=== PATIENT | female | born 1950 | race Caucasian/White ===

== ENCOUNTER → 2016-09-20 | Outpatient (REF) | payer MEDICARE ==
[~2016-09-20] MED LIST: AMLO5TAB2 PO; AZIT500T2 PO; CALCTAB97 PO; CARV25TA PO; CORITAB5 PO; GLIM1TAB PO; HYDR25TAB PO; LANTINJ4 SC; LEVA750T PO; LOSA100T36 PO; OMEP20CA3 PO; PRAV40TA2 PO
== END ==
LOC: M SFHCCLAY 15:55
PROVIDERS: ATTEND Family Medicine
DX: R30.0 Dysuria (principal)

== ENCOUNTER → 2016-12-26 | Outpatient (REF) | payer MEDICARE ==
[2016-12-26 12:59] LABS: CALCIUM LEVEL 8.7 MG/DL (8.8-10.2); CREATININE FOR GFR 1.58 MG/DL (0.55-1.02); GLOMERULAR FILTRATION RATE 34.8 (>45); POTASSIUM SERUM 4.5 MEQ/L (3.5-5.1)
== END ==
LOC: M SFHCCLAY 08:47
PROVIDERS: ATTEND Family Medicine
DX: E11.22 Type 2 diabetes mellitus with diabetic chronic kidney disease (principal)

== ENCOUNTER → 2017-04-23 | Outpatient (REF) | payer MEDICARE ==
[~2017-04-23] MED LIST changes: -LEVA750T PO; +LEVA750T7 PO
[2017-04-23 17:57] LABS: CALCIUM LEVEL 8.7 MG/DL (8.8-10.2); CREATININE FOR GFR 1.78 MG/DL (0.55-1.02); GLOMERULAR FILTRATION RATE 30.4 (>45); POTASSIUM SERUM 4.9 MEQ/L (3.5-5.1)
== END ==
LOC: M SFHCCLAY 12:13
PROVIDERS: ATTEND Family Medicine
DX: E11.9 Type 2 diabetes mellitus without complications (principal); I10 Essential (primary) hypertension

== ENCOUNTER → 2018-03-14 | Outpatient (REF) | payer MEDICARE ==
[2018-03-14 16:35] LABS: ANION GAP 8 MEQ/L (8-16); BLOOD UREA NITROGEN 33 MG/DL (7-18); CALCIUM LEVEL 8.3 MG/DL (8.8-10.2); CARBON DIOXIDE LEVEL 25 MEQ/L (21-32); CHLORIDE LEVEL 109 MEQ/L (98-107); CREATININE FOR GFR 1.75 MG/DL (0.55-1.30); GLOMERULAR FILTRATION RATE 30.9 (>45); GLUCOSE, FASTING 243 MG/DL (70-100); POTASSIUM SERUM 4.8 MEQ/L (3.5-5.1); SODIUM LEVEL 142 MEQ/L (136-145)
[2018-03-14 16:42] LABS: ESTIMATED AVERAGE GLUCOSE 223 MG/DL (60-110); HEMOGLOBIN A1c 9.4 %
== END ==
LOC: M SFHCCLAY 12:04
DX: E11.9 Type 2 diabetes mellitus without complications (principal)
CPT/HCPCS: 83036

== ENCOUNTER → 2018-07-03 | Outpatient (REF) | payer MEDICARE ==
[2018-07-04 12:09] LABS: ANION GAP 8 MEQ/L (8-16); BLOOD UREA NITROGEN 36 MG/DL (7-18); CALCIUM LEVEL 9.1 MG/DL (8.8-10.2); CARBON DIOXIDE LEVEL 24 MEQ/L (21-32); CHLORIDE LEVEL 105 MEQ/L (98-107); GLOMERULAR FILTRATION RATE 28.1 (>45); GLUCOSE, FASTING 146 MG/DL (70-100); POTASSIUM SERUM 5.3 MEQ/L (3.5-5.1); SODIUM LEVEL 137 MEQ/L (136-145)
[2018-07-04 15:20] LABS: ESTIMATED AVERAGE GLUCOSE 237 MG/DL (60-110); HEMOGLOBIN A1c 9.9 %
== END ==
LOC: M SFHCCLAY 16:41
DX: E11.3312 Type 2 diabetes mellitus with moderate nonproliferative diabetic retinopathy with macular edema, left eye (principal)
CPT/HCPCS: 83036

== ENCOUNTER → 2018-08-21 | Outpatient (REF) | payer MEDICARE ==
[~2018-08-21] MED LIST changes: -AMLO5TAB2 PO; +AMLO5TAB4 PO; +LOSA-4 PO; -LOSA100T36 PO
[2018-08-22 11:39] LABS: ALBUMIN 3.7 GM/DL (3.2-5.2); CALCIUM LEVEL 9.2 MG/DL (8.8-10.2); CREATININE FOR GFR 2.51 MG/DL (0.55-1.30); GLOMERULAR FILTRATION RATE 20.4 (>45); PHOSPHORUS LEVEL 5.5 MG/DL (2.5-4.9); THYROID STIMULATING HORMONE 1.4 uIU/ML (0.358-3.740)
== END ==
LOC: M SFHCCLAY 15:09
PROVIDERS: ATTEND Family Medicine
DX: E11.22 Type 2 diabetes mellitus with diabetic chronic kidney disease (principal)

== ENCOUNTER → 2018-08-21 | Outpatient (CLI) | payer MEDICARE ==
[~2018-08-21] MED LIST changes: -AMLO5TAB4 PO; +AMLO5TAB6 PO; -LOSA-4 PO; +LOSA100T50 PO
--- NOTE | 2018-08-21 15:56 | REP ---
Clinical: Diabetes mellitus . Comparison: 02/21/2015 . Technique: PA and lateral. Findings: The mediastinum and cardiac silhouette are normal. The lung amin are clear and without acute consolidation, effusion, or pneumothorax. The skeletal structures are intact and normal. Impression: 1. No acute cardiopulmonary process. Electronically Signed by Devang Stewart MD 08/21/2018 03:48 P
== END ==
LOC: M CLY 15:25
PROVIDERS: ATTEND Family Medicine
DX: E11.22 Type 2 diabetes mellitus with diabetic chronic kidney disease (principal)
CPT/HCPCS: 71046; 80069; 84443; G0463

== ENCOUNTER → 2018-09-01 | Outpatient (REF) | payer MEDICARE ==
[2018-09-01 12:30] LABS: CALCIUM LEVEL 8.8 MG/DL (8.8-10.2); CREATININE FOR GFR 2.13 MG/DL (0.55-1.30); GLOMERULAR FILTRATION RATE 24.5 (>45); POTASSIUM SERUM 3.1 MEQ/L (3.5-5.1)
== END ==
LOC: M SFHCCLAY 09:08
PROVIDERS: ATTEND Family Medicine
DX: E11.22 Type 2 diabetes mellitus with diabetic chronic kidney disease (principal); N18.9 Chronic kidney disease, unspecified

== ENCOUNTER → 2018-11-04 | Outpatient (CLI) | payer MEDICARE ==
--- NOTE | 2018-11-04 16:27 | REP ---
Chest two views HISTORY: Chronic heart failure Comparison: 08/21/2018 The lungs are clear. The cardiac silhouette is enlarged. The pulmonary vasculature is normal in appearance. The bony structure is intact. IMPRESSION: Cardiomegaly.
== END ==
LOC: M CLY 15:16
PROVIDERS: ATTEND Family Medicine
DX: I50.33 Acute on chronic diastolic (congestive) heart failure (principal)
CPT/HCPCS: 71046; 80048; G0463

== ENCOUNTER → 2018-11-04 | Outpatient (REF) | payer MEDICARE ==
[2018-11-05 11:37] LABS: CALCIUM LEVEL 8.9 MG/DL (8.8-10.2); CREATININE FOR GFR 2.15 MG/DL (0.55-1.30); GLOMERULAR FILTRATION RATE 24.3 (>45); POTASSIUM SERUM 4.4 MEQ/L (3.5-5.1)
== END ==
LOC: M SFHCCLAY 14:34
PROVIDERS: ATTEND Family Medicine
DX: E11.22 Type 2 diabetes mellitus with diabetic chronic kidney disease (principal)

== ENCOUNTER → 2018-12-17 | Outpatient (REF) | payer MEDICARE ==
[~2018-12-17] MED LIST changes: +BASA100I SC; +CARV12.5 PO; +CHOL4POW4 PO; +CHOL4PW PO; +FURO40TA2 PO; +GLIM2TAB PO; +HYDR-2541 PO; +INVO100T PO; +LANS30CA93 PO; +NYAM10003 TOP; +NYST1POW9 TOP; +PATIENT COMMENTS; +POTA10TA67 PO; +RISATAB3 PO; +TRAD5TAB PO
[2018-12-17 17:34] LABS: CALCIUM LEVEL 8.4 MG/DL (8.8-10.2); CREATININE FOR GFR 1.58 MG/DL (0.55-1.30); GLOMERULAR FILTRATION RATE 34.6 (>45); POTASSIUM SERUM 5.1 MEQ/L (3.5-5.1)
== END ==
LOC: M LABDRWCV 17:19
PROVIDERS: ATTEND Physician Assistant
DX: R19.7 Diarrhea, unspecified (principal); E87.6 Hypokalemia; R79.89 Other specified abnormal findings of blood chemistry

== ENCOUNTER 2018-12-25 12:16 | Inpatient (IN) | payer MEDICARE ==
[~2018-12-25 12:16] MED LIST changes: -BASA100I SC; -CARV12.5 PO; -CHOL4POW4 PO; -CHOL4PW PO; -FURO40TA2 PO; -GLIM2TAB PO; -HYDR25TAB PO; -INVO100T PO; -LANS30CA93 PO; -NYAM10003 TOP; -NYST1POW9 TOP; -PATIENT COMMENTS; -POTA10TA67 PO; -RISATAB3 PO; -TRAD5TAB PO
[2018-12-25] MEDS ORDERED: LANS30CA93 PO (12:38)
[2018-12-25] MEDS ORDERED: POTA10TA67 PO (12:38)
[2018-12-25] MEDS ORDERED: NS 500 ML IV ONE (12:45)
[2018-12-25 12:58] LABS: BASO # 0.1 10^3/uL (0.0-0.2); HEMATOCRIT 37.6 % (36.0-47.0); HEMOGLOBIN 11.4 g/dl (12.0-15.5); LYMPH # 0.8 10^3/uL (1.5-4.5); LYMPH % 15.7 % (24.0-44.0); MEAN CORPUSCULAR HEMOGLOBIN 23.6 pg (27.0-33.0); MEAN CORPUSCULAR HGB CONC 30.3 g/dl (32.0-36.5); MEAN CORPUSCULAR VOLUME 77.7 fl (80.0-96.0); MONO # 0.6 10^3/uL (0.0-0.8); MONO % 11.5 % (0.0-5.0); NEUTROPHILS # 3.6 10^3/uL (1.8-7.7); NEUTROPHILS % 71.6 % (36.0-66.0); PLATELET COUNT, AUTOMATED 306 10^3/uL (150-450); RED BLOOD COUNT 4.84 10^6/uL (4.00-5.40)
[2018-12-25 13:09] LABS: PROTHROMBIN TIME 13.3 SECONDS (12.1-14.4)
[2018-12-25 13:10] LABS: PARTIAL THROMBOPLASTIN TIME 26.8 SECONDS (25.4-37.6)
--- NOTE | 2018-12-25 13:33 | REP ---
Chest two views HISTORY: Abdominal pain Comparison: 11/04/2018 The lungs are clear. The heart is normal in size. The pulmonary vasculature is normal in appearance. The bony structure is intact. IMPRESSION: No acute disease. Electronically Signed by Cullen Woody MD 12/25/2018 01:24 P
[2018-12-25 13:39] LABS: ALBUMIN 3.1 GM/DL (3.2-5.2); ALT/SGPT 21 U/L (12-78); BILIRUBIN,DIRECT 0.2 MG/DL (0.0-0.2); BILIRUBIN,TOTAL 0.9 MG/DL (0.2-1.0); BLOOD UREA NITROGEN 25 MG/DL (7-18); CALCIUM LEVEL 8.1 MG/DL (8.8-10.2); CARBON DIOXIDE LEVEL 29 MEQ/L (21-32); CHLORIDE LEVEL 106 MEQ/L (98-107); CPK CREATINE PHOSPHOKINASE 43 U/L (26-192); GLUCOSE, FASTING 135 MG/DL (70-100); LIPASE 134 U/L (73-393); MB/CK RELATIVE INDEX 3.26 (< OR =4); POTASSIUM SERUM 2.9 MEQ/L (3.5-5.1); SODIUM LEVEL 140 MEQ/L (136-145); TOTAL PROTEIN 6.4 GM/DL (6.4-8.2); TROPONIN I < 0.02 NG/ML (< 0.10)
--- NOTE | 2018-12-25 13:47 | REP ---
GALLBLADDER ULTRASOUND: HISTORY: Right upper quadrant pain. A 1.9 cm mobile stone is present in the gallbladder. There is gallbladder sludge. The gallbladder wall is thickened measuring 3.8 mm. The common bile duct measures 7.6 mm. Scattered cysts are present in the liver. There are 1.5 and 1.8 cm cysts in the right lobe of the liver. There is a 1.3 cm cyst in the left lobe of the liver. The pancreas is not seen due to overlying bowel gas. The right kidney measures 4.7 cm in transverse x 4.5 cm in AP x 9.8 cm in cephalocaudal dimensions. A 1.7 cm isoechoic focus is present in the medial kidney. This may represent a lobulation, however, a mass cannot be excluded. There is no free fluid. IMPRESSION: 1. Cholelithiasis and gallbladder sludge. 2. Small liver cysts. 3. There is a 1.7 cm isoechoic focus in the right kidney that most likely represents a lobulation, however, a mass cannot be excluded. Electronically Signed by Cullen Woody MD 12/25/2018 01:52 P
[2018-12-25] MEDS ORDERED: POTASSIUM CHLORIDE 10 MEQ SR TABLET PO ONE (14:00)
[2018-12-25] MEDS ORDERED: NS 1,000 ML IV SCH (14:00)
[2018-12-25] MEDS ORDERED: KCL 10MEQ/100ML SWI (KRUN) 10 MEQ in APPROPRIATE DILUENT 1 EA IV ONE (14:30)
[2018-12-25] MEDS ORDERED: TRAD5TAB PO (14:33)
[2018-12-25] MEDS ORDERED: FURO40TA2 PO (14:33)
[2018-12-25] MEDS ORDERED: BASA100I SC (14:33)
[2018-12-25] MEDS ORDERED: INVO100T PO (14:33)
[2018-12-25] MEDS ORDERED: LOSA100T50 PO (14:33)
[2018-12-25] MEDS ORDERED: HYDR25TAB PO (14:33)
[2018-12-25 15:15] LABS: MAGNESIUM LEVEL 1.8 MG/DL (1.8-2.4)
[2018-12-25] MEDS ORDERED: GLUCOSE 4 GM CHEW TABLET PO PRN (15:15)
[2018-12-25] MEDS ORDERED: GLUCAGON FOR INJ 1 MG VIAL (J1610) SC PRN (15:15)
[2018-12-25] MEDS ORDERED: DEXTROSE 50% 50 ML SYRINGE IV PRN (15:15)
[2018-12-25] MEDS ORDERED: NS 1,500 ML IV SCH (15:30)
--- NOTE | 2018-12-25 15:31 | HPEPDOC ---
General Date of Admission 12/25/18 Primary Care Physician: Luis Colmenares MD Attending Physician: Ruben Tao MD Chief Complaint The patient is a 68-year-old female admitted with a reason for visit of Low Blood Pressure. History of Present Illness 68-year-old female with past medical history of hypertension, diabetes, dyslipidemia, and chronic kidney disease stage III presented to the ER with a chief complaint of diarrhea over the last 7-10 days. The patient states that she was seen in the ER at [facility] last Saturday and discharged from the ER with a diagnosis of gastritis. The patient tells me that over the last 10 days she has had nonbloody loose stools, averaging about 5 per day. She denies any fevers or abdominal pain. She does endorse some nausea but no vomiting. Of note, the patient states that she has several friends who have had similar symptoms. She denies recent hospitalizations, use of antibiotics, recent travel, or ingestion of any foreign foods. The patient was seen by her primary care physician today, and was sent to the ER due to borderline low blood pressures. The patient will be admitted under the service of the [facility] for further evaluation of possible infectious etiology for her persistent diarrhea. Home Medications Scheduled Amlodipine Besylate (Amlodipine Besylate) 5 Mg Tab, 5 MG PO DAILY, (Reported) Canagliflozin (Invokana) 100 Mg Tablet, 100 MG PO DAILY, (Reported) Carvedilol (Carvedilol) 25 Mg Tab, 12.5 MG PO BID, (Reported) Furosemide (Furosemide) 40 Mg Tablet, 40 MG PO DAILY, (Reported) Hydrochlorothiazide (Hydrochlorothiazide) 25 Mg Tablet, 50 MG PO DAILY, (Reported) Insulin Glargine,Hum.rec.anlog (Basaglar Kwikpen U-100) 100 Unit/1 Ml Insuln.pen, 50 UNIT SC DAILY, (Reported) Lansoprazole (Lansoprazole) 30 Mg Capsule.dr, 30 MG PO DAILY, (Reported) Linagliptin (Tradjenta) 5 Mg Tablet, 5 MG PO DAILY, (Reported) Losartan Potassium (Losartan Potassium) 100 Mg Tablet, 100 MG PO DAILY, (Reported) Potassium Chloride (Potassium Chloride) 10 Meq Tab.er.prt, 10 MEQ PO BID, (Reported) Pravastatin Sodium (Pravastatin Sodium) 40 Mg Tab, 40 MG PO DAILY, (Reported) Allergies Coded Allergies: Penicillins (Verified Allergy, Intermediate, Rash, 12/25/18) metformin (Verified Allergy, Intermediate, Rash, 12/25/18) pioglitazone (Verified Adverse Reaction, Intermediate, Elevated HR, 12/25/18) Sulfa (Sulfonamide Antibiotics) (Verified Adverse Reaction, Mild, upset stomach, 12/25/18) hydrochlorothiazide (Verified Adverse Reaction, Mild, Nausea, 12/25/18) rofecoxib (Verified Adverse Reaction, Mild, Upset stomach, 12/25/18) triamterene (Verified Adverse Reaction, Mild, Upset stomach, 12/25/18) Past Medical History Medical History As noted in HPI Social History * Smoker: Denies Alcohol: Denies Drugs: denies A-FIB/CHADSVASC A-FIB History Current/History of A-Fib/PAF?: No Review of Systems Other systems 10 point review of systems negative unless otherwise specified in HPI. Physical Examination General Exam: Positive: Alert, Cooperative, No Acute Distress ENT Exam: Positive: Atraumatic; Negative: Mucous membr. moist/pink (dry mucous membranes) Neck Exam: Negative: JVD Chest Exam: Positive: Clear to auscultation, Normal air movement Heart Exam: Positive: Rate Normal, Normal S1, Normal S2 Telemetry: Positive: Sinus Abdomen Exam: Positive: Soft; Negative: Tenderness Extremity Exam: Negative: Tenderness, Swelling Psych Exam: Positive: Oriented x 3 Vital Signs Vital Signs Date Time Temp Pulse Resp B/P (MAP) Pulse Ox O2 Delivery O2 Flow Rate FiO2 12/25/18 14:45 70 123/65 (84) 99 12/25/18 13:19 97.4 12/25/18 12:41 20 Room Air Laboratory Data Labs 24H Laboratory Tests 2 12/25/18 12:43: Immature Granulocyte % (Auto) 0.2, White Blood Count 5.0, Red Blood Count 4.84, Hemoglobin 11.4L, Hematocrit 37.6, Mean Corpuscular Volume 77.7L, Mean Corpuscular Hemoglobin 23.6L, Mean Corpuscular Hemoglobin Concent 30.3L, Red Cell Distribution Width 17.1H, Platelet Count 306, Neutrophils (%) (Auto) 71.6H, Lymphocytes (%) (Auto) 15.7L, Monocytes (%) (Auto) 11.5H, Eosinophils (%) (Auto) 0.0, Basophils (%) (Auto) 1.0, Neutrophils # (Auto) 3.6, Lymphocytes # (Auto) 0.8L, Monocytes # (Auto) 0.6, Eosinophils # (Auto) 0.0, Basophils # (Auto) 0.1, Nucleated Red Blood Cells % (auto) 0.0, Prothrombin Time 13.3, Prothromb Time International Ratio 1.00, Activated Partial Thromboplast Time 26.8, Anion Gap 5L, Glomerular Filtration Rate 28.0L, Calcium Level 8.1L, Magnesium Level 1.8, Aspartate Amino Transf (AST/SGOT) 14, Alanine Aminotransferase (ALT/SGPT) 21, Alkaline Phosphatase 139H, Total Bilirubin 0.9, Direct Bilirubin 0.2, Total Cre atine Kinase 43, Creatine Kinase MB 1.0, Creatine Kinase MB Relative Index 3.26, Troponin I < 0.02, Total Protein 6.4, Albumin 3.1L, Albumin/Globulin Ratio 0.94L, Lipase 134 CBC/BMP Laboratory Tests 12/25/18 12:43 Red Blood Count 4.84, Mean Corpuscular Volume 77.7 L, Mean Corpuscular Hemoglobin 23.6 L, Mean Corpuscular Hemoglobin Concent 30.3 L, Red Cell Distribution Width 17.1 H, Neutrophils (%) (Auto) 71.6 H, Lymphocytes (%) (Auto) 15.7 L, Monocytes (%) (Auto) 11.5 H, Eosinophils (%) (Auto) 0.0, Basophils (%) (Auto) 1.0, Neutrophils # (Auto) 3.6, Lymphocytes # (Auto) 0.8 L, Monocytes # (Auto) 0.6, Eosinophils # (Auto) 0.0, Basophils # (Auto) 0.1 Microbiology Microbiology 12/25/18 Gastrointestinal Tract Panel (PCR), Received Pending Plan / VTE VTE Prophylaxis Ordered?: Yes Plan Plan Persistent Diarrhea CT Abd/Pel pending GI Panel ordered in the ER White blood cell count within normal limits, patient afebrile in the ER, and denying any abdominal pain We will follow up on the CT abd/pel and GI panel before ordering any anti- diarrheals. Cont supportive treatment with judicious IV fluid hydration given history of Lasix/HCTZ use Right Sided Lobular Cyst vs Renal Mass on Ultrasound CT Abd/Pel ordered for further delineation Hypokalemia 2/2 Diarrhea We will check a mag level Supplemental K ordered Chronic Kidney Disease Stage III/IV Serum Cr appears to be at baseline DM Basal insulin ordered at reduced dose due to decreased appetite/diarrhea, this will need to be titrated based on PO intake blood glucose levels ISS ordered for additional coverage Hypertension Will hold B/P meds at this time as the patient was noted to be borderline h ypotensive on arrival DVT prophylaxis Heparin subcutaneous The patient will be admitted under the service of the [facility], who will begin to follow patient at 7 PM on 12/25/18. VEENA HUI MD December 25, 2018 15:31
--- NOTE | 2018-12-25 16:06 | REP ---
CT ABDOMEN AND PELVIS WITHOUT CONTRAST: CT abdomen and pelvis was performed without oral or IV contrast. Sagittal and coronal reconstruction images are performed. There is a 5 mm nodule in the right lower lobe. There is a large hiatal hernia. There is a 1 cm cyst in the left lobe of the liver, both cysts 1.4 cm in diameter more inferiorly along the ligamentum teres. Gallstones are seen in the gallbladder. A large gallstone is seen about 2 cm in diameter in the region of the neck of the gallbladder, and another smaller 2-3 calculi are seen adjacent to that. There is no gallbladder wall thickening. A few calcifications are seen in the spleen. Adrenals are unremarkable. Pancreas is grossly unremarkable. There appears to be a duodenal diverticulum. Kidneys demonstrate cortical scarring and mild atrophy. There is no gross renal mass, although evaluation for mass is limited without IV contrast. There is no hydronephrosis or nephrolithiasis bilaterally. There are mild to moderate atherosclerotic calcifications of the abdominal aorta without aneurysm. There is no adenopathy. There is no free air or free fluid. There is no bowel wall thickening. There is sigmoid diverticulosis without evidence of acute diverticulitis. Uterus is deviated to the right of midline. There is calcified fibroid measuring 1.5 cm in diameter. Urinary bladder is grossly unremarkable. There are degenerative changes of the spine. IMPRESSION: Large hiatal hernia. Two hypodensities in the liver probably represent cysts. There are gallstones in the gallbladder without gallbladder wall edema. No gross renal mass is seen but evaluation for renal mass is limited without IV contrast. There is sigmoid diverticulosis without diverticulitis. 5 mm nodule in the right lower lobe. Recommend followup CT of the chest to evaluate fort other possible nodules. Electronically Signed by Reid Lorenz MD 12/26/2018 12:27 P
[2018-12-25] MEDS: HumaLOG INSULIN (NovoLOG) PER UNIT SC SCH ×2 (18:15→21:00)
[2018-12-25] MEDS: HEPARIN SOD (PORCINE) 5000 UNITS/ML VIAL SC SCH (21:40)
[2018-12-25] MEDS: ACETAMINOPHEN TAB 650MG DOSE (2X325MG) PO PRN (21:41)
[2018-12-25 22:00] VITALS: BP 112/64
--- NOTE | 2018-12-25 22:19 | ECGEPIP ---
Stationary ECG Study [facility] - ED Test Date: 2018-12-25 Pat Name: ANSON BENSON Department: Room: - Gender: F [employer]: earl : 1950 Requested By: JORGITO Rogers Order Number: [id number] Reading MD: Lucia Gibson Measurements Intervals [place] Rate: 77 P: 34 TN: 151 QRS: 4 QRSD: 90 T: 43 QT: 418 QTc: 476 Interpretive Statements SINUS RHYTHM WITH FREQUENT SUPRAVENTRICULAR PREMATURE COMPLEXES POSSIBLE LEFT ATRIAL ENLARGEMENT MINIMAL ST DEPRESSION ABNORMAL RHYTHM ECG DECREASED RATE 02/21/15 Electronically Signed On 12-25-2018 22:18:55 EDT by Lucia Gibson
[2018-12-26 06:00] VITALS: BP 116/54
[2018-12-26 06:32] LABS: HEMATOCRIT 34.4 % (36.0-47.0); HEMOGLOBIN 10.1 g/dl (12.0-15.5); MEAN CORPUSCULAR HEMOGLOBIN 22.5 pg (27.0-33.0); MEAN CORPUSCULAR HGB CONC 29.4 g/dl (32.0-36.5); MEAN CORPUSCULAR VOLUME 76.6 fl (80.0-96.0); PLATELET COUNT, AUTOMATED 294 10^3/uL (150-450); RED BLOOD COUNT 4.49 10^6/uL (4.00-5.40)
[2018-12-26 07:04] LABS: ALBUMIN 2.6 GM/DL (3.2-5.2); BILIRUBIN,TOTAL 0.6 MG/DL (0.2-1.0); CALCIUM LEVEL 7.8 MG/DL (8.8-10.2); CREATININE FOR GFR 1.75 MG/DL (0.55-1.30); GLOMERULAR FILTRATION RATE 30.8 (>45); MAGNESIUM LEVEL 1.7 MG/DL (1.8-2.4); POTASSIUM SERUM 2.7 MEQ/L (3.5-5.1); TOTAL PROTEIN 5.7 GM/DL (6.4-8.2)
[2018-12-26] MEDS ORDERED: KCL 10MEQ/100ML SWI (KRUN) 10 MEQ in APPROPRIATE DILUENT 1 EA IV ONE (09:00)
[2018-12-26] MEDS: HumaLOG INSULIN (NovoLOG) PER UNIT SC SCH ×4 (09:10→20:57)
[2018-12-26] MEDS: HEPARIN SOD (PORCINE) 5000 UNITS/ML VIAL SC SCH ×2 (09:10→20:57)
[2018-12-26] MEDS: LEVEMIR (INSULIN DETEMIR) 1 UNITS/0.01ML SC SCH (09:10)
[2018-12-26 09:35] LABS: PERCENT SATURATION 6.6 % (13.2-45.0)
--- NOTE | 2018-12-26 10:57 | IPNPDOC ---
Subjective Date Seen The patient was seen on 12/26/18. Subjective Chief Complaint/HPI Patient reports continued diarrhea, nausea and is now with some intermittent mild lower abdominal discomfort. No vomiting, no fevers, she denies bloody stools Constitutional: Denies: Chills, Fever Pulmonary: Denies: Dyspnea, Cough Gastrointestinal: Reports: Nausea, Abdominal Pain, Diarrhea; Denies: Vomiting, Melena, Hematochezia Psych: Reports: Mood Normal Objective Physical Examination General Exam: Positive: Alert, Cooperative, No Acute Distress ENT Exam: Positive: Atraumatic; Negative: Mucous membr. moist/pink (dry mucous membranes) Neck Exam: Negative: JVD Chest Exam: Positive: Clear to auscultation, Normal air movement Heart Exam: Positive: Rate Normal, Normal S1, Normal S2 Telemetry: Positive: Sinus Abdomen Exam: Positive: Soft; Negative: Tenderness, Hepatospenomegaly Extremity Exam: Negative: Tenderness, Swelling Psych Exam: Positive: Oriented x 3 A-FIB/CHADSVASC A-FIB History Current/History of A-Fib/PAF?: No Assessment /Plan Assessment 12/26: Potassium and renal function improving. Further labwork ordered. May need to consider GI consult. -- CDT Problems (1) Diarrhea Status: Acute Problem Text: 12/26/18: GI Panel is negative. CT Scan performed in ER with diverticulosis without diverticulitis. GB u/s with cholelithiasis and gallbladder sludge. Etiology of diarrhea unclear. This may be related to gallbladder. I will consult with attending regarding consideration of adding a bile acid sequestrant. For now we will add an anti-diarrheal CT scan abd/pelvis without contrast IMPRESSION: Large hiatal hernia. Two hypodensities in the liver probably represent cysts. There are gallstones in the gallbladder without gallbladder wall edema. No gross renal mass is seen but evaluation for renal mass is limited without IV contrast. There is sigmoid diverticulosis without diverticulitis. 5 mm nodule in the right lower lobe. Recommend followup CT of the chest to evaluate further possible nodules.-This will need to be f/u out patient (2) Hypokalemia Status: Acute Problem Text: 12/26/18: K+ 2.7 this morning. K+ run administered. We will recheck K+ this afternoon. We may want to change her IVF to have KCL (3) Cholelithiasis Status: Acute Problem Text: 12/26/18: Patient without colic pain. U/S and CT as above. No evidence of cholyecystitis (4) Anemia Status: Chronic Response to Treatment: Stable Problem Text: 12/26/18: This appears to be chronic, most likely related to her CKD. Iron studies were added today. Patient without bloody or tarry stools. Baseline Hgb 10.7 Plan/VTE VTE Prophylaxis Ordered?: Yes (Heparin ) VS, I&O, 24H, Fishbone Vital Signs/I&O Vital Signs Date Time Temp Pulse Resp B/P (MAP) Pulse Ox O2 Delivery O2 Flow Rate FiO2 12/26/18 06:00 96.5 82 18 116/54 (74) 92 12/25/18 15:30 118.0 60 12/25/18 12:41 Room Air I&O- Last 24 Hours up to 6 AM 12/26/18 05:59 Intake Total 1655 ml Balance 1655 ml Laboratory Data 24H LABS Laboratory Tests 2 12/25/18 12:43: Immature Granulocyte % (Auto) 0.2, White Blood Count 5.0, Red Blood Count 4.84, Hemoglobin 11.4L, Hematocrit 37.6, Mean Corpuscular Volume 77.7L, Mean Corpuscular Hemoglobin 23.6L, Mean Corpuscular Hemoglobin Concent 30.3L, Red Cell Distribution Width 17.1H, Platelet Count 306, Neutrophils (%) (Auto) 71.6H, Lymphocytes (%) (Auto) 15.7L, Monocytes (%) (Auto) 11.5H, Eosinophils (%) (Auto) 0.0, Basophils (%) (Auto) 1.0, Neutrophils # (Auto) 3.6, Lymphocytes # (Auto) 0.8L, Monocytes # (Auto) 0.6, Eosinophils # (Auto) 0.0, Basophils # (Auto) 0.1, Nucleated Red Blood Cells % (auto) 0.0, Prothrombin Time 13.3, Prothromb Time International Ratio 1.00, Activated Partial Thromboplast Time 26.8, Anion Gap 5L, Glomerular Filtration Rate 28.0L, Calcium Level 8.1L, Magnesium Level 1.8, Aspartate Amino Transf (AST/SGOT) 14, Alanine Aminotransferase (ALT/SGPT) 21, Alkaline Phosphatase 139H, Total Bilirubin 0.9, Direct Bilirubin 0.2, Total Creatine Kinase 43, Creatine Kinase MB 1.0, Creatine Kinase MB Relative Index 3.26, Troponin I < 0.02, Total Protein 6.4, Albumin 3.1L, Albumin/Globulin Ratio 0.94L, Lipase 134 12/25/18 18:01: Bedside Glucose (Misc Panel) 132H 12/25/18 21:23: Bedside Glucose (Misc Panel) 194H 12/26/18 06:13: Nucleated Red Blood Cells % (auto) 0.0, Anion Gap 4L, Glomerular Filtration Rate 30.8L, Calcium Level 7.8L, Magnesium Level 1.7L, Aspartate Amino Transf (AST/SGOT) 15, Alanine Aminotransferase (ALT/SGPT) 18, Alkaline Phosphatase 110, Total Bilirubin 0.6, Total Protein 5.7L, Albumin 2.6L, Albumin/Globulin Ratio 0.84L, Blood Urea Nitrogen 26H, Creatinine 1.75H, Sodium Level 143, Potassium Level 2.7*L, Chloride Level 113H, Carbon Dioxide Level 26 CBC/BMP Laboratory Tests 12/25/18 12:43 Red Blood Count 4.84, Mean Corpuscular Volume 77.7 L, Mean Corpuscular Hemoglobin 23.6 L, Mean Corpuscular Hemoglobin Concent 30.3 L, Red Cell Distribution Width 17.1 H, Neutrophils (%) (Auto) 71.6 H, Lymphocytes (%) (Auto) 15.7 L, Monocytes (%) (Auto) 11.5 H, Eosinophils (%) (Auto) 0.0, Basophils (%) (Auto) 1.0, Neutrophils # (Auto) 3.6, Lymphocytes # (Auto) 0.8 L, Monocytes # (Auto) 0.6, Eosinophils # (Auto) 0.0, Basophils # (Auto) 0.1 12/26/18 06:13 Red Blood Count 4.49, Mean Corpuscular Volume 76.6 L, Mean Corpuscular Hemoglobin 22.5 L, Mean Corpuscular Hemoglobin Concent 29.4 L, Red Cell Distribution Width 17.2 H, Calcium Level 7.8 L, Aspartate Amino Transf (AST/SGOT) 15, Alanine Aminotransferase (ALT/SGPT) 18, Alkaline Phosphatase 110, Total Bilirubin 0.6, Total Protein 5.7 L, Albumin 2.6 L Microbiology Microbiology 12/25/18 Gastrointestinal Tract Panel (PCR) - Final, Complete MILI LAINEZ December 26, 2018 09:00 CARYL MARTINEZ DO December 27, 2018 00:27
[2018-12-26] MEDS: LOPERAMIDE 2 MG CAP PO PRN ×2 (11:14→17:50)
[2018-12-26] MEDS: KCL 20MEQ in NS 1000ML 1,000 ML IV SCH (11:14)
[2018-12-26 14:08] LABS: CALCIUM LEVEL 7.7 MG/DL (8.8-10.2); CREATININE FOR GFR 1.67 MG/DL (0.55-1.30); GLOMERULAR FILTRATION RATE 32.5 (>45); POTASSIUM SERUM 3.3 MEQ/L (3.5-5.1)
[2018-12-26] MEDS: LACTOBACILLUS ACIDOPHILUS CAP (BACID) PO SCH (18:22)
[2018-12-26 18:49] LABS: THYROID STIMULATING HORMONE 0.341 uIU/ML (0.358-3.740)
[2018-12-26 22:00] VITALS: BP 130/66
[2018-12-27] MEDS: ACETAMINOPHEN TAB 650MG DOSE (2X325MG) PO PRN (00:05)
[2018-12-27] MEDS: KCL 20MEQ in NS 1000ML 1,000 ML IV SCH ×2 (01:34→14:40)
[2018-12-27 05:48] LABS: BASO # 0.1 10^3/uL (0.0-0.2); EOS # 0.5 10^3/uL (0.0-0.50); EOS % 10.1 % (0.0-3.0); HEMATOCRIT 32.8 % (36.0-47.0); HEMOGLOBIN 9.7 g/dl (12.0-15.5); LYMPH # 1.1 10^3/uL (1.5-4.5); LYMPH % 20.4 % (24.0-44.0); MEAN CORPUSCULAR HEMOGLOBIN 22.8 pg (27.0-33.0); MEAN CORPUSCULAR HGB CONC 29.6 g/dl (32.0-36.5); MEAN CORPUSCULAR VOLUME 77.2 fl (80.0-96.0); MONO # 0.6 10^3/uL (0.0-0.8); MONO % 11.5 % (0.0-5.0); NEUTROPHILS # 2.9 10^3/uL (1.8-7.7); NEUTROPHILS % 56.8 % (36.0-66.0); PLATELET COUNT, AUTOMATED 303 10^3/uL (150-450); RED BLOOD COUNT 4.25 10^6/uL (4.00-5.40); WHITE BLOOD COUNT 5.2 10^3/uL (4.0-10.0)
[2018-12-27 06:00] VITALS: BP 134/75
[2018-12-27 06:27] LABS: CALCIUM LEVEL 7.8 MG/DL (8.8-10.2); CREATININE FOR GFR 1.26 MG/DL (0.55-1.30); POTASSIUM SERUM 2.9 MEQ/L (3.5-5.1)
[2018-12-27] MEDS: KCL 10MEQ/100ML SWI (KRUN) 10 MEQ in APPROPRIATE DILUENT 1 EA IV SCH ×3 (06:59→09:00)
[2018-12-27] MEDS: HEPARIN SOD (PORCINE) 5000 UNITS/ML VIAL SC SCH ×2 (08:27→21:12)
[2018-12-27] MEDS: LACTOBACILLUS ACIDOPHILUS CAP (BACID) PO SCH ×2 (08:27→17:02)
[2018-12-27] MEDS: LOPERAMIDE 2 MG CAP PO PRN (08:27)
[2018-12-27] MEDS: LEVEMIR (INSULIN DETEMIR) 1 UNITS/0.01ML SC SCH (08:28)
[2018-12-27] MEDS: HumaLOG INSULIN (NovoLOG) PER UNIT SC SCH ×5 (08:28→21:00)
[2018-12-27] MEDS ORDERED: POTASSIUM CHLORIDE 10 MEQ SR TABLET PO ONE (09:45)
[2018-12-27] MEDS ORDERED: PINK BISMUTH SUSP 524MG/30ML ORAL SYRINGE PO PRN (12:00)
[2018-12-27 14:00] VITALS: BP 125/58
[2018-12-27 15:35] LABS: ALBUMIN 2.7 GM/DL (3.2-5.2); BILIRUBIN,TOTAL 0.7 MG/DL (0.2-1.0); CALCIUM LEVEL 7.8 MG/DL (8.8-10.2); CREATININE FOR GFR 1.27 MG/DL (0.55-1.30); GLOMERULAR FILTRATION RATE 44.5 (>45); POTASSIUM SERUM 3.9 MEQ/L (3.5-5.1); TOTAL PROTEIN 6.2 GM/DL (6.4-8.2)
--- NOTE | 2018-12-27 16:57 | IPNPDOC ---
Subjective Date Seen The patient was seen on 12/27/18. Subjective Chief Complaint/HPI diarrhea Events since last encounter Patient is feeling better. K run ordered this morning for hypokalemia, but she did not tolerate the IV K, and instead was replaced orally. Reports no diarrhea today. She says that she is eating and drinking well. Constitutional: Reports: Fatigue; Denies: Chills, Fever ENT: Denies: Head Aches Pulmonary: Denies: Dyspnea, Cough Cardiovascular: Denies: Chest Pain Gastrointestinal: Reports: Diarrhea; Denies: Nausea, Vomiting, Abdominal Pain Psych: Reports: Mood Normal Objective Physical Examination General Exam: Positive: Alert, Cooperative, No Acute Distress ENT Exam: Positive: Atraumatic; Negative: Mucous membr. moist/pink (dry mucous membranes) Neck Exam: Negative: JVD Chest Exam: Positive: Clear to auscultation, Normal air movement Heart Exam: Positive: Rate Normal, Normal S1, Normal S2 Telemetry: Positive: Sinus Abdomen Exam: Positive: Soft; Negative: Tenderness, Hepatospenomegaly Extremity Exam: Negative: Tenderness, Swelling Psych Exam: Positive: Oriented x 3 A-FIB/CHADSVASC A-FIB History Current/History of A-Fib/PAF?: No Assessment /Plan Problems (1) Diarrhea Status: Acute Problem Text: 12/27: Diarrhea resolved, so we will not consult GI. Continue to monitor. 12/26/18: GI Panel is negative. CT Scan performed in ER with diverticulosis without diverticulitis. GB u/s with cholelithiasis and gallbladder sludge. Etiology of diarrhea unclear. This may be related to gallbladder. I will consult with attending regarding consideration of adding a bile acid sequestrant. For now we will add an anti-diarrheal CT scan abd/pelvis without contrast IMPRESSION: Large hiatal hernia. Two hypodensities in the liver probably represent cysts. There are gallstones in the gallbladder without gallbladder wall edema. No gross renal mass is seen but evaluation for renal mass is limited without IV contrast. There is sigmoid diverticulosis without diverticulitis. 5 mm nodule in the right lower lobe. Recommend followup CT of the chest to evaluate further possible nodules.-This will need to be f/u out patient (2) Hypokalemia Status: Acute Problem Text: 12/27: hypokalemic again this morning, improved upon recheck. 12/26/18: K+ 2.7 this morning. K+ run administered. We will recheck K+ this aftern oon. We may want to change her IVF to have KCL (3) Cholelithiasis Status: Acute Problem Text: 12/26/18: Patient without colic pain. U/S and CT as above. No evidence of cholyecystitis (4) Anemia Status: Chronic Response to Treatment: Stable Problem Text: 12/26/18: This appears to be chronic, most likely related to her CKD. Iron studies were added today. Patient without bloody or tarry stools. Baseline Hgb 10.7 Plan/VTE VTE Prophylaxis Ordered?: Yes (Heparin ) VS, I&O, 24H, Fishbone Vital Signs/I&O Vital Signs Date Time Temp Pulse Resp B/P (MAP) Pulse Ox O2 Delivery O2 Flow Rate FiO2 12/27/18 14:00 98.9 90 20 125/58 (80) 95 12/25/18 15:30 118.0 60 12/25/18 12:41 Room Air I&O- Last 24 Hours up to 6 AM 12/27/18 06:00 Intake Total 3165 ml Output Total 650 ml Balance 2515 ml Laboratory Data 24H LABS Laboratory Tests 2 12/26/18 17:31: Bedside Glucose (Misc Panel) 107 12/26/18 20:48: Bedside Glucose (Misc Panel) 155H 12/27/18 05:27: Immature Granulocyte % (Auto) 0.2, White Blood Count 5.2, Red Blood Count 4.25, Hemoglobin 9.7L, Hematocrit 32.8L, Mean Corpuscular Volume 77.2L, Mean Corpuscular Hemoglobin 22.8L, Mean Corpuscular Hemoglobin Concent 29.6L, Red Cell Distribution Width 17.2H, Platelet Count 303, Neutrophils (%) (Auto) 56.8, Lymphocytes (%) (Auto) 20.4L, Monocytes (%) (Auto) 11.5H, Eosinophils (%) (Auto) 10.1H, Basophils (%) (Auto) 1.0, Neutrophils # (Auto) 2.9, Lymphocytes # (Auto) 1.1L, Monocytes # (Auto) 0.6, Eosinophils # (Auto) 0.5, Basophils # (Auto) 0.1, Nucleated Red Blood Cells % (auto) 0.0, Anion Gap 5L, Glomerular Filtration Rate 45.0, Blood Urea Nitrogen 22H, Creatinine 1.26, Sodium Level 142, Potassium Level 2.9*L, Chloride Level 113H, Carbon Dioxide Level 24, Calcium Level 7.8L, Free Thyroxine 1.23 12/27/18 06:11: Bedside Glucose (Misc Panel) 141H 12/27/18 11:32: Bedside Glucose (Misc Panel) 266H 12/27/18 14:46: Anion Gap 3L, Glomerular Filtration Rate 44.5L, Blood Urea Nitrogen 19H, Creatinine 1.27, Sodium Level 142, Potassium Level 3.9#, Chloride Level 115H, Carbon Dioxide Level 24, Calcium Level 7.8L, Aspartate Amino Transf (AST/SGOT) 11, Alanine Aminotransferase (ALT/SGPT) 16, Alkaline Phosphatase 103, Total Bilirubin 0.7, Total Protein 6.2L, Albumin 2.7L, Albumin/Globulin Ratio 0.77L 12/27/18 16:36: Bedside Glucose (Misc Panel) 266H CBC/BMP Laboratory Tests 12/27/18 05:27 Red Blood Count 4.25, Mean Corpuscular Volume 77.2 L, Mean Corpuscular Hemoglobin 22.8 L, Mean Corpuscular Hemoglobin Concent 29.6 L, Red Cell Distribution Width 17.2 H, Neutrophils (%) (Auto) 56.8, Lymphocytes (%) (Auto) 20.4 L, Monocytes (%) (Auto) 11.5 H, Eosinophils (%) (Auto) 10.1 H, Basophils (%) (Auto) 1.0, Neutrophils # (Auto) 2.9, Lymphocytes # (Auto) 1.1 L, Monocytes # (Auto) 0.6, Eosinophils # (Auto) 0.5, Basophils # (Auto) 0.1, Calcium Level 7.8 L 12/27/18 14:46 Calcium Level 7.8 L, Aspartate Amino Transf (AST/SGOT) 11, Alanine Aminotransferase (ALT/SGPT) 16, Alkaline Phosphatase 103, Total Bilirubin 0.7, Total Protein 6.2 L, Albumin 2.7 L Microbiology Microbiology 12/25/18 Gastrointestinal Tract Panel (PCR) - Final, Complete CARYL MARTINEZ DO December 27, 2018 16:57
[2018-12-27] MEDS ORDERED: ONDANSETRON 4 MG ORAL DISINTEGRATING TAB (Q0162 PER 1MG) PO ONE (21:00)
[2018-12-27 22:00] VITALS: BP 154/98
[2018-12-27 23:00] VITALS: BP 138/88
[2018-12-28] MEDS: ACETAMINOPHEN TAB 650MG DOSE (2X325MG) PO PRN ×3 (01:44→19:50)
[2018-12-28 05:47] LABS: BASO # 0.1 10^3/uL (0.0-0.2); BASO % 1.1 % (0.0-1.0); HEMATOCRIT 34.1 % (36.0-47.0); HEMOGLOBIN 9.9 g/dl (12.0-15.5); LYMPH % 14.1 % (24.0-44.0); MEAN CORPUSCULAR HEMOGLOBIN 22.9 pg (27.0-33.0); MEAN CORPUSCULAR VOLUME 78.8 fl (80.0-96.0); MONO # 0.7 10^3/uL (0.0-0.8); MONO % 9.6 % (0.0-5.0); NEUTROPHILS # 5.2 10^3/uL (1.8-7.7); NEUTROPHILS % 74.8 % (36.0-66.0); PLATELET COUNT, AUTOMATED 301 10^3/uL (150-450); RED BLOOD COUNT 4.33 10^6/uL (4.00-5.40)
[2018-12-28 06:00] VITALS: BP 136/97
[2018-12-28 06:17] LABS: CALCIUM LEVEL 7.7 MG/DL (8.8-10.2); CREATININE FOR GFR 1.06 MG/DL (0.55-1.30); GLOMERULAR FILTRATION RATE 54.9 (>45)
[2018-12-28] MEDS: KCL 20MEQ in NS 1000ML 1,000 ML IV SCH (06:57)
[2018-12-28] MEDS: LEVEMIR (INSULIN DETEMIR) 1 UNITS/0.01ML SC SCH (08:31)
[2018-12-28] MEDS: LACTOBACILLUS ACIDOPHILUS CAP (BACID) PO SCH ×2 (08:31→17:02)
[2018-12-28] MEDS: HEPARIN SOD (PORCINE) 5000 UNITS/ML VIAL SC SCH ×2 (08:32→21:40)
[2018-12-28] MEDS: HumaLOG INSULIN (NovoLOG) PER UNIT SC SCH ×4 (08:32→21:00)
[2018-12-28 14:00] VITALS: BP 162/82
[2018-12-28] MEDS ORDERED: ONDANSETRON 4 MG ORAL DISINTEGRATING TAB (Q0162 PER 1MG) PO PRN (14:30)
[2018-12-28 16:09] LABS: AMYLASE 37 U/L (25-115); LIPASE 52 U/L (73-393)
[2018-12-28 21:11] LABS: CK-MB VALUE MASS < 1.0 NG/ML (<3.6); CPK CREATINE PHOSPHOKINASE 30 U/L (26-192); MB/CK RELATIVE INDEX 3.33 (< OR =4); NT-PRO BNP 7304 PG/ML (<125); TROPONIN I < 0.02 NG/ML (< 0.10)
--- NOTE | 2018-12-28 21:41 | REPVR ---
EXAM: US Duplex Right Lower Extremity Veins, Limited EXAM DATE/TIME: 12/28/2018 9:07 PM CLINICAL HISTORY: 68 years old, female; Pain; Leg, upper; Right; Additional info: Dyspnea and rle tenderness TECHNIQUE: Imaging protocol: Real-time Duplex ultrasound of the Right Lower Extremity with 2-D tsang scale, color Doppler flow and spectral waveform analysis. Limited exam was focused on the right lower extremity veins. COMPARISON: No relevant prior studies available. FINDINGS: Right deep veins: Unremarkable. The common femoral, femoral and popliteal veins are patent without thrombus. Normal Doppler waveforms. Normal compressibility and/or augmentation response. Right superficial veins: Unremarkable. Saphenofemoral junction is patent without thrombus. Soft tissues: Unremarkable. IMPRESSION: No sonographic evidence of deep vein thrombosis. Electronically signed by: Juan Pablo Bhardwaj On 12/28/2018 21:41:26 PM
[2018-12-28] MEDS ORDERED: FUROSEMIDE 40 MG/4 ML VIAL (J1940) IV ONE (21:45)
--- NOTE | 2018-12-28 21:52 | REPVR ---
EXAM: XR Chest, 2 Views EXAM DATE/TIME: 12/28/2018 9:00 PM CLINICAL HISTORY: 68 years old, female; Signs and symptoms; Dyspnea and shortness of breath; Additional info: Lateral view TECHNIQUE: Imaging protocol: XR of the chest, 2 views. COMPARISON: CR Chest, 2 view PA, Lat 12/25/2018 12:56 PM FINDINGS: Lungs: Bibasilar opacities, likely secondary to atelectasis. Mild perihilar infiltration is prominence of the interstitial markings, suggestive of edema. Pleural space: Bilateral pleural effusions. No pneumothorax. Heart/Mediastinum: Mild cardiomegaly. Bones/joints: Osteopenia. Mild degenerative changes of the spine. IMPRESSION: 1. Cardiomegaly and small pleural effusions with findings suggestive of mild edema. 2. Additional findings, as above. Electronically signed by: Juan Pablo Bhardwaj On 12/28/2018 21:51:37 PM
--- NOTE | 2018-12-28 21:53 | REPVR ---
EXAM: XR Abdomen, 3 or More Views EXAM DATE/TIME: 12/28/2018 9:00 PM CLINICAL HISTORY: 68 years old, female; Abdominal pain; Generalized; Additional info: Dyspnea TECHNIQUE: Imaging protocol: Frontal view of the abdomen/pelvis with upright view of the abdomen and one or more additional views. COMPARISON: No relevant prior studies available. FINDINGS: Gastrointestinal tract: Nonspecific bowel gas pattern. No obstruction. Intraperitoneal space: Normal. No free air. Organs: Probable gallstone in the right upper quadrant. Bones/joints: No acute osseous abnormality. Mild degenerative changes of the spine. Mild chronic appearing loss of height at L2. IMPRESSION: 1. No acute radiographic findings. 2. Additional findings, as above. Electronically signed by: Juan Pablo Bhardwaj On 12/28/2018 21:53:20 PM
[2018-12-28 22:00] VITALS: BP 156/88
--- NOTE | 2018-12-29 01:45 | IPNPDOC ---
Subjective Date Seen The patient was seen on 12/28/18. Subjective Chief Complaint/HPI Patient had nausea overnight, as well as some this afternoon. She has been eating and drinking, but complains of some abdominal pain. As opposed to the crampy abdominal pain that she had earlier in admission, this pain was dull. This evening she was noted to have desatted, requiring 2 L NC to keep her oxygen saturations in the 90s. However, she denied dyspnea, instead noting abdominal discomfort and "hiatal hernia pain." When pressed, she has been attributing her difficulty in lying flat to her hiatal hernia. Constitutional: Reports: Malaise; Denies: Chills, Fever Pulmonary: Denies: Dyspnea, Cough Cardiovascular: Reports: Orthopnea (upon prompting, she is probably ex periencing orthopnea) Gastrointestinal: Reports: Nausea, Abdominal Pain; Denies: Vomiting, Diarrhea, Constipation Musculoskeletal: Reports: Leg Pain (R leg tender to palpation) Objective Physical Examination General Exam: Positive: Alert, Cooperative, No Acute Distress ENT Exam: Positive: Atraumatic Neck Exam: Negative: JVD Chest Exam: Positive: Clear to auscultation, Normal air movement Heart Exam: Positive: Rate Normal, Normal S1, Normal S2 Telemetry: Positive: Sinus Abdomen Exam: Positive: Soft Extremity Exam: Positive: Tenderness (right leg); Negative: Swelling Psych Exam: Positive: Oriented x 3 A-FIB/CHADSVASC A-FIB History Current/History of A-Fib/PAF?: No Assessment /Plan Problems (1) CHF (congestive heart failure) Problem Text: We have been holding her diuretic during this admission, and review of her imaging and labwork suggests that she has developed some CHF. Given IV Lasix; she may further adjust as necessary tomorrow. (2) Diarrhea Status: Acute Problem Text: 12/28: She had a few episodes of nausea (yesterday and today), and she was prescribed Zofran. X ray ordered 12/27: Diarrhea resolved, so we will not consult GI. Continue to monitor. 12/26/18: GI Panel is negative. CT Scan performed in ER with diverticulosis wit hout diverticulitis. GB u/s with cholelithiasis and gallbladder sludge. Etiology of diarrhea unclear. This may be related to gallbladder. I will consult with attending regarding consideration of adding a bile acid sequestrant. For now we will add an anti-diarrheal CT scan abd/pelvis without contrast IMPRESSION: Large hiatal hernia. Two hypodensities in the liver probably represent cysts. There are gallstones in the gallbladder without gallbladder wall edema. No gross renal mass is seen but evaluation for renal mass is limited without IV contrast. There is sigmoid diverticulosis without diverticulitis. 5 mm nodule in the right lower lobe. Recommend followup CT of the chest to evaluate further possible nodules.-This will need to be f/u out patient (3) Hypokalemia Status: Acute Problem Text: 12/27: hypokalemic again this morning, improved upon recheck. 12/26/18: K+ 2.7 this morning. K+ run administered. We will recheck K+ this afternoon. We may want to change her IVF to have KCL (4) Cholelithiasis Status: Acute Problem Text: 12/26/18: Patient without colic pain. U/S and CT as above. No evidence of cholyecystitis (5) Anemia Status: Chronic Response to Treatment: Stable Problem Text: 12/26/18: This appears to be chronic, most likely related to her CKD. Iron studies were added today. Patient without bloody or tarry stools. Baseline Hgb 10.7 Plan/VTE VTE Prophylaxis Ordered?: Yes (Heparin ) VS, I&O, 24H, Fishbone Vital Signs/I&O Vital Signs Date Time Temp Pulse Resp B/P (MAP) Pulse Ox O2 Delivery O2 Flow Rate FiO2 12/28/18 14:00 98.7 97 22 162/82 (108) 94 12/25/18 15:30 118.0 60 12/25/18 12:41 Room Air I&O- Last 24 Hours up to 6 AM 12/28/18 06:00 Intake Total 3700 ml Output Total 800 ml Balance 2900 ml Laboratory Data 24H LABS Laboratory Tests 2 12/28/18 05:17: Immature Granulocyte % (Auto) 0.4, White Blood Count 7.0, Red Blood Count 4.33, Hemoglobin 9.9L, Hematocrit 34.1L, Mean Corpuscular Volume 78.8L, Mean Corpuscu lar Hemoglobin 22.9L, Mean Corpuscular Hemoglobin Concent 29.0L, Red Cell Distribution Width 17.2H, Platelet Count 301, Neutrophils (%) (Auto) 74.8H, Lymphocytes (%) (Auto) 14.1L, Monocytes (%) (Auto) 9.6H, Eosinophils (%) (Auto) 0.0, Basophils (%) (Auto) 1.1H, Neutrophils # (Auto) 5.2, Lymphocytes # (Auto) 1.0L, Monocytes # (Auto) 0.7, Eosinophils # (Auto) 0.0, Basophils # (Auto) 0.1, Nucleated Red Blood Cells % (auto) 0.0, Anion Gap 6L, Glomerular Filtration Rate 54.9, Blood Urea Nitrogen 17, Creatinine 1.06, Sodium Level 144, Potassium Level 4.0, Chloride Level 115H, Carbon Dioxide Level 23, Calcium Level 7.7L 12/28/18 11:24: Bedside Glucose (Misc Panel) 146H 12/28/18 15:43: Amylase Level 37, Lipase 52L 12/28/18 16:33: Bedside Glucose (Misc Panel) 115 12/28/18 19:25: Bedside Glucose (Misc Panel) 146H 12/28/18 20:09: D-Dimer, Quantitative 1471.55H, Total Creatine Kinase 30, Creatine Kinase MB < 1.0, Creatine Kinase MB Relative Index 3.33, Troponin I < 0.02, DX-Tvk-X-Type Natriuretic Peptide 7304H CBC/BMP Laboratory Tests 12/28/18 05:17 Red Blood Count 4.33, Mean Corpuscular Volume 78.8 L, Mean Corpuscular Hemoglobin 22.9 L, Mean Corpuscular Hemoglobin Concent 29.0 L, Red Cell Distribution Width 17.2 H, Neutrophils (%) (Auto) 74.8 H, Lymphocytes (%) (Auto) 14.1 L, Monocytes (%) (Auto) 9.6 H, Eosinophils (%) (Auto) 0.0, Basophils (%) (Auto) 1.1 H, Neutrophils # (Auto) 5.2, Lymphocytes # (Auto) 1.0 L, Monocytes # (Auto) 0.7, Eosinophils # (Auto) 0.0, Basophils # (Auto) 0.1, Calcium Level 7.7 L Microbiology Microbiology 12/28/18 Stool Lactoferrin - Final, Complete 12/28/18 Stool Occult Blood (BRIANNA) - Final, Complete 12/25/18 Gastrointestinal Tract Panel (PCR) - Final, Complete MICHELLE,CARYL DO December 28, 2018 22:10
[2018-12-29 06:00] VITALS: BP 135/75
[2018-12-29 06:52] LABS: BASO # 0.1 10^3/uL (0.0-0.2); BASO % 1.1 % (0.0-1.0); HEMATOCRIT 36.3 % (36.0-47.0); HEMOGLOBIN 10.7 g/dl (12.0-15.5); LYMPH # 0.7 10^3/uL (1.5-4.5); LYMPH % 9.7 % (24.0-44.0); MEAN CORPUSCULAR HGB CONC 29.5 g/dl (32.0-36.5); MEAN CORPUSCULAR VOLUME 78.1 fl (80.0-96.0); MONO # 0.8 10^3/uL (0.0-0.8); MONO % 10.4 % (0.0-5.0); NEUTROPHILS # 5.7 10^3/uL (1.8-7.7); NEUTROPHILS % 78.3 % (36.0-66.0); PLATELET COUNT, AUTOMATED 297 10^3/uL (150-450); RED BLOOD COUNT 4.65 10^6/uL (4.00-5.40); WHITE BLOOD COUNT 7.3 10^3/uL (4.0-10.0)
[2018-12-29 07:11] LABS: CALCIUM LEVEL 8.2 MG/DL (8.8-10.2); CREATININE FOR GFR 1.29 MG/DL (0.55-1.30); GLOMERULAR FILTRATION RATE 43.8 (>45)
[2018-12-29] MEDS: HEPARIN SOD (PORCINE) 5000 UNITS/ML VIAL SC SCH ×2 (07:41→20:51)
[2018-12-29] MEDS: LACTOBACILLUS ACIDOPHILUS CAP (BACID) PO SCH ×2 (07:41→16:58)
[2018-12-29] MEDS: LEVEMIR (INSULIN DETEMIR) 1 UNITS/0.01ML SC SCH (07:42)
[2018-12-29] MEDS: HumaLOG INSULIN (NovoLOG) PER UNIT SC SCH ×4 (07:43→20:45)
[2018-12-29] MEDS ORDERED: FUROSEMIDE 40 MG/4 ML VIAL (J1940) IV ONE (11:00)
--- NOTE | 2018-12-29 11:02 | IPNPDOC ---
Subjective Date Seen The patient was seen on 12/29/18. Subjective Chief Complaint/HPI Pt this morning states that she had difficulty lying down last night because she would become SOB. She reports that as long as she is sitting up she feels alright. Slight cough. General: Denies: Fatigue Constitutional: Denies: Chills, Fever Pulmonary: Reports: Dyspnea, Cough, Other Symptoms (Orthopnea) Cardiovascular: Denies: Chest Pain, Palpitations Gastrointestinal: Denies: Nausea, Vomiting, Diarrhea Neurological: Denies: Weakness Psych: Reports: Mood Normal Objective Physical Examination General Exam: Positive: Alert, Cooperative, No Acute Distress ENT Exam: Positive: Atraumatic Neck Exam: Negative: JVD Chest Exam: Positive: Normal air movement, Rales (bibasilar rales); Negative: Clear to auscultation Heart Exam: Positive: Rate Normal, Normal S1, Normal S2 Telemetry: Positive: Sinus Abdomen Exam: Positive: Soft Extremity Exam: Positive: Edema (trace pedal edema); Negative: Tenderness, Swelling Psych Exam: Positive: Oriented x 3 A-FIB/CHADSVASC A-FIB History Current/History of A-Fib/PAF?: No Assessment /Plan Problems (1) CHF (congestive heart failure) Status: Acute Response to Treatment: Uncompensated Discussed With: Nurse, Patient Problem Specific Plan: Monitor Clinically Problem Text: 12/29 Will give Lasix 40 mg IV x1 now, resume PO lasix tomorrow, anticipate d/c home tomorrow. 12/28 We have been holding her diuretic during this admission, and review of her imaging and labwork suggests that she has developed some CHF. Given IV Lasix; she may further adjust as necessary tomorrow. (2) Diarrhea Status: Resolved Problem Text: 12/28: She had a few episodes of nausea (yesterday and today), and she was prescribed Zofran. X ray ordered 12/27: Diarrhea resolved, so we will not consult GI. Continue to monitor. 12/26/18: GI Panel is negative. CT Scan performed in ER with diverticulosis without diverticulitis. GB u/s with cholelithiasis and gallbladder sludge. Etiology of diarrhea unclear. This may be related to gallbladder. I will consult with attending regarding consideration of adding a bile acid sequestrant. For now we will add an anti-diarrheal CT scan abd/pelvis without contrast IMPRESSION: Large hiatal hernia. Two hypodensities in the liver probably represent cysts. There are gallstones in the gallbladder without gallbladder wall edema. No gross renal mass is seen but evaluation for renal mass is limited without IV contrast. There is sigmoid diverticulosis without diverticulitis. 5 mm nodule in the right lower lobe. Recommend followup CT of the chest to evaluate further possible nodules.-This will need to be f/u out patient (3) Hypokalemia Status: Resolved Problem Text: 12/27: hypokalemic again this morning, improved upon recheck. 12/26/18: K+ 2.7 this morning. K+ run administered. We will recheck K+ this afternoon. We may want to change her IVF to have KCL (4) Cholelithiasis Status: Acute Response to Treatment: Stable Problem Text: 12/26/18: Patient without colic pain. U/S and CT as above. No evidence of cholyecystitis (5) Anemia Status: Chronic Response to Treatment: Stable Problem Text: 12/26/18: This appears to be chronic, most likely related to her CKD. Iron studies were added today. Patient without bloody or tarry stools. Baseline Hgb 10.7 Plan/VTE VTE Prophylaxis Ordered?: Yes (Heparin ) VS, I&O, 24H, Fishbone Vital Signs/I&O Vital Signs Date Time Temp Pulse Resp B/P (MAP) Pulse Ox O2 Delivery O2 Flow Rate FiO2 12/29/18 06:00 98.0 94 24 135/75 (95) 90 12/28/18 20:00 3.0 12/25/18 15:30 60 12/25/18 12:41 Room Air I&O- Last 24 Hours up to 6 AM 12/29/18 06:00 Intake Total 1160 ml Output Total 2050 ml Balance -890 ml Laboratory Data 24H LABS Laboratory Tests 2 12/28/18 11:24: Bedside Glucose (Misc Panel) 146H 12/28/18 15:43: Amylase Level 37, Lipase 52L 12/28/18 16:33: Bedside Glucose (Misc Panel) 115 12/28/18 19:25: Bedside Glucose (Misc Panel) 146H 12/28/18 20:09: D-Dimer, Quantitative 1471.55H, Total Creatine Kinase 30, Creatine Kinase MB < 1.0, Creatine Kinase MB Relative Index 3.33, Troponin I < 0.02, IY-Mir-D-Type Natriuretic Peptide 7304H 12/29/18 05:57: Immature Granulocyte % (Auto) 0.5, White Blood Count 7.3, Red Blood Count 4.65, Hemoglobin 10.7L, Hematocrit 36.3, Mean Corpuscular Volume 78.1L, Mean Corpuscular Hemoglobin 23.0L, Mean Corpuscular Hemoglobin Concent 29.5L, Red Cell Distribution Width 17.4H, Platelet Count 297, Neutrophils (%) (Auto) 78.3H, Lymphocytes (%) (Auto) 9.7L, Monocytes (%) (Auto) 10.4H, Eosinophils (%) (Auto) 0.0, Basophils (%) (Auto) 1.1H, Neutrophils # (Auto) 5.7, Lymphocytes # (Auto) 0.7L, Monocytes # (Auto) 0.8, Eosinophils # (Auto) 0.0, Basophils # (Auto) 0.1, Nucleated Red Blood Cells % (auto) 0.0, Anion Gap 7L, Glomerular Filtration Rate 43.8L, Blood Urea Nitrogen 22H, Creatinine 1.29, Sodium Level 138, Potassium Level 4.0, Chloride Level 107, Carbon Dioxide Level 24, Calcium Level 8.2L CBC/BMP Laboratory Tests 12/29/18 05:57 Red Blood Count 4.65, Mean Corpuscular Volume 78.1 L, Mean Corpuscular Hemoglobin 23.0 L, Mean Corpuscular Hemoglobin Concent 29.5 L, Red Cell Distribution Width 17.4 H, Neutrophils (%) (Auto) 78.3 H, Lymphocytes (%) (Auto) 9.7 L, Monocytes (%) (Auto) 10.4 H, Eosinophils (%) (Auto) 0.0, Basophils (%) (Auto) 1.1 H, Neutrophils # (Auto) 5.7, Lymphocytes # (Auto) 0.7 L, Monocytes # (Auto) 0.8, Eosinophils # (Auto) 0.0, Basophils # (Auto) 0.1, Calcium Level 8.2 L Microbiology Microbiology 12/28/18 Stool Lactoferrin - Final, Complete 12/28/18 Stool Occult Blood (BRIANNA) - Final, Complete 12/25/18 Gastrointestinal Tract Panel (PCR) - Final, Complete ISABELLA SALAZAR PA-C December 29, 2018 11:02
[2018-12-29 14:00] VITALS: BP 156/77
[2018-12-29 22:00] VITALS: BP 127/63
[2018-12-29] MEDS: ACETAMINOPHEN TAB 650MG DOSE (2X325MG) PO PRN (23:03)
[2018-12-30 06:00] VITALS: BP 128/66
[2018-12-30] MEDS: HEPARIN SOD (PORCINE) 5000 UNITS/ML VIAL SC SCH ×2 (08:00→20:39)
[2018-12-30] MEDS: LEVEMIR (INSULIN DETEMIR) 1 UNITS/0.01ML SC SCH (08:01)
[2018-12-30] MEDS: HumaLOG INSULIN (NovoLOG) PER UNIT SC SCH ×4 (08:01→20:39)
[2018-12-30] MEDS: LACTOBACILLUS ACIDOPHILUS CAP (BACID) PO SCH ×2 (08:01→17:43)
[2018-12-30] MEDS ORDERED: POLYVINYL ALCOHOL OPHTH SOLN 15 ML(LIQUITEARS) OU PRN (13:15)
[2018-12-30 14:00] VITALS: BP_SYST 143; BP_SYST 193; BP_DIAS 83
--- NOTE | 2018-12-30 18:25 | IPNPDOC ---
Subjective Date Seen The patient was seen on 12/30/18. Subjective Chief Complaint/HPI slowly forming stools, minimal abd pain Eyes: Denies: Pain ENT: Denies: Head Aches Pulmonary: Denies: Dyspnea Cardiovascular: Denies: Chest Pain, Palpitations Gastrointestinal: Reports: Nausea, Abdominal Pain (mild, BLQ); Denies: Vomiting Objective Physical Examination General Exam: Positive: Alert, Cooperative, No Acute Distress ENT Exam: Positive: Atraumatic Neck Exam: Negative: JVD Chest Exam: Positive: Normal air movement, Rales (bibasilar rales); Negative: Clear to auscultation Heart Exam: Positive: Rate Normal, Normal S1, Normal S2 Telemetry: Positive: Sinus Abdomen Exam: Positive: Soft Extremity Exam: Positive: Edema (trace pedal edema); Negative: Tenderness, Swelling Psych Exam: Positive: Oriented x 3 A-FIB/CHADSVASC A-FIB History Current/History of A-Fib/PAF?: No Current Oral Anticoagulant The: No Assessment /Plan Problems (1) Diarrhea Status: Resolved Problem Text: favor viral enteritis, but similar flare ~4-6W ago lasting ~1-2W 12/30 slowly forming stools-now [place] 5-6; check CRP/ESR, IBD sero; favor outpx colonoscopy 12/28 + stool lactoferrin 12/25 - GI PCR CT scan abd/pelvis without contrast IMPRESSION: Large hiatal hernia. Two hypodensities in the liver probably represent cysts. There are gallstones in the gallbladder without gallbladder wall edema. No gross renal mass is seen but evaluation for renal mass is limited without IV contrast. There is sigmoid diverticulosis without diverticulitis. 5 mm nodule in the right lower lobe. Recommend followup CT of the chest to evaluate further possible nodules.-This will need to be f/u out patient (2) CHF (congestive heart failure) Status: Acute Response to Treatment: Uncompensated Discussed With: Nurse, Patient Problem Specific Plan: Monitor Clinically Problem Text: 12/30 JVD 7, restarted HD fur 40 c los 100 / BNP 7304 c mild decomp/)2 requirement; therefore, fur 40 IV x1 now (check TTE-no prior in [place]) (3) Cholelithiasis Status: Acute Response to Treatment: Stable Problem Text: 12/26/18: Patient without colic pain. U/S and CT as above. No evidence of cholyecystitis (4) Anemia Status: Chronic Response to Treatment: Stable Problem Text: 12/26/18: This appears to be chronic, most likely related to her CKD. Iron studies were added today. Patient without bloody or tarry stools. Baseline Hgb 10.7 (5) CKD (chronic kidney disease) stage 3, GFR 30-59 ml/min Status: Chronic Problem Text: 12/29 1.3 dilutionally low and off ARB baseline cr ~1.7 (6) DM2 (diabetes mellitus, type 2) Status: Chronic Problem Text: HD glar 50, anahi 5, lillie 100 5/7 BG mid 200s on only ins det 10; therefore, to 25 QHS (7) Hypertension Status: Chronic Response to Treatment: Stable Problem Text: HD: carve 12.5 BID, amlo 5, los 100, fur 40 5/7 SBP 190; therefore, restarted los 100 Plan/VTE VTE Prophylaxis Ordered?: Yes (Heparin ) VS, I&O, 24H, Fishbone Vital Signs/I&O Vital Signs Date Time Temp Pulse Resp B/P (MAP) Pulse Ox O2 Delivery O2 Flow Rate FiO2 12/30/18 14:00 96.4 94 19 193/83 (119) 92 2.0 12/25/18 15:30 60 12/25/18 12:41 Room Air I&O- Last 24 Hours up to 6 AM 12/30/18 06:00 Intake Total 1720 ml Output Total 301 ml Balance 1419 ml Laboratory Data 24H LABS Laboratory Tests 2 12/29/18 20:40: Bedside Glucose (Misc Panel) 224H 12/30/18 06:52: Bedside Glucose (Misc Panel) 229H 12/30/18 11:13: Bedside Glucose (Misc Panel) 292H Microbiology Microbiology 12/28/18 Stool Lactoferrin - Final, Complete 12/28/18 Stool Occult Blood (BRIANNA) - Final, Complete 12/25/18 Gastrointestinal Tract Panel (PCR) - Final, Complete Jameson Monroy M.D. December 30, 2018 18:25
[2018-12-30 19:33] LABS: ALBUMIN 2.7 GM/DL (3.2-5.2); CALCIUM LEVEL 8.1 MG/DL (8.8-10.2); CREATININE FOR GFR 1.45 MG/DL (0.55-1.30); GLOMERULAR FILTRATION RATE 38.2 (>45); POTASSIUM SERUM 4.1 MEQ/L (3.5-5.1); TOTAL PROTEIN 6.2 GM/DL (6.4-8.2)
[2018-12-30 22:00] VITALS: BP 140/72
[2018-12-30 22:11] VITALS: O2SAT 95
[2018-12-31 06:00] VITALS: BP 127/78
[2018-12-31 06:41] LABS: BASO # 0.1 10^3/uL (0.0-0.2); BASO % 1.5 % (0.0-1.0); HEMOGLOBIN 9.9 g/dl (12.0-15.5); LYMPH # 1.2 10^3/uL (1.5-4.5); LYMPH % 18.6 % (24.0-44.0); MEAN CORPUSCULAR HEMOGLOBIN 23.1 pg (27.0-33.0); MEAN CORPUSCULAR VOLUME 77.1 fl (80.0-96.0); MONO # 0.5 10^3/uL (0.0-0.8); MONO % 8.7 % (0.0-5.0); NEUTROPHILS # 4.4 10^3/uL (1.8-7.7); NEUTROPHILS % 70.7 % (36.0-66.0); PLATELET COUNT, AUTOMATED 289 10^3/uL (150-450); RED BLOOD COUNT 4.28 10^6/uL (4.00-5.40); WHITE BLOOD COUNT 6.2 10^3/uL (4.0-10.0)
[2018-12-31 07:10] LABS: ALBUMIN 2.4 GM/DL (3.2-5.2); CALCIUM LEVEL 8.1 MG/DL (8.8-10.2); CREATININE FOR GFR 1.1 MG/DL (0.55-1.30); GLOMERULAR FILTRATION RATE 52.6 (>45); POTASSIUM SERUM 3.9 MEQ/L (3.5-5.1); TOTAL PROTEIN 5.7 GM/DL (6.4-8.2)
[2018-12-31] MEDS: LACTOBACILLUS ACIDOPHILUS CAP (BACID) PO SCH ×2 (08:24→17:15)
[2018-12-31] MEDS: FUROSEMIDE 40 MG TAB PO SCH (08:24)
[2018-12-31] MEDS: LEVEMIR (INSULIN DETEMIR) 1 UNITS/0.01ML SC SCH (08:25)
[2018-12-31] MEDS: LOSARTAN 50 MG TAB PO SCH (08:25)
[2018-12-31] MEDS: HEPARIN SOD (PORCINE) 5000 UNITS/ML VIAL SC SCH ×2 (08:25→21:01)
[2018-12-31] MEDS: HumaLOG INSULIN (NovoLOG) PER UNIT SC SCH ×4 (08:26→21:02)
--- NOTE | 2018-12-31 09:36 | IPNPDOC ---
Subjective Date Seen The patient was seen on 12/31/18. Subjective Chief Complaint/HPI Patient feels well today. No further diarrhea. Less dyspnea - about at baseline now (wears oxygen at bedtime at home) Constitutional: Denies: Chills, Fever Pulmonary: Reports: Dyspnea (improved); Denies: Cough Cardiovascular: Denies: Chest Pain, Palpitations, Orthopnea Gastrointestinal: Denies: Nausea, Vomiting, Abdominal Pain, Diarrhea, Constipation Objective Physical Examination General Exam: Positive: Alert, Cooperative, No Acute Distress ENT Exam: Positive: Atraumatic Neck Exam: Negative: JVD Chest Exam: Positive: Normal air movement; Negative: Clear to auscultation, Rales, Rhonchi, Wheezing Heart Exam: Positive: Rate Normal, Normal S1, Normal S2 Telemetry: Positive: Sinus Abdomen Exam: Positive: Soft Extremity Exam: Negative: Edema, Tenderness, Swelling Psych Exam: Positive: Oriented x 3 A-FIB/CHADSVASC A-FIB History Current/History of A-Fib/PAF?: No Current Oral Anticoagulant The: No Assessment /Plan Problems (1) Diarrhea Status: Resolved Problem Text: 12/31 - Diarrhea resolving 1 soft BM yesterday Inflam bowel wkup started with labs - will need outpatient colonoscopy favor viral enteritis, but similar flare ~4-6W ago lasting ~1-2W 12/30 slowly forming stools-now [place] 5-6; check CRP/ESR, IBD sero; favor outpx colonoscopy 12/28 + stool lactoferrin 12/25 - GI PCR CT scan abd/pelvis without contrast IMPRESSION: Large hiatal hernia. Two hypodensities in the liver probably represent cysts. There are gallstones in the gallbladder without gallbladder wall edema. No gross renal mass is seen but evaluation for renal mass is limited without IV contrast. There is sigmoid diverticulosis without diverticulitis. 5 mm nodule in the right lower lobe. Recommend followup CT of the chest to evaluate further possible nodules.-This will need to be f/u out patient (2) CHF (congestive heart failure) Status: Acute Response to Treatment: Uncompensated Discussed With: Nurse, Patient Problem Specific Plan: Monitor Clinically Problem Text: 12/31 - Appears clinically compensated today. Sats drop to 86% on RA overnight, but patient reports that she wears oxygen at bedtime at home chronically cont usual dose Lasix Echo pending 12/30 JVD 7, restarted HD fur 40 c los 100 6 BNP 7304 c mild decomp/)2 requirement; therefore, fur 40 IV x1 now (check TTE-no prior in [place]) (3) Cholelithiasis Status: Acute Response to Treatment: Stable Problem Text: 12/26/18: Patient without colic pain. U/S and CT as above. No evidence of cholyecystitis (4) Anemia Status: Chronic Response to Treatment: Stable Problem Text: 12/31 stable 12/26/18: This appears to be chronic, most likely related to her CKD. Iron studies were added today. Patient without bloody or tarry stools. Baseline Hgb 10.7 (5) CKD (chronic kidney disease) stage 3, GFR 30-59 ml/min Status: Chronic Problem Text: 12/29 1.3 dilutionally low and off ARB baseline cr ~1.7 (6) DM2 (diabetes mellitus, type 2) Status: Chronic Problem Text: 12/31 - HD glar 50, anahi 5, lillie 100 BS 200s - 300s - increase Levemir to 40 / BG mid 200s on only ins det 10; therefore, to 25 QHS (7) Hypertension Status: Chronic Response to Treatment: Stable Problem Text: HD: carve 12.5 BID, amlo 5, los 100, fur 40 5/7 SBP 190; therefore, restarted los 100 Plan/VTE VTE Prophylaxis Ordered?: Yes (Heparin ) Disposition PT eval today. D/C home in am if passes PT, no further diarrhea and resp status remains stable. VS, I&O, 24H, Fishbone Vital Signs/I&O Vital Signs Date Time Temp Pulse Resp B/P (MAP) Pulse Ox O2 Delivery O2 Flow Rate FiO2 12/31/18 08:25 127/78 12/31/18 06:00 97.6 83 20 96 2.0 12/30/18 22:11 Room Air 12/25/18 15:30 60 I&O- Last 24 Hours up to 6 AM 12/31/18 05:59 Intake Total 1590 ml Output Total 301 ml Balance 1289 ml Laboratory Data 24H LABS Laboratory Tests 2 12/30/18 11:13: Bedside Glucose (Misc Panel) 292H 12/30/18 16:59: Bedside Glucose (Misc Panel) 335H 12/30/18 18:53: Erythrocyte Sedimentation Rate 39H, Anion Gap 8, Glomerular Filtration Rate 38.2L, Blood Urea Nitrogen 24H, Creatinine 1.45H, Sodium Level 135L, Potassium Level 4.1, Chloride Level 104, Carbon Dioxide Level 23, Calcium Level 8.1L, Aspartate Amino Transf (AST/SGOT) 12, Alanine Aminotransferase (ALT/SGPT) 14, Alkaline Phosphatase 95, Total Bilirubin 1.0, Total Protein 6.2L, Albumin 2.7L, C-Reactive Protein, Quantitative 6.62H, Albumin/Globulin Ratio 0.77L 12/30/18 20:13: Bedside Glucose (Misc Panel) 334H 12/31/18 06:09: Immature Granulocyte % (Auto) 0.5, White Blood Count 6.2, Red Blood Count 4.28, Hemoglobin 9.9L, Hematocrit 33.0L, Mean Corpuscular Volume 77.1L, Mean Corpuscular Hemoglobin 23.1L, Mean Corpuscular Hemoglobin Concent 30.0L, Red Cell Distribution Width 17.4H, Platelet Count 289, Neutrophils (%) (Auto) 70.7H, Lymphocytes (%) (Auto) 18.6L, Monocytes (%) (Auto) 8.7H, Eosinophils (%) (Auto) 0.0, Basophils (%) (Auto) 1.5H, Neutrophils # (Auto) 4.4, Lymphocytes # (Auto) 1.2L, Monocytes # (Auto) 0.5, Eosinophils # (Auto) 0.0, Basophils # (Auto) 0.1, Nucleated Red Blood Cells % (auto) 0.0, Anion Gap 5L, Glomerular Filtration Rate 52.6, Blood Urea Nitrogen 19H, Creatinine 1.10, Sodium Level 141, Potassium Level 3.9, Chloride Level 110H, Carbon Dioxide Level 26, Calcium Level 8.1L, Aspartate Amino Transf (AST/SGOT) 9, Alanine Aminotransferase (ALT/SGPT) 13, Alkaline Phosphatase 84, Total Bilirubin 1.0, Total Protein 5.7L, Albumin 2.4L, RG-[id number]-Type Natriuretic Peptide 2504H, Albumin/Globulin Ratio 0.73L CBC/BMP Laboratory Tests 12/30/18 18:53 Calcium Level 8.1 L, Aspartate Amino Transf (AST/SGOT) 12, Alanine Aminotransferase (ALT/SGPT) 14, Alkaline Phosphatase 95, Total Bilirubin 1.0, Total Protein 6.2 L, Albumin 2.7 L 12/31/18 06:09 Calcium Level 8.1 L, Aspartate Amino Transf (AST/SGOT) 9, Alanine Aminotransferase (ALT/SGPT) 13, Alkaline Phosphatase 84, Total Bilirubin 1.0, Total Protein 5.7 L, Albumin 2.4 L, Red Blood Count 4.28, Mean Corpuscular Volume 77.1 L, Mean Corpuscular Hemoglobin 23.1 L, Mean Corpuscular Hemoglobin Concent 30.0 L, Red Cell Distribution Width 17.4 H, Neutrophils (%) (Auto) 70.7 H, Lymphocytes (%) (Auto) 18.6 L, Monocytes (%) (Auto) 8.7 H, Eosinophils (%) (Auto) 0.0, Basophils (%) (Auto) 1.5 H, Neutrophils # (Auto) 4.4, Lymphocytes # (Auto) 1.2 L, Monocytes # (Auto) 0.5, Eosinophils # (Auto) 0.0, Basophils # (Auto) 0.1 Microbiology Microbiology 12/28/18 Stool Lactoferrin - Final, Complete 12/28/18 Stool Occult Blood (BRIANNA) - Final, Complete 12/25/18 Gastrointestinal Tract Panel (PCR) - Final, Complete GHADA TRISTAN PA-C December 31, 2018 09:36
[2018-12-31 14:00] VITALS: BP 133/70
--- NOTE | 2018-12-31 19:35 | ECHO ---
DATE OF PROCEDURE: 12/31/2018 AGE: 68 GENDER: Female HEIGHT: 69 inches WEIGHT: 138 pounds BODY SURFACE AREA: 1.72 sq m INPATIENT: [address] [place] [address] Room 4234. REFERRING PHYSICIAN: Dr. Jameson Monroy INDICATION: Heart failure. MEASUREMENTS: 2D MEASUREMENTS: RV: 5.5 cm LV: 3.9 cm Septum: 1.3 cm Posterior wall: 1.3 cm Aortic root: 3.2 cm LA: 4.8 cm LVEF: 75% DOPPLER MEASUREMENTS: AV: 1.1 m/s LVOT: 0.9 m/s LVOT diameter: 2.1 cm MV-E: 230 A: 240 E/A ratio: 1 Early mitral deceleration time: 292 ms Mean MV diastolic gradient 20 mmHg PV: 0.95 m/s Pulmonary artery acceleration time: 80 ms RVSP: 65 mmHg IVC: 2.0 cm COMMENTS: Normal sinus rhythm with out intraventricular conduction disturbance. Isolated PVCs. M-mode and two-dimensional echocardiography was performed with pulsed, continuous wave, color flow and tissue Doppler studies. Mild concentric left ventricle hypertrophy with septal wall motion abnormality believed to be due to right ventricular pressure overload yet preserved global resting systolic function. At least moderately dilated left atrium. Unable to estimate mean left atrial pressure in light of intrinsic mitral valve disorder. Prominently dilated right heart chambers with hypokinesis of the right ventricular free wall and Doppler evidence of severe pulmonary hypertension. IVC size upper limits of normal with reduced respiratory collapse suggestive an elevated central venous pressure. Aortic valvular sclerosis without functional valvular abnormality. Normal aortic root size. 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 Normal appearing tricuspid valve with moderately severe insufficiency. No apparent intracardiac mass. Minuscule posterior pericardial effusion. Based on the above test findings we would recommend consideration of cardiac catheterization with view to mitral valvuloplasty versus replacement. MTDD
[2018-12-31] MEDS: ACETAMINOPHEN TAB 650MG DOSE (2X325MG) PO PRN (21:52)
[2018-12-31 22:00] VITALS: BP 151/69
[2019-01-01 02:14] VITALS: O2SAT 92
[2019-01-01 06:00] VITALS: BP 128/65
[2019-01-01 06:34] LABS: ALBUMIN 2.5 GM/DL (3.2-5.2); BILIRUBIN,TOTAL 0.9 MG/DL (0.2-1.0); CALCIUM LEVEL 8.1 MG/DL (8.8-10.2); CREATININE FOR GFR 1.33 MG/DL (0.55-1.30); GLOMERULAR FILTRATION RATE 42.2 (>45); POTASSIUM SERUM 4.2 MEQ/L (3.5-5.1); TOTAL PROTEIN 5.7 GM/DL (6.4-8.2)
[2019-01-01 09:00] VITALS: O2SAT 95
[2019-01-01 09:12] VITALS: BP 128/65
[2019-01-01] MEDS: LOSARTAN 50 MG TAB PO SCH (09:12)
[2019-01-01] MEDS: LEVEMIR (INSULIN DETEMIR) 1 UNITS/0.01ML SC SCH (09:12)
[2019-01-01] MEDS: FUROSEMIDE 40 MG TAB PO SCH (09:13)
[2019-01-01] MEDS: LACTOBACILLUS ACIDOPHILUS CAP (BACID) PO SCH (09:13)
[2019-01-01] MEDS: HumaLOG INSULIN (NovoLOG) PER UNIT SC SCH (09:13)
[2019-01-01] MEDS: HEPARIN SOD (PORCINE) 5000 UNITS/ML VIAL SC SCH (09:14)
[2019-01-01] MEDS ORDERED: RISATAB3 PO (09:43)
--- NOTE | 2019-01-01 12:59 | DSES ---
DATE OF ADMISSION: 12/25/2018 DATE OF DISCHARGE: 01/01/2019 BRIEF HISTORY AND PHYSICAL: The patient is a 68-year-old patient of Dr. Colmenares with a past medical history of hypertension, diabetes, dyslipidemia, chronic kidney disease, who presented to the emergency room complaining of diarrhea over the last 7-10 days, seen at emergency room () [facility], discharged with a diagnosis of gastritis. She has continued to have frequent nonbloody stools, averaging five a day, some nausea. no vomiting. Several friends with similar symptoms. Came to the emergency room with a borderline low blood pressure. PAST MEDICAL HISTORY: As above. PERTINENT LABORATORIES ON ADMISSION: White count 5, hemoglobin 11.4, platelets 306,000. Sodium 140, potassium 2.9, BUN 25, creatinine 1.9, glucose 135. Gallbladder ultrasound showed cholelithiasis and sludge, small liver cyst 1.7 cm isoechoic focus in the right kidney, most likely represents lobulation. CT of the abdomen and pelvis showed large hiatal hernia, two hypodensities in the liver probably cysts, gallstones in the gallbladder without gallbladder wall edema. No gross renal mass is seen, but the evaluation of a renal mass is limited without IV contrast. There is sigmoid diverticulosis without diverticulitis, a 5-mm nodule in the right lower lobe. Recommend followup CT of the chest to evaluate for possible nodules. HOSPITAL COURSE: 1. The patient was admitted for diarrhea secondary to a viral etiology. Gastrointestinal (GI) panel was negative. Stool lactoferrin was positive. Some inflammatory bowel workup has been initiated due to the recurrent nature of her symptoms. Most of that workup is all still pending at the time of her discharge and will need to be followed up as an outpatient. Her diarrhea gradually resolved with supportive care, and her bowels are back to normal. She did have a heme-positive stool, and she had a similar flare of this enteritis about 4-6 weeks ago. It lasted a couple of weeks. As I said, her inflammatory bowel blood work is pending and would recommend consideration for outpatient GI workup, possibly upper and lower endoscopy. 2. Lung nodule, right lower lobe of the lung. CT of the chest as an outpatient to further evaluate is recommended. 3. Possible kidney lesion. The ultrasound thought this was lobularity. CT was done without contrast, did not show a renal mass. However, it is limited due to the noncontrast nature. Would defer any further evaluation to her primary care provider. 4. Congestive heart failure. She received intravenous (IV) fluids for her hypotension from hypovolemia related to the diarrhea. However, she developed some decompensation of her congestive heart failure with saturations dropping into the 80s overnight. She was given IV Lasix and diuresed. Echocardiogram was obtained, as we had not found a previous one in the system. This showed normal sinus rhythm without intraventricular conduction disturbance, mild concentric left ventricular hypertrophy (LVH) with septal wall motion abnormality believed to be due to right ventricular pressure overload at preserved global resting systolic function, at least moderately dilated left atrium, unable to estimate mean left atrial pressure in light of intrinsic mitral valve disorder, prominently dilated right heart chambers with hypokinesis of the right ventricular wall, and Doppler evidence for severe pulmonary hypertension, inferior vena cava (IVC) size upper limits of normal, reduced respiratory collapse suggestive of elevated central venous pressure, aortic valve sclerosis without functional valvular abnormality, normal aortic root size, suspected rheumatic mitral valve disease with severe mitral stenosis, and only trace insufficiency, normal-appearing tricuspid valve with moderate severe insufficiency, no intracardiac mass. Based on the above test findings, there was a recommendation for consideration of cardiac catheterization with a view toward mitral valvuloplasty versus replacement. She is compensated on her usual dose of a diuretic and is on oxygen at home at baseline and will continue this. 5. 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 RECOMMENDATIONS: 1. Would consider cardiac catheterization with a view toward mitral valvuloplasty versus replacement. I would defer that conversation to her primary care provider as an outpatient. She is currently compensated. 2. Anemia, chronic, most likely related to chronic kidney disease, remains stable. She did have a heme-positive stool with iron studies showing iron deficiency, which will warrant further workup as discussed above. 3. Cholelithiasis. She is without colic pain. No evidence of cholecystitis. 4. Diabetes mellitus type 2. She is on Levemir and sliding-scale insulin. She will go back on her usual oral doses of medications upon discharge. 5. Hypertension. Remains on her usual home doses of medications upon discharge, now that her blood pressure has normalized, and she is no longer having diarrhea, eating and drinking well. DISPOSITION: The patient is stable for discharge home, to followup with Dr. Colmenares next week. Diet: 2-gram sodium, consistent carbohydrate. Activity as tolerated. MEDICATIONS: - probiotics twice a day - amlodipine of 5 mg daily - Invokana 100 mg daily - carvedilol 12.5 mg twice a day - furosemide 40 mg daily - hydrochlorothiazide 50 mg daily - Basaglar 50 units daily - lansoprazole 30 mg daily - Tradjenta 5 mg daily - losartan 100 mg daily - potassium 10 mEq twice a day - pravastatin 40 mg daily DISCHARGE DIAGNOSES: 1. Hypotension secondary to dehydration from diarrhea. 2. Viral enteritis. 3. Right lower lobe lung nodule on CT of the chest requires outpatient followup. 4. Suspected mitral valve disease with severe mitral stenosis requires outpatient workup. 5. Possible kidney lesion. See above. 6. Congestive heart failure. 7. Anemia, iron deficient with heme-positive stools. 8. Chronic kidney disease stage III. 9. Cholelithiasis. 10. Diabetes mellitus type 2, insulin-requiring. 11. Hypertension.
[2019-01-07 00:06] LABS: Chitobioside Carbohydrat (ACCA 4 units (0-90); Laminaribioside Carbohyd (ALCA 2 units (0-60); Mannobioside Carbohydrat (AMCA 20 units (0-100); Saccharomyces cerevisiae IgG A 38 units (0-50)
== END 2019-01-01 11:15 | disposition home or self-care (01) | DRG 391 ==
LOC: M ED 12:16 → M ED INP 15:04 → M MSPAV 17:21 → OBSVTOIN 12-28 21:57
PROVIDERS: ADMIT Internal Medicine; ATTEND Family Medicine
DX: A08.4 Viral intestinal infection, unspecified (principal); I50.31 Acute diastolic (congestive) heart failure; I13.0 Hypertensive heart and chronic kidney disease with heart failure and stage 1 through stage 4 chronic kidney disease, or unspecified chronic kidney disease; E11.22 Type 2 diabetes mellitus with diabetic chronic kidney disease; E78.5 Hyperlipidemia, unspecified; N18.3 Chronic kidney disease, stage 3 (moderate); K80.20 Calculus of gallbladder without cholecystitis without obstruction; E87.6 Hypokalemia; N28.89 Other specified disorders of kidney and ureter; I05.9 Rheumatic mitral valve disease, unspecified; D63.1 Anemia in chronic kidney disease; R91.1 Solitary pulmonary nodule; I95.89 Other hypotension; Z79.4 Long term (current) use of insulin; Z79.899 Other long term (current) drug therapy; Z88.0 Allergy status to penicillin; Z88.2 Allergy status to sulfonamides; Z88.8 Allergy status to other drugs, medicaments and biological substances

== ENCOUNTER 2019-01-07 19:18 | Inpatient (IN) | payer MEDICARE ==
[~2019-01-07] VITALS: Ht 175.3 cm; Wt 83.2 kg
[~2019-01-07 19:18] MED LIST changes: +BASA100I SC; +FURO40TA2 PO; +HYDR25TAB PO; +INVO100T PO; +LANS30CA93 PO; +POTA10TA67 PO; +RISATAB3 PO; +TRAD5TAB PO
[2019-01-07] MEDS ORDERED: NS 1,000 ML IV ONE ×2 (20:00→21:30)
[2019-01-07] MEDS ORDERED: ONDANSETRON 4MG/2ML VIAL (J2405) IV ONE (20:00)
[2019-01-07 20:32] LABS: BASO % 0.5 % (0.0-1.0); EOS % 0.1 % (0.0-3.0); HEMATOCRIT 36.2 % (36.0-47.0); LYMPH # 0.6 10^3/uL (1.5-4.5); LYMPH % 7.5 % (24.0-44.0); MEAN CORPUSCULAR HGB CONC 30.4 g/dl (32.0-36.5); MEAN CORPUSCULAR VOLUME 75.7 fl (80.0-96.0); MONO # 0.9 10^3/uL (0.0-0.8); MONO % 11.1 % (0.0-5.0); NEUTROPHILS # 6.3 10^3/uL (1.8-7.7); NEUTROPHILS % 80.5 % (36.0-66.0); PLATELET COUNT, AUTOMATED 238 10^3/uL (150-450); RED BLOOD COUNT 4.78 10^6/uL (4.00-5.40); WHITE BLOOD COUNT 7.9 10^3/uL (4.0-10.0)
[2019-01-07 21:02] LABS: ALBUMIN 3.3 GM/DL (3.2-5.2); ALT/SGPT 13 U/L (12-78); BILIRUBIN,DIRECT 0.2 MG/DL (0.0-0.2); BILIRUBIN,TOTAL 0.9 MG/DL (0.2-1.0); BLOOD UREA NITROGEN 34 MG/DL (7-18); CALCIUM LEVEL 8.2 MG/DL (8.8-10.2); CARBON DIOXIDE LEVEL 27 MEQ/L (21-32); CHLORIDE LEVEL 101 MEQ/L (98-107); CPK CREATINE PHOSPHOKINASE 33 U/L (26-192); CREATININE FOR GFR 2.21 MG/DL (0.55-1.30); GLOMERULAR FILTRATION RATE 23.5 (>45); GLUCOSE, FASTING 128 MG/DL (70-100); LIPASE 107 U/L (73-393); MB/CK RELATIVE INDEX 3.33 (< OR =4); POTASSIUM SERUM 2.8 MEQ/L (3.5-5.1); SODIUM LEVEL 137 MEQ/L (136-145); TOTAL PROTEIN 6.4 GM/DL (6.4-8.2); TROPONIN I < 0.02 NG/ML (< 0.10)
--- NOTE | 2019-01-07 21:11 | ECGEPIP ---
Stationary ECG Study [facility] - ED Test Date: 2019-01-07 Pat Name: ANSON BENSON Department: Room: - Gender: F [facility] Consultant: CT : 1950 Requested By: JORGITO Rogers Order Number: [id number] Reading MD: Lucia Gibson Measurements Intervals [place] Rate: 80 P: 47 [place]: 156 QRS: 15 QRSD: 90 T: 41 QT: 412 QTc: 476 Interpretive Statements SINUS RHYTHM WITH FREQUENT SUPRAVENTRICULAR PREMATURE COMPLEXES ABNORMAL RHYTHM ECG PROLONGED QTC Electronically Signed On 01-07-2019 21:10:56 EDT by Lucia Gibson
--- NOTE | 2019-01-07 22:28 | REPVR ---
EXAM: CT Abdomen and Pelvis Without Contrast EXAM DATE/TIME: 01/07/2019 9:59 PM CLINICAL HISTORY: 68 years old, female; Abdominal pain; Generalized; Prior surgery; Additional info: Pain. Nausea. Vomiting. TECHNIQUE: Imaging protocol: Axial computed tomography images of the abdomen and pelvis without contrast. Coronal and sagittal reformatted images were created and reviewed. Radiation optimization: All CT scans at this facility use at least one of these dose optimization techniques: automated exposure control; mA and/or kV adjustment per patient size (includes targeted exams where dose is matched to clinical indication); or iterative reconstruction. COMPARISON: CT ABD PELVIS W/O CONTRAST 12/25/2018 3:11 PM FINDINGS: Lungs: Slight bibasilar interstitial prominence with minimal bilateral lower lobe fibro-atelectatic change. There is question of minimal bilateral lower lobe infiltrates. Pleural space: Minimal right pleural effusion. Heart: Trace pericardial effusion. Mediastinum: Moderate hiatal hernia with organoaxial rotation. ABDOMEN: Liver: There is a left liver cyst measuring 10 mm. Gallbladder and bile ducts: There are a few gallstones in the gallbladder which measure up to 19 mm. Pancreas: Normal. No ductal dilation. Spleen: Normal. No splenomegaly. Adrenals: Normal. No mass. Kidneys and ureters: Normal. No hydronephrosis. Stomach and bowel: There is a diverticulum projecting from the proximal duodenal sweep. Colonic diverticulosis with slight pericolonic induration and slight wall thickening in the proximal sigmoid suggesting minimal or early diverticulitis. Appendix: There are no changes of appendicitis. A normal appendix is not seen. PELVIS: Bladder: Unremarkable as visualized. Reproductive: Retroverted uterus with calcified fibroid. ABDOMEN and PELVIS: Intraperitoneal space: Normal. No free air. No significant fluid collection. Bones/joints: No acute fracture. No dislocation. Soft tissues: Unremarkable. Vasculature: There is mild calcification of the abdominal aorta with extension into the iliac arteries. Lymph nodes: Normal. No enlarged lymph nodes. IMPRESSION: 1. Colonic diverticulosis with question of early or minimal diverticulitis of the proximal sigmoid which may be very slightly increased since 12/25/2018. 2. Minimal right pleural effusion which is new since the prior study with slight bibasilar interstitial prominence and question of minimal infiltrates which are new or increased. Minimal bilateral lower lobe fibro-atelectatic change is similar. 3. Trace pericardial effusion which is similar. 4. Moderate hiatal hernia which is similar. 5. Cholelithiasis. Electronically signed by: Ciro Martins On 01/07/2019 22:28:06 PM
[2019-01-07] MEDS ORDERED: metroNIDAZOLE 500 MG in APPROPRIATE DILUENT 1 EA IV ONE (23:15)
[2019-01-07] MEDS ORDERED: CIPROFLOXACIN 400 MG in APPROPRIATE DILUENT 1 EA IV ONE (23:15)
[2019-01-07] MEDS ORDERED: POTASSIUM CHLORIDE 10 MEQ SR TABLET PO ONE (23:15)
[2019-01-07] MEDS ORDERED: CARV12.5 PO (23:29)
[2019-01-08] MEDS ORDERED: KCL 10MEQ/100ML SWI (KRUN) 10 MEQ in APPROPRIATE DILUENT 1 EA IV SCH ×2
[2019-01-08] MEDS ORDERED: POTASSIUM CHLORIDE 10 MEQ SR TABLET PO ONE
[2019-01-08] MEDS ORDERED: GLUCAGON FOR INJ 1 MG VIAL (J1610) SC PRN (00:15)
[2019-01-08] MEDS ORDERED: GLUCOSE 4 GM CHEW TABLET PO PRN (00:15)
[2019-01-08] MEDS ORDERED: DEXTROSE 50% 50 ML SYRINGE IV PRN (00:15)
--- NOTE | 2019-01-08 01:07 | REP ---
Clinical: Cough and nausea . Comparison: 12/28/2018 . Findings: The mediastinum and cardiac silhouette are stable and within normal limits for portable technique. The lung amin demonstrate chronic-appearing interstitial changes without acute consolidation, effusion, or pneumothorax. Skeletal structures are intact. Impression: No acute cardiopulmonary process appreciated. Electronically Signed by Devang Stewart MD 01/08/2019 12:59 A
--- NOTE | 2019-01-08 01:48 | HPEPDOC ---
General Date of Admission January 07, 2019 at 23:51 Chief Complaint The patient is a 68-year-old female admitted with a reason for visit of Acute K idney Injury, Hypokalemia. Source: Patient, RN/, Old records History of Present Illness Ms. Kuo is a 68 years old woman who presented to Er with c/o nausea, vomiting and non-bloody diarrhea for one day. She denies abdominal pain, fever or chills. She was recently admitted from 12/28 to 01/01 and treated for viral diarrhea. CT abd/pelv at that time showed now bowel pathology. Pt states that every time she eats she has to move her bowel. In the ER, CT abd/pelv showed early or mild diverticulitis. K 2.8,. Cr 2.2 (baseline 1.3). GI panel was negative. Pt has no fever or leucocytosis. Abdomen is soft. Home Medications Scheduled Amlodipine Besylate (Amlodipine Besylate) 5 Mg Tab, 5 MG PO DAILY, (Reported) Canagliflozin (Invokana) 100 Mg Tablet, 100 MG PO DAILY, (Reported) Carvedilol (Carvedilol) 12.5 Mg Tablet, 12.5 MG PO BID, (Reported) Furosemide (Furosemide) 40 Mg Tablet, 40 MG PO DAILY, (Reported) Hydrochlorothiazide (Hydrochlorothiazide) 25 Mg Tablet, 50 MG PO DAILY, (Reported) Insulin Glargine,Hum.rec.anlog (Basaglar Kwikpen U-100) 100 Unit/1 Ml Insuln.pen, 50 UNIT SC DAILY, (Reported) Lansoprazole (Lansoprazole) 30 Mg Capsule.dr, 30 MG PO DAILY, (Reported) Losartan Potassium (Losartan Potassium) 100 Mg Tablet, 100 MG PO DAILY, (Reported) Potassium Chloride (Potassium Chloride) 10 Meq Tab.er.prt, 10 MEQ PO BID, (R eported) Pravastatin Sodium (Pravastatin Sodium) 40 Mg Tab, 40 MG PO DAILY, (Reported) Allergies Coded Allergies: Penicillins (Verified Allergy, Intermediate, Rash, 01/07/19) metformin (Verified Allergy, Intermediate, Rash, 01/07/19) pioglitazone (Verified Adverse Reaction, Intermediate, Elevated HR, 01/07/19) Sulfa (Sulfonamide Antibiotics) (Verified Adverse Reaction, Mild, upset stomach, 01/07/19) hydrochlorothiazide (Verified Adverse Reaction, Mild, Nausea, 01/07/19) rofecoxib (Verified Adverse Reaction, Mild, Upset stomach, 01/07/19) triamterene (Verified Adverse Reaction, Mild, Upset stomach, 01/07/19) Past Medical History Medical History Hypertension, IDDM, dyslipidemia, chronic kidney disease stage III, ?CHF Surgical History none reported Family History Significant Family History: No pertinent family hx Social History * Smoker: Denies Alcohol: Denies Drugs: denies A-FIB/CHADSVASC A-FIB History Current/History of A-Fib/PAF?: No Review of Systems Constitutional: Denies: Chills, Fever Eyes: Denies: Pain ENT: Denies: Head Aches Skin: Denies: Rash, Lesions Pulmonary: Denies: Dyspnea, Cough Cardiovascular: Denies: Chest Pain, Palpitations, Edema Gastrointestinal: Reports: Nausea, Vomiting, Diarrhea Musculoskeletal: Denies: Neck Pain, Back Pain Psych: Reports: Mood Normal; Denies: Anxiety Physical Examination General Exam: Positive: Alert, Cooperative, No Acute Distress Eye Exam: Positive: PERRLA ENT Exam: Positive: Atraumatic Neck Exam: Positive: Supple; Negative: JVD Chest Exam: Positive: Clear to auscultation, Normal air movement Heart Exam: Positive: Rate Normal, Regular Rhythm Abdomen Exam: Positive: Normal bowel sounds, Soft; Negative: Tenderness Extremity Exam: Negative: Edema Skin Exam: Negative: Rash, Breakdown Neuro Exam: Positive: Normal Speech, Strength at 5/5 X4 ext Psych Exam: Positive: Mental status NL, Mood NL, Oriented x 3 Vital Signs Vital Signs Date Time Temp Pulse Resp B/P (MAP) Pulse Ox O2 Delivery O2 Flow Rate FiO2 01/08/19 01:25 98.7 81 20 98/57 (71) 97 Room Air Laboratory Data Labs 24H Laboratory Tests 2 01/07/19 20:17: Immature Granulocyte % (Auto) 0.3, White Blood Count 7.9, Red Blood Count 4.78, Hemoglobin 11.0L, Hematocrit 36.2, Mean Corpuscular Volume 75.7L, Mean Corpuscular Hemoglobin 23.0L, Mean Corpuscular Hemoglobin Concent 30.4L, Red Ce ll Distribution Width 17.9H, Platelet Count 238, Neutrophils (%) (Auto) 80.5H, Lymphocytes (%) (Auto) 7.5L, Monocytes (%) (Auto) 11.1H, Eosinophils (%) (Auto) 0.1, Basophils (%) (Auto) 0.5, Neutrophils # (Auto) 6.3, Lymphocytes # (Auto) 0.6L, Monocytes # (Auto) 0.9H, Eosinophils # (Auto) 0.0, Basophils # (Auto) 0.0, Nucleated Red Blood Cells % (auto) 0.0, Anion Gap 9, Glomerular Filtration Rate 23.5L, Lactic Acid Level 0.9, Calcium Level 8.2L, Aspartate Amino Transf (AST/SGOT) 17, Alanine Aminotransferase (ALT/SGPT) 13, Alkaline Phosphatase 89, Total Bilirubin 0.9, Direct Bilirubin 0.2, Total Creatine Kinase 33, Creatine Kinase MB 1.0, Creatine Kinase MB Relative Index 3.33, Troponin I < 0.02, Total Protein 6.4, Albumin 3.3, Albumin/Globulin Ratio 1.06, Lipase 107 01/07/19 21:52: Urine Color STRAW, Urine Appearance CLEAR, Urine pH 5.0, Urine Specific [place] 1.010, Urine Protein NEGATIVE, Urine Glucose (UA) 2+H, Urine Ketones NEGATIVE, Urine Blood NEGATIVE, Urine Nitrite NEGATIVE, Urine Bilirubin NEGATIVE, Urine Urobilinogen 0.2, Urine Leukocyte Esterase TRACEH, Urine WBC (Auto) 4H, Urine RBC (Auto) 0, Urine Hyaline Casts (Auto) 1, Urine Bacteria (Auto) NEGATIVE, Urine Squamous Epithelial Cells 6, Urine Sperm (Auto) CBC/BMP Laboratory Tests 01/07/19 20:17 Red Blood Count 4.78, Mean Corpuscular Volume 75.7 L, Mean Corpuscular Hemoglobin 23.0 L, Mean Corpuscular Hemoglobin Concent 30.4 L, Red Cell Distribution Width 17.9 H, Neutrophils (%) (Auto) 80.5 H, Lymphocytes (%) (Auto) 7.5 L, Monocytes (%) (Auto) 11.1 H, Eosinophils (%) (Auto) 0.1, Basophils (%) (Auto) 0.5, Neutrophils # (Auto) 6.3, Lymphocytes # (Auto) 0.6 L, Monocytes # ( Auto) 0.9 H, Eosinophils # (Auto) 0.0, Basophils # (Auto) 0.0 Microbiology Microbiology 01/07/19 Gastrointestinal Tract Panel (PCR) - Final, Complete 01/07/19 Urine Culture, Received Pending Assessment/Plan Nausea, Vomiting, Diarrhea, Hypokalemia and Acute on CKD 3 - Mild colitis will not need antibiotic; nausea and vomiting is not explained by colitis. - Non-infectious gastroenteritis is very likely; other DD: IBS - Clear liquid Diet - Supplement K and fluid IV; monitor renal fx and electrolytes - Consider Colonoscopy at some point - SSI for DM Plan / VTE VTE Prophylaxis Ordered?: Yes Plan Anticipated Discharge: Home LEO NYE MD January 08, 2019 01:48
[2019-01-08 03:00] VITALS: BP 118/67
[2019-01-08] MEDS: KCL 10MEQ/100ML SWI (KRUN) 10 MEQ in APPROPRIATE DILUENT 1 EA IV SCH ×5 (03:33→08:32)
[2019-01-08 06:00] VITALS: BP 109/59
[2019-01-08 06:23] LABS: HEMATOCRIT 34.4 % (36.0-47.0); HEMOGLOBIN 10.2 g/dl (12.0-15.5); MEAN CORPUSCULAR HGB CONC 29.7 g/dl (32.0-36.5); MEAN CORPUSCULAR VOLUME 77.7 fl (80.0-96.0); PLATELET COUNT, AUTOMATED 231 10^3/uL (150-450); RED BLOOD COUNT 4.43 10^6/uL (4.00-5.40); WHITE BLOOD COUNT 6.3 10^3/uL (4.0-10.0)
[2019-01-08] MEDS: HumaLOG INSULIN (NovoLOG) PER UNIT SC SCH ×5 (06:53→23:53)
[2019-01-08 07:02] LABS: ALBUMIN 2.9 GM/DL (3.2-5.2); BILIRUBIN,TOTAL 0.8 MG/DL (0.2-1.0); CALCIUM LEVEL 8.2 MG/DL (8.8-10.2); CREATININE FOR GFR 1.85 MG/DL (0.55-1.30); GLOMERULAR FILTRATION RATE 28.9 (>45); MAGNESIUM LEVEL 1.4 MG/DL (1.8-2.4); POTASSIUM SERUM 2.9 MEQ/L (3.5-5.1); TOTAL PROTEIN 6.2 GM/DL (6.4-8.2)
[2019-01-08] MEDS: PANTOPRAZOLE 40MG INJ (PROTONIX) (C9113) IV SCH (08:33)
[2019-01-08] MEDS: HEPARIN SOD (PORCINE) 5000 UNITS/ML VIAL SC SCH ×2 (08:33→20:40)
[2019-01-08] MEDS: amLODIPine 5 MG TAB PO SCH (08:34)
[2019-01-08] MEDS: PRAVASTATIN 20 MG TAB PO SCH (08:34)
[2019-01-08] MEDS: CARVedilol 12.5 MG TAB PO SCH ×2 (08:34→20:40)
[2019-01-08] MEDS: KCL 40MEQ in NS 1000ML 1,000 ML IV SCH ×2 (09:47→23:54)
--- NOTE | 2019-01-08 11:51 | IPNPDOC ---
Subjective Date Seen The patient was seen on 01/08/19. Subjective Chief Complaint/HPI Patient sitting comfortably as I entered the room. She reports to be frustrated over her chronic diarrhea. Constitutional: Denies: Chills, Fever Pulmonary: Denies: Dyspnea, Cough, Pleuritic Chest Pain Cardiovascular: Denies: Chest Pain, Palpitations, Orthopnea, Edema Gastrointestinal: Reports: Abdominal Pain (cramping with diarrhea only ), Diarrhea; Denies: Nausea, Vomiting, Melena, Hematochezia Genitourinary: Denies: Dysuria Psych: Reports: Mood Normal Objective Physical Examination General Exam: Positive: Alert, Cooperative, No Acute Distress Eye Exam: Positive: PERRLA ENT Exam: Positive: Atraumatic Neck Exam: Positive: Supple; Negative: JVD Chest Exam: Positive: Clear to auscultation, Normal air movement Heart Exam: Positive: Rate Normal, Regular Rhythm Abdomen Exam: Positive: Normal bowel sounds, Soft; Negative: Tenderness Extremity Exam: Negative: Edema Skin Exam: Negative: Rash, Breakdown Neuro Exam: Positive: Normal Speech, Strength at 5/5 X4 ext Psych Exam: Positive: Mental status NL, Mood NL, Oriented x 3 A-FIB/CHADSVASC A-FIB History Current/History of A-Fib/PAF?: No Assessment /Plan Problems (1) Acute kidney injury Status: Acute Response to Treatment: Stable Problem Text: 01/08/19: Secondary to dehydration. Cre 1.85, GFR 28.9, improved from Cre 2.21 upon admission. Patient with CKD baseline ~1.7-1.9. She is receiving hydration with KCL. (2) Hypokalemia Status: Acute Problem Text: 01/08/19: She received 5 runs of K+ this morning and was started on NS with KCL at 70/hr. Repeat K+ scheduled for 12pm. (3) Diarrhea Status: Acute Problem Text: 01/08/19: Patient was admitted back December 28 for same issue. GI panel was negative. Celiac panel pending. We will start cholestyramine today. (4) Hypertension Status: Chronic Response to Treatment: Stable Problem Text: 01/08/19: Pressures stable on Coreg and Norvasc. Losartan, HCTZ and Lasix are on hold (5) DM2 (diabetes mellitus, type 2) Status: Chronic Response to Treatment: Stable Problem Text: 01/08/19: Sliding scale coverage (6) CHF (congestive heart failure) Status: Chronic Response to Treatment: Stable Problem Text: 01/08/19: Lasix on hold. Patient appears well compensated. We will need to monitor her IVF to avoid volume overload (7) CKD (chronic kidney disease) stage 3, GFR 30-59 ml/min Status: Chronic Problem Text: 01/08/19: Patient with CKD baseline cre ~1.7-1.9 Plan/VTE VTE Prophylaxis Ordered?: Yes (Heparin ) Plan Anticipated Discharge: Home Family Medicine Attending Note: I saw and examined Ms. Ayoub, discussed with Mili Lainez DNP. Agree with her note as documented. I agree with the impression that this is a noninfectious chronic diarrhea. We started her on cholestyramine and are further evaluating some of the possible etiologies. I have ordered further stool studies to help characterize her chronic diarrhea. She is hungry and requests we advance her diet. I've advanced her to full liquids with the nursing order to advance as tolerated. We'll monitor. VS, I&O, 24H, Fishbone Vital Signs/I&O Vital Signs Date Time Temp Pulse Resp B/P (MAP) Pulse Ox O2 Delivery O2 Flow Rate FiO2 01/08/19 08:34 84 119/77 01/08/19 06:00 98.5 18 93 01/08/19 01:25 Room Air I&O- Last 24 Hours up to 6 AM 01/08/19 06:00 Intake Total 2300 ml Output Total 375 ml Balance 1925 ml Laboratory Data 24H LABS Laboratory Tests 2 01/07/19 20:17: Immature Granulocyte % (Auto) 0.3, White Blood Count 7.9, Red Blood Count 4.78, Hemoglobin 11.0L, Hematocrit 36.2, Mean Corpuscular Volume 75.7L, Mean Corpuscular Hemoglobin 23.0L, Mean Corpuscular Hemoglobin Concent 30.4L, Red Cell Distribution Width 17.9H, Platelet Count 238, Neutrophils (%) (Auto) 80.5H, Lymphocytes (%) (Auto) 7.5L, Monocytes (%) (Auto) 11.1H, Eosinophils (%) (Auto) 0.1, Basophils (%) (Auto) 0.5, Neutrophils # (Auto) 6.3, Lymphocytes # (Auto) 0.6L, Monocytes # (Auto) 0.9H, Eosinophils # (Auto) 0.0, Basophils # (Auto) 0.0, Nucleated Red Blood Cells % (auto) 0.0, Anion Gap 9, Glomerular Filtration Rate 23.5L, Lactic Acid Level 0.9, Calcium Level 8.2L, Aspartate Amino Transf (AST/SGOT) 17, Alanine Aminotransferase (ALT/SGPT) 13, Alkaline Phosphatase 89, Total Bilirubin 0.9, Direct Bilirubin 0.2, Total Creatine Kinase 33, Creatine Kinase MB 1.0, Creatine Kinase MB Relative Index 3.33, Troponin I < 0.02, Total Protein 6.4, Albumin 3.3, Albumin/Globulin Ratio 1.06, Lipase 107 01/07/19 21:52: Urine Color STRAW, Urine Appearance CLEAR, Urine pH 5.0, Urine Specific [place] 1.010, Urine Protein NEGATIVE, Urine Glucose (UA) 2+H, Urine Ketones NEGATIVE, Urine Blood NEGATIVE, Urine Nitrite NEGATIVE, Urine Bilirubin NEGATIVE, Urine Urobilinogen 0.2, Urine Leukocyte Esterase TRACEH, Urine WBC (Auto) 4H, Urine RBC (Auto) 0, Urine Hyaline Casts (Auto) 1, Urine Bacteria (Auto) NEGATIVE, Urine Squamous Epithelial Cells 6, Urine Sperm (Auto) 01/08/19 02:40: Bedside Glucose (Misc Panel) 125H 01/08/19 05:56: Nucleated Red Blood Cells % (auto) 0.0, Anion Gap 9, Glomerular Filtration Rate 28.9L, Calcium Level 8.2L, Aspartate Amino Transf (AST/SGOT) 12, Alanine Aminotransferase (ALT/SGPT) 17, Alkaline Phosphatase 78, Total Bilirubin 0.8, Total Protein 6.2L, Albumin 2.9L, Albumin/Globulin Ratio 0.88L, Blood Urea Nitrogen 27H, Creatinine 1.85H, Sodium Level 139, Potassium Level 2.9*L, Chloride Level 106, Carbon Dioxide Level 24, Magnesium Level 1.4L 01/08/19 06:40: Bedside Glucose (Misc Panel) 127H CBC/BMP Laboratory Tests 01/07/19 20:17 Red Blood Count 4.78, Mean Corpuscular Volume 75.7 L, Mean Corpuscular Hemoglobin 23.0 L, Mean Corpuscular Hemoglobin Concent 30.4 L, Red Cell Distribution Width 17.9 H, Neutrophils (%) (Auto) 80.5 H, Lymphocytes (%) (Auto) 7.5 L, Monocytes (%) (Auto) 11.1 H, Eosinophils (%) (Auto) 0.1, Basophils (%) (Auto) 0.5, Neutrophils # (Auto) 6.3, Lymphocytes # (Auto) 0.6 L, Monocytes # (Auto) 0.9 H, Eosinophils # (Auto) 0.0, Basophils # (Auto) 0.0 01/08/19 05:56 Red Blood Count 4.43, Mean Corpuscular Volume 77.7 L, Mean Corpuscular Hemoglobin 23.0 L, Mean Corpuscular Hemoglobin Concent 29.7 L, Red Cell Distribution Width 17.7 H, Calcium Level 8.2 L, Aspartate Amino Transf (AST/SGOT) 12, Alanine Aminotransferase (ALT/SGPT) 17, Alkaline Phosphatase 78, Total Bilirubin 0.8, Total Protein 6.2 L, Albumin 2.9 L Microbiology Microbiology 01/07/19 Gastrointestinal Tract Panel (PCR) - Final, Complete 01/07/19 Urine Culture, Received Pending MILI LAINEZ January 08, 2019 11:51 am Ayaz Rivers MD January 08, 2019 10:01 pm
[2019-01-08] MEDS: ONDANSETRON 4MG/2ML VIAL (J2405) IV PRN (12:37)
[2019-01-08] MEDS: CHOLESTYRAMINE 4 GM PWD PKT PO SCH ×2 (12:38→20:39)
[2019-01-08 14:00] VITALS: BP 124/59
[2019-01-08] MEDS: NYSTATIN 100,000 UNITS/GM TOPICAL PWD 15 GM TOP SCH ×2 (15:16→20:40)
[2019-01-08 22:00] VITALS: BP 115/56
[2019-01-09 06:00] VITALS: BP 112/56
[2019-01-09] MEDS: HumaLOG INSULIN (NovoLOG) PER UNIT SC SCH ×4 (06:00→23:57)
[2019-01-09 06:35] LABS: BASO # 0.1 10^3/uL (0.0-0.2); BASO % 0.7 % (0.0-1.0); EOS % 13.6 % (0.0-3.0); HEMATOCRIT 33.3 % (36.0-47.0); HEMOGLOBIN 9.8 g/dl (12.0-15.5); LYMPH # 0.7 10^3/uL (1.5-4.5); LYMPH % 9.1 % (24.0-44.0); MEAN CORPUSCULAR HEMOGLOBIN 23.5 pg (27.0-33.0); MEAN CORPUSCULAR HGB CONC 29.4 g/dl (32.0-36.5); MEAN CORPUSCULAR VOLUME 79.9 fl (80.0-96.0); MONO # 0.6 10^3/uL (0.0-0.8); MONO % 8.6 % (0.0-5.0); NEUTROPHILS # 4.9 10^3/uL (1.8-7.7); NEUTROPHILS % 67.7 % (36.0-66.0); PLATELET COUNT, AUTOMATED 217 10^3/uL (150-450); RED BLOOD COUNT 4.17 10^6/uL (4.00-5.40); WHITE BLOOD COUNT 7.3 10^3/uL (4.0-10.0)
[2019-01-09 06:55] LABS: ALBUMIN 2.7 GM/DL (3.2-5.2); BILIRUBIN,TOTAL 0.6 MG/DL (0.2-1.0); CALCIUM LEVEL 8.2 MG/DL (8.8-10.2); CREATININE FOR GFR 1.33 MG/DL (0.55-1.30); GLOMERULAR FILTRATION RATE 42.2 (>45); POTASSIUM SERUM 3.3 MEQ/L (3.5-5.1); TOTAL PROTEIN 5.7 GM/DL (6.4-8.2)
[2019-01-09] MEDS ORDERED: POTASSIUM CHLORIDE 10 MEQ SR TABLET PO ONE (08:00)
[2019-01-09] MEDS: CHOLESTYRAMINE 4 GM PWD PKT PO SCH ×2 (08:24→20:14)
[2019-01-09] MEDS: PANTOPRAZOLE 40MG INJ (PROTONIX) (C9113) IV SCH (08:24)
[2019-01-09] MEDS: PRAVASTATIN 20 MG TAB PO SCH (08:24)
[2019-01-09] MEDS: NYSTATIN 100,000 UNITS/GM TOPICAL PWD 15 GM TOP SCH ×2 (08:25→20:11)
[2019-01-09] MEDS: HEPARIN SOD (PORCINE) 5000 UNITS/ML VIAL SC SCH ×2 (08:25→20:11)
[2019-01-09] MEDS: amLODIPine 5 MG TAB PO SCH (08:27)
[2019-01-09] MEDS: CARVedilol 12.5 MG TAB PO SCH ×2 (08:28→20:17)
--- NOTE | 2019-01-09 08:31 | IPNPDOC ---
Subjective Date Seen The patient was seen on 01/09/19. Subjective Chief Complaint/HPI Patient reports to be feeling a little better. She states her stools are slowly improving. No new concerns. Constitutional: Denies: Chills, Fever Pulmonary: Denies: Dyspnea, Cough Cardiovascular: Denies: Chest Pain, Palpitations, Edema Gastrointestinal: Reports: Diarrhea; Denies: Nausea, Vomiting, Abdominal Pain, Melena, Hematochezia Psych: Reports: Mood Normal Objective Physical Examination General Exam: Positive: Alert, Cooperative, No Acute Distress Eye Exam: Positive: PERRLA ENT Exam: Positive: Atraumatic Neck Exam: Positive: Supple; Negative: JVD Chest Exam: Positive: Clear to auscultation, Normal air movement Heart Exam: Positive: Rate Normal, Regular Rhythm Abdomen Exam: Positive: Normal bowel sounds, Soft; Negative: Tenderness Extremity Exam: Negative: Edema Skin Exam: Negative: Rash, Breakdown Neuro Exam: Positive: Normal Speech, Strength at 5/5 X4 ext Psych Exam: Positive: Mental status NL, Mood NL, Oriented x 3 A-FIB/CHADSVASC A-FIB History Current/History of A-Fib/PAF?: No Assessment /Plan Problems (1) Acute kidney injury Status: Acute Response to Treatment: Stable Problem Text: 01/09/19: Renal function much improved, Cre 1.33, GFR 42. Patient has advanced her diet and her stools are slowly improving. Once she has adequate oral intake we will need to d/c her IVF 01/08/19: Secondary to dehydration. Cre 1.85, GFR 28.9, improved from Cre 2.21 upon admission. Patient with CKD baseline ~1.7-1.9. She is receiving hydration with KCL. (2) Hypokalemia Status: Acute Problem Text: 01/09/19: K+ 3.3 this morning. She continues with NS/KCL IVF. She was given K+ 20 meq x 1 this morning. We will repeat her K+ this afternoon. 01/08/19: She received 5 runs of K+ this morning and was started on NS with KCL at 70/hr. Repeat K+ scheduled for 12pm. (3) Diarrhea Status: Acute Problem Text: 01/09/19: She was started on Cholestyramine yesterday. Additional stool studies pending. We will continue to monitor 01/08/19: Patient was admitted back December 28 for same issue. GI panel was negative. Celiac panel pending. We will start cholestyramine today. (4) CHF (congestive heart failure) Status: Acute Response to Treatment: Stable Problem Text: 01/09/19: Patient appears well compensated today. We will monitor her IVF closely. Once her oral intake is adequate we will need to d/c her IVF 01/08/19: Lasix on hold. Patient appears well compensated. We will need to monitor her IVF to avoid volume overload (5) Hypertension Status: Chronic Response to Treatment: Stable Problem Text: 01/08/19: Pressures stable on Coreg and Norvasc. Losartan, HCTZ and Lasix are on hold (6) DM2 (diabetes mellitus, type 2) Status: Chronic Response to Treatment: Stable Problem Text: 01/08/19: Sliding scale coverage (7) CKD (chronic kidney disease) stage 3, GFR 30-59 ml/min Status: Chronic Problem Text: 01/08/19: Patient with CKD baseline cre ~1.7-1.9 Plan/VTE VTE Prophylaxis Ordered?: Yes (Heparin ) Plan Anticipated Discharge: Home Family Medicine Attending Note: I saw and examined Ms. Ayoub, discussed with Mili Lainez DNP. Agree with her note as documented. Her diarrhea is improving with the cholestyramine. Much of the workup for chronic diarrhea remains pending. 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, I&O, 24H, Fishbone Vital Signs/I&O Vital Signs Date Time Temp Pulse Resp B/P (MAP) Pulse Ox O2 Delivery O2 Flow Rate FiO2 01/09/19 06:00 97.3 75 18 112/56 (74) 91 01/08/19 01:25 Room Air I&O- Last 24 Hours up to 6 AM 01/09/19 06:00 Intake Total 3020 ml Output Total 0 ml Balance 3020 ml Laboratory Data 24H LABS Laboratory Tests 2 01/08/19 11:38: Bedside Glucose (Misc Panel) 136H 01/08/19 17:48: Bedside Glucose (Misc Panel) 77L 01/08/19 23:44: Bedside Glucose (Misc Panel) 226H 01/09/19 05:55: Immature Granulocyte % (Auto) 0.3, White Blood Count 7.3, Red Blood Count 4.17, Hemoglobin 9.8L, Hematocrit 33.3L, Mean Corpuscular Volume 79.9L, Mean Corpuscular Hemoglobin 23.5L, Mean Corpuscular Hemoglobin Concent 29.4L, Red Cell Distribution Width 17.9H, Platelet Count 217, Neutrophils (%) (Auto) 67.7H, Lymphocytes (%) (Auto) 9.1L, Monocytes (%) (Auto) 8.6H, Eosinophils (%) (Auto) 13.6H, Basophils (%) (Auto) 0.7, Neutrophils # (Auto) 4.9, Lymphocytes # (Auto) 0.7L, Monocytes # (Auto) 0.6, Eosinophils # (Auto) 1.0H, Basophils # (Auto) 0.1, Nucleated Red Blood Cells % (auto) 0.0, Anion Gap 8, Glomerular Filtration Rate 42.2L, Blood Urea Nitrogen 16, Creatinine 1.33H, Sodium Level 142, Potassium Level 3.3L, Chloride Level 115H, Carbon Dioxide Level 19L, Calcium Level 8.2L, Aspartate Amino Transf (AST/SGOT) 13, Alanine Aminotransferase (ALT/SGPT) 13, Alkaline Phosphatase 76, Total Bilirubin 0.6, Total Protein 5.7L, Albumin 2.7L, Albumin/Globulin Ratio 0.90L 01/09/19 06:10: Bedside Glucose (Misc Panel) 82 CBC/BMP Laboratory Tests 01/08/19 11:59 01/09/19 05:55 Red Blood Count 4.17, Mean Corpuscular Volume 79.9 L, Mean Corpuscular Hemoglobin 23.5 L, Mean Corpuscular Hemoglobin Concent 29.4 L, Red Cell Distribution Width 17.9 H, Neutrophils (%) (Auto) 67.7 H, Lymphocytes (%) (Auto) 9.1 L, Monocytes (%) (Auto) 8.6 H, Eosinophils (%) (Auto) 13.6 H, Basophils (%) (Auto) 0.7, Neutrophils # (Auto) 4.9, Lymphocytes # (Auto) 0.7 L, Monocytes # (Auto) 0.6, Eosinophils # (Auto) 1.0 H, Basophils # (Auto) 0.1, Calcium Level 8.2 L, Aspartate Amino Transf (AST/SGOT) 13, Alanine Aminotransferase (ALT/SGPT) 13, Alkaline Phosphatase 76, Total Bilirubin 0.6, Total Protein 5.7 L, Albumin 2.7 L Microbiology Microbiology 01/07/19 Gastrointestinal Tract Panel (PCR) - Final, Complete 01/07/19 Urine Culture - Final, Complete MILI LAINEZ January 09, 2019 08:31 Ayaz Rivers MD January 11, 2019 23:35
[2019-01-09] MEDS: KCL 40MEQ in NS 1000ML 1,000 ML IV SCH ×2 (12:16→23:54)
[2019-01-09 14:00] VITALS: BP 137/74
[2019-01-09 22:00] VITALS: BP 140/73
[2019-01-09] MEDS: ONDANSETRON 4MG/2ML VIAL (J2405) IV PRN (22:33)
[2019-01-09] MEDS ORDERED: PROMETHAZINE 25 MG TAB PO PRN (23:45)
[2019-01-09] MEDS: ACETAMINOPHEN TAB 650MG DOSE (2X325MG) PO PRN (23:54)
[2019-01-10 00:07] LABS: ENDOMYSIAL ABY IgA Negative (Negative); TISSUE TRANSGLUTAMINASE IgG <2 U/mL (0-5); UNITSIGA FOR GLIADIN IGA 2 units (0-19); UNITSIGG FOR GLIADIN IGG 3 units (0-19)
[2019-01-10 05:59] LABS: BASO # 0.1 10^3/uL (0.0-0.2); BASO % 0.5 % (0.0-1.0); EOS # 1.4 10^3/uL (0.0-0.50); EOS % 14.9 % (0.0-3.0); HEMATOCRIT 33.2 % (36.0-47.0); HEMOGLOBIN 9.5 g/dl (12.0-15.5); LYMPH % 11.3 % (24.0-44.0); MEAN CORPUSCULAR HEMOGLOBIN 22.8 pg (27.0-33.0); MEAN CORPUSCULAR HGB CONC 28.6 g/dl (32.0-36.5); MEAN CORPUSCULAR VOLUME 79.6 fl (80.0-96.0); MONO # 0.7 10^3/uL (0.0-0.8); MONO % 7.5 % (0.0-5.0); PLATELET COUNT, AUTOMATED 274 10^3/uL (150-450); RED BLOOD COUNT 4.17 10^6/uL (4.00-5.40); WHITE BLOOD COUNT 9.2 10^3/uL (4.0-10.0)
[2019-01-10 06:00] VITALS: BP 108/56
[2019-01-10 06:22] LABS: ALBUMIN 2.9 GM/DL (3.2-5.2); BILIRUBIN,TOTAL 0.7 MG/DL (0.2-1.0); CALCIUM LEVEL 8.1 MG/DL (8.8-10.2); CREATININE FOR GFR 1.37 MG/DL (0.55-1.30); GLOMERULAR FILTRATION RATE 40.8 (>45); POTASSIUM SERUM 4.6 MEQ/L (3.5-5.1)
[2019-01-10] MEDS: HumaLOG INSULIN (NovoLOG) PER UNIT SC SCH ×4 (06:31→21:00)
[2019-01-10 09:15] VITALS: BP 100/58
[2019-01-10] MEDS: HEPARIN SOD (PORCINE) 5000 UNITS/ML VIAL SC SCH ×2 (09:26→19:47)
[2019-01-10] MEDS: amLODIPine 5 MG TAB PO SCH (10:17)
[2019-01-10] MEDS: CARVedilol 12.5 MG TAB PO SCH ×2 (10:18→19:47)
[2019-01-10] MEDS: CHOLESTYRAMINE 4 GM PWD PKT PO SCH ×2 (10:19→19:47)
[2019-01-10] MEDS: PRAVASTATIN 20 MG TAB PO SCH (10:19)
[2019-01-10] MEDS: ACETAMINOPHEN TAB 650MG DOSE (2X325MG) PO PRN (10:21)
[2019-01-10] MEDS: NYSTATIN 100,000 UNITS/GM TOPICAL PWD 15 GM TOP SCH ×2 (10:22→19:48)
[2019-01-10] MEDS: PANTOPRAZOLE 40MG INJ (PROTONIX) (C9113) IV SCH (11:12)
[2019-01-10] MEDS ORDERED: HumaLOG INSULIN (NovoLOG) PER UNIT SC SCH (12:00)
--- NOTE | 2019-01-10 12:04 | REP ---
REASON: Dyspnea. Latest prior for comparison 01/07/2019, a portable exam. Since the last examination, bibasilar opacities have developed with bilateral cardiophrenic angle and costophrenic angle blunting. The interstitial markings are diffusely increased. There is cardiomegaly partially obscured by the afore mentioned opacities. There is no change in the osseous structures. IMPRESSION: Bilateral lower lobe opacities consistent with atelectasis/pneumonia with evidence of bilateral pleural effusions. Electronically Signed by Chang Bravo DO 01/10/2019 12:13 P
[2019-01-10 14:00] VITALS: BP 111/55
[2019-01-10] MEDS: FUROSEMIDE 40 MG TAB PO SCH (15:11)
--- NOTE | 2019-01-10 17:11 | IPNPDOC ---
Subjective Date Seen The patient was seen on 01/10/19. Subjective Chief Complaint/HPI Nursing reports that she was started on oxygen overnight. She complains of discomfort from her hiatal hernia. IV fluids stopped. Constitutional: Denies: Chills, Fever Pulmonary: Reports: Dyspnea; Denies: Cough Cardiovascular: Denies: Chest Pain Gastrointestinal: Reports: Diarrhea; Denies: Nausea, Vomiting Psych: Reports: Mood Normal Objective Physical Examination General Exam: Positive: Alert, Cooperative, No Acute Distress (comfortable on oxygen) Eye Exam: Positive: PERRLA ENT Exam: Positive: Atraumatic Neck Exam: Positive: Supple; Negative: JVD Chest Exam: Positive: Clear to auscultation, Normal air movement Heart Exam: Positive: Rate Normal, Regular Rhythm Abdomen Exam: Positive: Normal bowel sounds, Soft; Negative: Tenderness Extremity Exam: Negative: Edema Skin Exam: Negative: Rash, Breakdown Neuro Exam: Positive: Normal Speech, Strength at 5/5 X4 ext Psych Exam: Positive: Mental status NL, Mood NL, Oriented x 3 A-FIB/CHADSVASC A-FIB History Current/History of A-Fib/PAF?: No Assessment /Plan Problems (1) Diarrhea Status: Acute Problem Text: 01/09/19: She was started on Cholestyramine yesterday. Additional stool studies pending. We will continue to monitor 01/08/19: Patient was admitted back December 28 for same issue. GI panel was negative. Celiac panel pending. We will start cholestyramine today. (2) CHF (congestive heart failure) Status: Acute Response to Treatment: Stable Problem Text: 01/10: Decompensated, requiring oxygen. New pleural effusions on CXR. IVFs stopped and given PO Lasix. Daily weights are not currently accurate (quite different values with different scales) but I&Os consistent with fluid overload. 01/09/19: Patient appears well compensated today. We will monitor her IVF closely. Once her oral intake is adequate we will need to d/c her IVF 01/08/19: Lasix on hold. Patient appears well compensated. We will need to monitor her IVF to avoid volume overload (3) Acute kidney injury Status: Acute Response to Treatment: Stable Problem Text: 01/10: Creatinine similar to yesterday and similar to recent hospital discharge. IVFs stopped today. 01/09/19: Renal function much improved, Cre 1.33, GFR 42. Patient has advanced her diet and her stools are slowly improving. Once she has adequate oral intake we will need to d/c her IVF 01/08/19: Secondary to dehydration. Cre 1.85, GFR 28.9, improved from Cre 2.21 upon admission. Patient with CKD baseline ~1.7-1.9. She is receiving hydration with KCL. (4) Hypokalemia Status: Acute Problem Text: 01/10: Normal potassium this a.m., though I gave her some Lasix this afternoon. 01/09/19: K+ 3.3 this morning. She continues with NS/KCL IVF. She was given K+ 20 meq x 1 this morning. We will repeat her K+ this afternoon. 01/08/19: She received 5 runs of K+ this morning and was started on NS with KCL at 70/hr. Repeat K+ scheduled for 12pm. (5) Hypertension Status: Chronic Response to Treatment: Stable Problem Text: 01/08/19: Pressures stable on Coreg and Norvasc. Losartan, HCTZ and Lasix are on hold (6) DM2 (diabetes mellitus, type 2) Status: Chronic Response to Treatment: Stable Problem Text: 01/08/19: Sliding scale coverage (7) CKD (chronic kidney disease) stage 3, GFR 30-59 ml/min Status: Chronic Problem Text: 01/08/19: Patient with CKD baseline cre ~1.7-1.9 Plan/VTE VTE Prophylaxis Ordered?: Yes (Heparin ) Plan Anticipated Discharge: Home VS, I&O, 24H, Fishbone Vital Signs/I&O Vital Signs Date Time Temp Pulse Resp B/P (MAP) Pulse Ox O2 Delivery O2 Flow Rate FiO2 01/10/19 14:00 97.1 82 18 111/55 (73) 93 3.0 01/08/19 01:25 Room Air I&O- Last 24 Hours up to 6 AM 01/10/19 06:00 Intake Total 2840 ml Output Total 300 ml Balance 2540 ml Laboratory Data 24H LABS Laboratory Tests 2 01/09/19 23:54: Bedside Glucose (Misc Panel) 181H 01/10/19 05:31: Immature Granulocyte % (Auto) 0.8, White Blood Count 9.2, Red Blood Count 4.17, Hemoglobin 9.5L, Hematocrit 33.2L, Mean Corpuscular Volume 79.6L, Mean Corpuscular Hemoglobin 22.8L, Mean Corpuscular Hemoglobin Concent 28.6L, Red Cell Distribution Width 18.1H, Platelet Count 274, Neutrophils (%) (Auto) 65.0, Lymphocytes (%) (Auto) 11.3L, Monocytes (%) (Auto) 7.5H, Eosinophils (%) (Auto) 14.9H, Basophils (%) (Auto) 0.5, Neutrophils # (Auto) 6.0, Lymphocytes # (Auto) 1.0L, Monocytes # (Auto) 0.7, Eosinophils # (Auto) 1.4H, Basophils # (Auto) 0.1, Nucleated Red Blood Cells % (auto) 0.0, Anion Gap 4L, Glomerular Filtration Rate 40.8L, Blood Urea Nitrogen 13, Creatinine 1.37H, Sodium Level 140, Potassium Level 4.6, Chloride Level 118H, Carbon Dioxide Level 18L, Calcium Level 8.1L, Aspartate Amino Transf (AST/SGOT) 13, Alanine Aminotransferase (ALT/SGPT) 14, Alkaline Phosphatase 83, Total Bilirubin 0.7, Total Protein 6.0L, Albumin 2.9L, Albumin/Globulin Ratio 0.94L 01/10/19 11:45: Bedside Glucose (Misc Panel) 250H 01/10/19 16:53: Bedside Glucose (Misc Panel) 184H CBC/BMP Laboratory Tests 01/10/19 05:31 Red Blood Count 4.17, Mean Corpuscular Volume 79.6 L, Mean Corpuscular Hemoglobin 22.8 L, Mean Corpuscular Hemoglobin Concent 28.6 L, Red Cell Distribution Width 18.1 H, Neutrophils (%) (Auto) 65.0, Lymphocytes (%) (Auto) 11.3 L, Monocytes (%) (Auto) 7.5 H, Eosinophils (%) (Auto) 14.9 H, Basophils (%) (Auto) 0.5, Neutrophils # (Auto) 6.0, Lymphocytes # (Auto) 1.0 L, Monocytes # (Auto) 0.7, Eosinophils # (Auto) 1.4 H, Basophils # (Auto) 0.1, Calcium Level 8.1 L, Aspartate Amino Transf (AST/SGOT) 13, Alanine Aminotransferase (ALT/SGPT) 14, Alkaline Phosphatase 83, Total Bilirubin 0.7, Total Protein 6.0 L, Albumin 2.9 L Microbiology Microbiology 01/09/19 Stool Occult Blood (BRIANNA) - Final, Complete 01/09/19 Stool Lactoferrin - Final, Complete 01/07/19 Gastrointestinal Tract Panel (PCR) - Final, Complete 01/07/19 Urine Culture - Final, Complete CARYL MARTINEZ DO January 10, 2019 17:11
[2019-01-10 21:31] VITALS: O2SAT 98
[2019-01-10 22:00] VITALS: BP 135/79
[2019-01-11 06:00] VITALS: BP 114/57
[2019-01-11 06:05] LABS: BASO # 0.1 10^3/uL (0.0-0.2); BASO % 0.7 % (0.0-1.0); EOS # 0.7 10^3/uL (0.0-0.50); EOS % 9.9 % (0.0-3.0); HEMATOCRIT 32.3 % (36.0-47.0); HEMOGLOBIN 9.3 g/dl (12.0-15.5); LYMPH # 0.9 10^3/uL (1.5-4.5); LYMPH % 11.7 % (24.0-44.0); MEAN CORPUSCULAR HEMOGLOBIN 22.9 pg (27.0-33.0); MEAN CORPUSCULAR HGB CONC 28.8 g/dl (32.0-36.5); MEAN CORPUSCULAR VOLUME 79.4 fl (80.0-96.0); MONO # 0.6 10^3/uL (0.0-0.8); NEUTROPHILS # 4.9 10^3/uL (1.8-7.7); PLATELET COUNT, AUTOMATED 292 10^3/uL (150-450); RED BLOOD COUNT 4.07 10^6/uL (4.00-5.40); WHITE BLOOD COUNT 7.2 10^3/uL (4.0-10.0)
[2019-01-11 06:19] LABS: ALBUMIN 2.6 GM/DL (3.2-5.2); BILIRUBIN,TOTAL 0.9 MG/DL (0.2-1.0); CALCIUM LEVEL 8.4 MG/DL (8.8-10.2); CREATININE FOR GFR 1.4 MG/DL (0.55-1.30); GLOMERULAR FILTRATION RATE 39.8 (>45); POTASSIUM SERUM 4.1 MEQ/L (3.5-5.1); TOTAL PROTEIN 5.7 GM/DL (6.4-8.2)
[2019-01-11] MEDS: CHOLESTYRAMINE 4 GM PWD PKT PO SCH ×2 (08:14→21:21)
[2019-01-11] MEDS: PANTOPRAZOLE 40MG INJ (PROTONIX) (C9113) IV SCH (08:14)
[2019-01-11] MEDS: NYSTATIN 100,000 UNITS/GM TOPICAL PWD 15 GM TOP SCH ×2 (08:14→21:23)
[2019-01-11] MEDS: HEPARIN SOD (PORCINE) 5000 UNITS/ML VIAL SC SCH ×2 (08:14→21:22)
[2019-01-11] MEDS: amLODIPine 5 MG TAB PO SCH (08:15)
[2019-01-11] MEDS: PRAVASTATIN 20 MG TAB PO SCH (08:15)
[2019-01-11] MEDS: ACETAMINOPHEN TAB 650MG DOSE (2X325MG) PO PRN ×2 (08:15→18:17)
[2019-01-11] MEDS: FUROSEMIDE 40 MG TAB PO SCH (08:15)
[2019-01-11] MEDS: CARVedilol 12.5 MG TAB PO SCH ×2 (08:15→21:23)
[2019-01-11] MEDS: HumaLOG INSULIN (NovoLOG) PER UNIT SC SCH ×4 (08:17→21:29)
[2019-01-11] MEDS ORDERED: FUROSEMIDE 20 MG TAB PO SCH (13:00)
[2019-01-11 14:00] VITALS: BP 120/61
[2019-01-11] MEDS ORDERED: FUROSEMIDE 20 MG TAB PO ONE (18:00)
--- NOTE | 2019-01-11 18:00 | IPNPDOC ---
Subjective Date Seen The patient was seen on 01/11/19. Subjective Chief Complaint/HPI She reports that she is feeling better today, feels that diarrhea and stomach discomfort is improving. She remains on NC O2 but states she is breathing fine, denies any concerns. In good spirits. Constitutional: Denies: Chills, Fever Pulmonary: Denies: Dyspnea (but on supplemental O2), Cough Gastrointestinal: Reports: Diarrhea (but improving); Denies: Nausea, Vomiting Objective Physical Examination General Exam: Positive: Alert, Cooperative, No Acute Distress (comfortable on oxygen) Eye Exam: Positive: PERRLA ENT Exam: Positive: Atraumatic Neck Exam: Positive: Supple; Negative: JVD Chest Exam: Positive: Clear to auscultation, Normal air movement Heart Exam: Positive: Rate Normal, Regular Rhythm Abdomen Exam: Positive: Normal bowel sounds, Soft; Negative: Tenderness Extremity Exam: Negative: Edema Skin Exam: Negative: Rash, Breakdown Neuro Exam: Positive: Normal Speech, Strength at 5/5 X4 ext Psych Exam: Positive: Mental status NL, Mood NL, Oriented x 3 A-FIB/CHADSVASC A-FIB History Current/History of A-Fib/PAF?: No Assessment /Plan Problems (1) CHF (congestive heart failure) Status: Acute Response to Treatment: Stable Problem Text: 01/11: She was still net positive, though less so, yesterday. Spoke with nursing about getting daily weights, and using the bedscale it looks like she is up 5 kg. She already had received some oral Lasix this a.m., so I continued PO Lasix today, IV Lasix ordered for tomorrow with net negatives. She denies any dyspnea or chest discomfort. Will continue to monitor I&Os and daily weights while diuresing. 01/10: Decompensated, requiring oxygen. New pleural effusions on CXR. IVFs stopped and given PO Lasix. Daily weights are not currently accurate (quite different values with different scales) but I&Os consistent with fluid overload. 01/09/19: Patient appears well compensated today. We will monitor her IVF closely. Once her oral intake is adequate we will need to d/c her IVF 01/08/19: Lasix on hold. Patient appears well compensated. We will need to monitor her IVF to avoid volume overload (2) Diarrhea Status: Acute Problem Text: 01/09/19: She was started on Cholestyramine yesterday. Additional stool studies pending. We will continue to monitor 01/08/19: Patient was admitted back December 28 for same issue. GI panel was negative. Celiac panel pending. We will start cholestyramine today. (3) Acute kidney injury Status: Acute Response to Treatment: Stable Problem Text: 01/11: Creatinine up slightly today. Unfortunately, we do need to diurese her, and we'll try to find a balance in her fluid status. 01/10: Creatinine similar to yesterday and similar to recent hospital discharge. IVFs stopped today. 01/09/19: Renal function much improved, Cre 1.33, GFR 42. Patient has advanced her diet and her stools are slowly improving. Once she has adequate oral intake we will need to d/c her IVF 01/08/19: Secondary to dehydration. Cre 1.85, GFR 28.9, improved from Cre 2.21 upon admission. Patient with CKD baseline ~1.7-1.9. She is receiving hydration with KCL. (4) Hypokalemia Status: Acute Problem Text: 01/10: Normal potassium this a.m., though I gave her some Lasix this afternoon. 01/09/19: K+ 3.3 this morning. She continues with NS/KCL IVF. She was given K+ 20 meq x 1 this morning. We will repeat her K+ this afternoon. 01/08/19: She received 5 runs of K+ this morning and was started on NS with KCL at 70/hr. Repeat K+ scheduled for 12pm. (5) Hypertension Status: Chronic Response to Treatment: Stable Problem Text: 01/08/19: Pressures stable on Coreg and Norvasc. Losartan, HCTZ and Lasix are on hold (6) DM2 (diabetes mellitus, type 2) Status: Chronic Response to Treatment: Stable Problem Text: 01/08/19: Sliding scale coverage (7) CKD (chronic kidney disease) stage 3, GFR 30-59 ml/min Status: Chronic Problem Text: 01/08/19: Patient with CKD baseline cre ~1.7-1.9 Plan/VTE VTE Prophylaxis Ordered?: Yes (Heparin ) Plan Anticipated Discharge: Home VS, I&O, 24H, Fishbone Vital Signs/I&O Vital Signs Date Time Temp Pulse Resp B/P (MAP) Pulse Ox O2 Delivery O2 Flow Rate FiO2 01/11/19 14:00 96.4 82 18 120/61 (80) 94 3.0 01/10/19 21:31 Nasal Cannula I&O- Last 24 Hours up to 6 AM 01/11/19 06:00 Intake Total 2180 ml Output Total 2300 ml Balance -120 ml Laboratory Data 24H LABS Laboratory Tests 2 01/10/19 20:44: Bedside Glucose (Misc Panel) 250H 01/11/19 05:33: Immature Granulocyte % (Auto) 1.7, White Blood Count 7.2, Red Blood Count 4.07, Hemoglobin 9.3L, Hematocrit 32.3L, Mean Corpuscular Volume 79.4L, Mean Corpuscular Hemoglobin 22.9L, Mean Corpuscular Hemoglobin Concent 28.8L, Red Cell Distribution Width 18.5H, Platelet Count 292, Neutrophils (%) (Auto) 68.0H, Lymphocytes (%) (Auto) 11.7L, Monocytes (%) (Auto) 8.0H, Eosinophils (%) (Auto) 9.9H, Basophils (%) (Auto) 0.7, Neutrophils # (Auto) 4.9, Lymphocytes # (Auto) 0.9L, Monocytes # (Auto) 0.6, Eosinophils # (Auto) 0.7H, Basophils # (Auto) 0.1, Nucleated Red Blood Cells % (auto) 0.0, Anion Gap 5L, Glomerular Filtration Rate 39.8L, Blood Urea Nitrogen 15, Creatinine 1.40H, Sodium Level 141, Potassium Level 4.1, Chloride Level 115H, Carbon Dioxide Level 21, Calcium Level 8.4L, Aspartate Amino Transf (AST/SGOT) 10, Alanine Aminotransferase (ALT/SGPT) 9L, Alkaline Phosphatase 77, Total Bilirubin 0.9, Total Protein 5.7L, Albumin 2.6L, Albumin/Globulin Ratio 0.84L 01/11/19 06:13: Bedside Glucose (Misc Panel) 184H 01/11/19 11:34: Bedside Glucose (Misc Panel) 184H 01/11/19 16:27: Bedside Glucose (Misc Panel) 274H CBC/BMP Laboratory Tests 01/11/19 05:33 Red Blood Count 4.07, Mean Corpuscular Volume 79.4 L, Mean Corpuscular Hemoglobin 22.9 L, Mean Corpuscular Hemoglobin Concent 28.8 L, Red Cell Distribution Width 18.5 H, Neutrophils (%) (Auto) 68.0 H, Lymphocytes (%) (Auto) 11.7 L, Monocytes (%) (Auto) 8.0 H, Eosinophils (%) (Auto) 9.9 H, Basophils (%) (Auto) 0.7, Neutrophils # (Auto) 4.9, Lymphocytes # (Auto) 0.9 L, Monocytes # (Auto) 0.6, Eosinophils # (Auto) 0.7 H, Basophils # (Auto) 0.1, Calcium Level 8.4 L, Aspartate Amino Transf (AST/SGOT) 10, Alanine Aminotransferase (ALT/SGPT) 9 L, Alkaline Phosphatase 77, Total Bilirubin 0.9, Total Protein 5.7 L, Albumin 2.6 L Microbiology Microbiology 01/09/19 Stool Occult Blood (BRIANNA) - Final, Complete 01/09/19 Stool Lactoferrin - Final, Complete 01/07/19 Gastrointestinal Tract Panel (PCR) - Final, Complete 01/07/19 Urine Culture - Final, Complete CARYL MARTINEZ DO January 11, 2019 18:00
[2019-01-11 22:00] VITALS: BP 123/94
[2019-01-12 06:00] VITALS: BP 114/73
[2019-01-12] MEDS: PANTOPRAZOLE 40MG INJ (PROTONIX) (C9113) IV SCH (09:05)
[2019-01-12] MEDS: ACETAMINOPHEN TAB 650MG DOSE (2X325MG) PO PRN (09:05)
[2019-01-12] MEDS: CHOLESTYRAMINE 4 GM PWD PKT PO SCH ×2 (09:07→20:45)
[2019-01-12] MEDS: PRAVASTATIN 20 MG TAB PO SCH (09:07)
[2019-01-12] MEDS: FUROSEMIDE 40 MG/4 ML VIAL (J1940) IV SCH ×2 (09:07→17:10)
[2019-01-12] MEDS: ONDANSETRON 4MG/2ML VIAL (J2405) IV PRN ×2 (09:07→17:48)
[2019-01-12] MEDS: HEPARIN SOD (PORCINE) 5000 UNITS/ML VIAL SC SCH ×2 (09:07→20:47)
[2019-01-12] MEDS: CARVedilol 12.5 MG TAB PO SCH ×2 (09:08→20:45)
[2019-01-12] MEDS: HumaLOG INSULIN (NovoLOG) PER UNIT SC SCH ×4 (09:08→20:46)
[2019-01-12] MEDS: amLODIPine 5 MG TAB PO SCH (09:08)
[2019-01-12] MEDS: NYSTATIN 100,000 UNITS/GM TOPICAL PWD 15 GM TOP SCH ×2 (09:09→20:46)
--- NOTE | 2019-01-12 11:10 | IPNPDOC ---
Subjective Date Seen The patient was seen on 01/12/19. Subjective Chief Complaint/HPI Pt this morning feeling better. She ate well for breakfast. Nursing working to replace her IV. General: Denies: Fatigue Constitutional: Denies: Chills, Fever ENT: Denies: Head Aches Pulmonary: Reports: Dyspnea (improving.) Cardiovascular: Denies: Chest Pain, Palpitations Gastrointestinal: Reports: Diarrhea; Denies: Nausea, Vomiting Neurological: Reports: Weakness Psych: Reports: Mood Normal Objective Physical Examination General Exam: Positive: Alert, Cooperative, No Acute Distress Chest Exam: Positive: Clear to auscultation, Normal air movement Heart Exam: Positive: Rate Normal, Regular Rhythm Abdomen Exam: Positive: Normal bowel sounds, Soft; Negative: Tenderness Extremity Exam: Negative: Edema Skin Exam: Negative: Rash, Breakdown Neuro Exam: Positive: Normal Speech, Strength at 5/5 X4 ext Psych Exam: Positive: Mental status NL, Mood NL, Oriented x 3 A-FIB/CHADSVASC A-FIB History Current/History of A-Fib/PAF?: No Assessment /Plan Assessment 01/12 -- Patient reports that she is feeling pretty well, receiving IV Lasix. States diarrhea improving. Nursing asks if they can check a nocturnal pulse oximetry at night. -- CDT Problems (1) CHF (congestive heart failure) Status: Acute Response to Treatment: Stable Problem Text: 01/12 Resp status cont to improve. Cont with IV lasix, Scr pending this AM. BNP 4584 01/11: She was still net positive, though less so, yesterday. Spoke with nursing about getting daily weights, and using the bedscale it looks like she is up 5 kg. She already had received some oral Lasix this a.m., so I continued PO Lasix today, IV Lasix ordered for tomorrow with net negatives. She denies any dyspnea or chest discomfort. Will continue to monitor I&Os and daily weights while diuresing. 01/10: Decompensated, requiring oxygen. New pleural effusions on CXR. IVFs stopped and given PO Lasix. Daily weights are not currently accurate (quite different values with different scales) but I&Os consistent with fluid overload. 01/09/19: Patient appears well compensated today. We will monitor her IVF closely. Once her oral intake is adequate we will need to d/c her IVF 01/08/19: Lasix on hold. Patient appears well compensated. We will need to monitor her IVF to avoid volume overload (2) Diarrhea Status: Acute Problem Text: 01/12 improved 01/09/19: She was started on Cholestyramine yesterday. Additional stool studies pending. We will continue to monitor 01/08/19: Patient was admitted back December 28 for same issue. GI panel was negative. Celiac panel pending. We will start cholestyramine today. (3) Acute kidney injury Status: Acute Response to Treatment: Stable Problem Text: 01/12 await todays labs 01/11: Creatinine up slightly today. Unfortunately, we do need to diurese her, and we'll try to find a balance in her fluid status. 01/10: Creatinine similar to yesterday and similar to recent hospital discharge. IVFs stopped today. 01/09/19: Renal function much improved, Cre 1.33, GFR 42. Patient has advanced her diet and her stools are slowly improving. Once she has adequate oral intake we will need to d/c her IVF 01/08/19: Secondary to dehydration. Cre 1.85, GFR 28.9, improved from Cre 2.21 upon admission. Patient with CKD baseline ~1.7-1.9. She is receiving hydration with KCL. (4) Hypokalemia Status: Acute Problem Text: 01/12 await labs 01/10: Normal potassium this a.m., though I gave her some Lasix this afternoon. 01/09/19: K+ 3.3 this morning. She continues with NS/KCL IVF. She was given K+ 20 meq x 1 this morning. We will repeat her K+ this afternoon. 01/08/19: She received 5 runs of K+ this morning and was started on NS with KCL at 70/hr. Repeat K+ scheduled for 12pm. (5) Hypertension Status: Chronic Response to Treatment: Stable Problem Text: 01/08/19: Pressures stable on Coreg and Norvasc. Losartan, HCTZ and Lasix are on hold (6) DM2 (diabetes mellitus, type 2) Status: Chronic Response to Treatment: Stable Problem Text: 01/08/19: Sliding scale coverage (7) CKD (chronic kidney disease) stage 3, GFR 30-59 ml/min Status: Chronic Problem Text: 01/08/19: Patient with CKD baseline cre ~1.7-1.9 Plan/VTE VTE Prophylaxis Ordered?: Yes (Heparin ) Plan Anticipated Discharge: Home VS, I&O, 24H, Fishbone Vital Signs/I&O Vital Signs Date Time Temp Pulse Resp B/P (MAP) Pulse Ox O2 Delivery O2 Flow Rate FiO2 01/12/19 09:08 78 114/73 01/12/19 06:00 97.0 18 93 2.0 01/10/19 21:31 Nasal Cannula I&O- Last 24 Hours up to 6 AM 01/12/19 06:00 Intake Total 2010 ml Output Total 1550 ml Balance 460 ml Laboratory Data 24H LABS Laboratory Tests 2 01/11/19 11:34: Bedside Glucose (Misc Panel) 184H 01/11/19 16:27: Bedside Glucose (Misc Panel) 274H 01/11/19 20:21: Bedside Glucose (Misc Panel) 295H 01/12/19 05:28: ZK-Wav-W-Type Natriuretic Peptide 4584H 01/12/19 06:26: Bedside Glucose (Misc Panel) 223H 01/12/19 10:58: CBC/BMP Microbiology Microbiology 01/09/19 Stool Occult Blood (BRIANNA) - Final, Complete 01/09/19 Stool Lactoferrin - Final, Complete 01/07/19 Gastrointestinal Tract Panel (PCR) - Final, Complete 01/07/19 Urine Culture - Final, Complete ISABELLA SALAZAR PA-C January 12, 2019 11:10 CARYL MARTINEZ DO January 12, 2019 18:24
[2019-01-12 11:40] LABS: CALCIUM LEVEL 8.4 MG/DL (8.8-10.2); CREATININE FOR GFR 1.7 MG/DL (0.55-1.30); GLOMERULAR FILTRATION RATE 31.8 (>45); POTASSIUM SERUM 4.6 MEQ/L (3.5-5.1)
[2019-01-12 14:00] VITALS: BP 111/55
[2019-01-12 14:53] VITALS: O2SAT 92
[2019-01-12 22:00] VITALS: BP 135/70; O2SAT 93
[2019-01-13] MEDS: FUROSEMIDE 40 MG/4 ML VIAL (J1940) IV SCH ×2 (00:10→09:01)
[2019-01-13] MEDS: ACETAMINOPHEN TAB 650MG DOSE (2X325MG) PO PRN (04:53)
[2019-01-13 06:00] VITALS: BP 126/68
[2019-01-13] MEDS: HumaLOG INSULIN (NovoLOG) PER UNIT SC SCH ×4 (09:01→21:11)
[2019-01-13] MEDS: HEPARIN SOD (PORCINE) 5000 UNITS/ML VIAL SC SCH ×2 (09:02→21:10)
[2019-01-13] MEDS: PANTOPRAZOLE 40MG INJ (PROTONIX) (C9113) IV SCH (09:02)
[2019-01-13] MEDS: CHOLESTYRAMINE 4 GM PWD PKT PO SCH ×2 (09:03→21:10)
[2019-01-13] MEDS: CARVedilol 12.5 MG TAB PO SCH ×2 (09:05→21:10)
[2019-01-13] MEDS: amLODIPine 5 MG TAB PO SCH (09:05)
[2019-01-13] MEDS: NYSTATIN 100,000 UNITS/GM TOPICAL PWD 15 GM TOP SCH ×2 (09:06→21:11)
[2019-01-13] MEDS: PRAVASTATIN 20 MG TAB PO SCH (09:06)
[2019-01-13 09:30] VITALS: O2SAT 92
[2019-01-13 09:51] LABS: BASO # 0.1 10^3/uL (0.0-0.2); BASO % 0.8 % (0.0-1.0); HEMATOCRIT 33.2 % (36.0-47.0); HEMOGLOBIN 9.7 g/dl (12.0-15.5); LYMPH # 0.7 10^3/uL (1.5-4.5); LYMPH % 9.8 % (24.0-44.0); MEAN CORPUSCULAR HGB CONC 29.2 g/dl (32.0-36.5); MEAN CORPUSCULAR VOLUME 78.7 fl (80.0-96.0); MONO # 0.5 10^3/uL (0.0-0.8); MONO % 6.6 % (0.0-5.0); NEUTROPHILS # 5.9 10^3/uL (1.8-7.7); PLATELET COUNT, AUTOMATED 348 10^3/uL (150-450); RED BLOOD COUNT 4.22 10^6/uL (4.00-5.40); WHITE BLOOD COUNT 7.2 10^3/uL (4.0-10.0)
--- NOTE | 2019-01-13 10:05 | IPNPDOC ---
Subjective Date Seen The patient was seen on 01/13/19. Subjective Chief Complaint/HPI Pt this morning is feeling much better than she has been. Her strength has improved, she slept better last night than she has. Her appetite is improving. General: Reports: Fatigue Constitutional: Denies: Chills, Fever Pulmonary: Denies: Dyspnea, Cough Cardiovascular: Denies: Chest Pain, Palpitations Gastrointestinal: Denies: Nausea, Vomiting, Diarrhea Neurological: Reports: Weakness Psych: Reports: Mood Normal Objective Physical Examination General Exam: Positive: Alert, Cooperative, No Acute Distress ENT Exam: Positive: Mucous membr. moist/pink Chest Exam: Positive: Clear to auscultation, Normal air movement Heart Exam: Positive: Rate Normal, Regular Rhythm Abdomen Exam: Positive: Normal bowel sounds, Soft; Negative: Tenderness Extremity Exam: Negative: Edema Skin Exam: Negative: Rash, Breakdown Neuro Exam: Positive: Normal Speech, Strength at 5/5 X4 ext Psych Exam: Positive: Mental status NL, Mood NL, Oriented x 3 A-FIB/CHADSVASC A-FIB History Current/History of A-Fib/PAF?: No Assessment /Plan Problems (1) CHF (congestive heart failure) Status: Acute Response to Treatment: Stable Problem Text: 01/13 Resp status cont to improve. She has been on IV Lasix 40 TID, Net Neg yest -990. Will change to PO Lasix today. 01/12 Resp status cont to improve. Cont with IV lasix, Scr pending this AM. BNP 4584 01/11: She was still net positive, though less so, yesterday. Spoke with nursing about getting daily weights, and using the bedscale it looks like she is up 5 kg. She already had received some oral Lasix this a.m., so I continued PO Lasix today, IV Lasix ordered for tomorrow with net negatives. She denies any dyspnea or chest discomfort. Will continue to monitor I&Os and daily weights while diuresing. 01/10: Decompensated, requiring oxygen. New pleural effusions on CXR. IVFs stopped and given PO Lasix. Daily weights are not currently accurate (quite different values with different scales) but I&Os consistent with fluid overload. 01/09/19: Patient appears well compensated today. We will monitor her IVF closely. Once her oral intake is adequate we will need to d/c her IVF 01/08/19: Lasix on hold. Patient appears well compensated. We will need to monitor her IVF to avoid volume overload (2) Diarrhea Status: Acute Problem Specific Plan: Monitor Clinically Problem Text: 01/13 Scr, increased yesterday from 1.3 to 1.7, labs again pending this AM, will d/c IV lasix. Monitor. 01/12 improved 01/09/19: She was started on Cholestyramine yesterday. Additional stool studies pending. We will continue to monitor 01/08/19: Patient was admitted back December 28 for same issue. GI panel was negative. Celiac panel pending. We will start cholestyramine today. (3) Acute kidney injury Status: Acute Response to Treatment: Stable Problem Text: 01/12 await todays labs 01/11: Creatinine up slightly today. Unfortunately, we do need to diurese her, and we'll try to find a balance in her fluid status. 01/10: Creatinine similar to yesterday and similar to recent hospital discharge. IVFs stopped today. 01/09/19: Renal function much improved, Cre 1.33, GFR 42. Patient has advanced her diet and her stools are slowly improving. Once she has adequate oral intake we will need to d/c her IVF 01/08/19: Secondary to dehydration. Cre 1.85, GFR 28.9, improved from Cre 2.21 upon admission. Patient with CKD baseline ~1.7-1.9. She is receiving hydration with KCL. (4) Hypokalemia Status: Resolved Problem Text: 01/12 await labs 01/10: Normal potassium this a.m., though I gave her some Lasix this afternoon. 01/09/19: K+ 3.3 this morning. She continues with NS/KCL IVF. She was given K+ 20 meq x 1 this morning. We will repeat her K+ this afternoon. 01/08/19: She received 5 runs of K+ this morning and was started on NS with KCL at 70/hr. Repeat K+ scheduled for 12pm. (5) Hypertension Status: Chronic Response to Treatment: Stable Problem Text: 01/08/19: Pressures stable on Coreg and Norvasc. Losartan, HCTZ and Lasix are on hold (6) DM2 (diabetes mellitus, type 2) Status: Chronic Response to Treatment: Stable Problem Text: 01/08/19: Sliding scale coverage (7) CKD (chronic kidney disease) stage 3, GFR 30-59 ml/min Status: Chronic Problem Text: 01/08/19: Patient with CKD baseline cre ~1.7-1.9 Plan/VTE VTE Prophylaxis Ordered?: Yes (Heparin ) Plan Anticipated Discharge: Home VS, I&O, 24H, Fishbone Vital Signs/I&O Vital Signs Date Time Temp Pulse Resp B/P (MAP) Pulse Ox O2 Delivery O2 Flow Rate FiO2 01/13/19 09:05 88 110/70 01/13/19 06:00 98.4 18 92 2.0 01/12/19 22:00 Nasal Cannula I&O- Last 24 Hours up to 6 AM 01/13/19 06:00 Intake Total 1680 ml Output Total 3400 ml Balance -1720 ml Laboratory Data 24H LABS Laboratory Tests 2 01/12/19 10:58: Anion Gap 6L, Glomerular Filtration Rate 31.8L, Blood Urea Nitrogen 21H, Creatinine 1.70H, Sodium Level 140, Potassium Level 4.6, Chloride Level 112H, Carbon Dioxide Level 22, Calcium Level 8.4L 01/12/19 11:35: Bedside Glucose (Misc Panel) 240H 01/12/19 16:41: Bedside Glucose (Misc Panel) 337H 01/12/19 20:08: Bedside Glucose (Misc Panel) 267H 01/13/19 05:42: Bedside Glucose (Misc Panel) 232H 01/13/19 09:30: Immature Granulocyte % (Auto) 0.8, White Blood Count 7.2, Red Blood Count 4.22, Hemoglobin 9.7L, Hematocrit 33.2L, Mean Corpuscular Volume 78.7L, Mean Corpu scular Hemoglobin 23.0L, Mean Corpuscular Hemoglobin Concent 29.2L, Red Cell Distribution Width 18.9H, Platelet Count 348, Neutrophils (%) (Auto) 82.0H, Lymphocytes (%) (Auto) 9.8L, Monocytes (%) (Auto) 6.6H, Eosinophils (%) (Auto) 0.0, Basophils (%) (Auto) 0.8, Neutrophils # (Auto) 5.9, Lymphocytes # (Auto) 0.7L, Monocytes # (Auto) 0.5, Eosinophils # (Auto) 0.0, Basophils # (Auto) 0.1, Nucleated Red Blood Cells % (auto) 0.0 CBC/BMP Laboratory Tests 01/12/19 10:58 Calcium Level 8.4 L 01/13/19 09:30 Red Blood Count 4.22, Mean Corpuscular Volume 78.7 L, Mean Corpuscular Hemoglobin 23.0 L, Mean Corpuscular Hemoglobin Concent 29.2 L, Red Cell Distribu tion Width 18.9 H, Neutrophils (%) (Auto) 82.0 H, Lymphocytes (%) (Auto) 9.8 L, Monocytes (%) (Auto) 6.6 H, Eosinophils (%) (Auto) 0.0, Basophils (%) (Auto) 0.8, Neutrophils # (Auto) 5.9, Lymphocytes # (Auto) 0.7 L, Monocytes # (Auto) 0.5, Eosinophils # (Auto) 0.0, Basophils # (Auto) 0.1 Microbiology Microbiology 01/09/19 Stool Occult Blood (BRIANNA) - Final, Complete 01/09/19 Stool Lactoferrin - Final, Complete 01/07/19 Gastrointestinal Tract Panel (PCR) - Final, Complete 01/07/19 Urine Culture - Final, Complete ISABELLA SALAZAR PA-C January 13, 2019 10:05
[2019-01-13 10:20] LABS: ALBUMIN 2.8 GM/DL (3.2-5.2); BILIRUBIN,TOTAL 0.8 MG/DL (0.2-1.0); CALCIUM LEVEL 8.3 MG/DL (8.8-10.2); CREATININE FOR GFR 1.73 MG/DL (0.55-1.30); GLOMERULAR FILTRATION RATE 31.2 (>45); POTASSIUM SERUM 3.9 MEQ/L (3.5-5.1); TOTAL PROTEIN 6.3 GM/DL (6.4-8.2)
[2019-01-13 14:00] VITALS: BP 116/73
[2019-01-13 23:14] VITALS: O2SAT 92
[2019-01-14] MEDS: ACETAMINOPHEN TAB 650MG DOSE (2X325MG) PO PRN ×2 (00:20→22:11)
[2019-01-14 06:00] VITALS: BP 120/64
[2019-01-14 06:12] LABS: BASO # 0.1 10^3/uL (0.0-0.2); BASO % 0.8 % (0.0-1.0); EOS # 0.9 10^3/uL (0.0-0.50); EOS % 10.1 % (0.0-3.0); HEMATOCRIT 30.4 % (36.0-47.0); LYMPH % 12.3 % (24.0-44.0); MEAN CORPUSCULAR HEMOGLOBIN 23.2 pg (27.0-33.0); MEAN CORPUSCULAR HGB CONC 29.6 g/dl (32.0-36.5); MEAN CORPUSCULAR VOLUME 78.4 fl (80.0-96.0); MONO # 0.5 10^3/uL (0.0-0.8); MONO % 6.4 % (0.0-5.0); NEUTROPHILS # 5.9 10^3/uL (1.8-7.7); NEUTROPHILS % 69.2 % (36.0-66.0); PLATELET COUNT, AUTOMATED 334 10^3/uL (150-450); RED BLOOD COUNT 3.88 10^6/uL (4.00-5.40); WHITE BLOOD COUNT 8.5 10^3/uL (4.0-10.0)
[2019-01-14 06:44] LABS: ALBUMIN 2.5 GM/DL (3.2-5.2); BILIRUBIN,TOTAL 0.7 MG/DL (0.2-1.0); CALCIUM LEVEL 7.7 MG/DL (8.8-10.2); CREATININE FOR GFR 1.62 MG/DL (0.55-1.30); GLOMERULAR FILTRATION RATE 33.6 (>45); POTASSIUM SERUM 3.9 MEQ/L (3.5-5.1); TOTAL PROTEIN 5.8 GM/DL (6.4-8.2)
[2019-01-14] MEDS: HEPARIN SOD (PORCINE) 5000 UNITS/ML VIAL SC SCH ×2 (08:59→21:46)
[2019-01-14] MEDS: CARVedilol 12.5 MG TAB PO SCH ×2 (09:00→21:47)
[2019-01-14] MEDS: amLODIPine 5 MG TAB PO SCH (09:00)
[2019-01-14] MEDS: HumaLOG INSULIN (NovoLOG) PER UNIT SC SCH ×4 (09:00→21:47)
[2019-01-14] MEDS: CHOLESTYRAMINE 4 GM PWD PKT PO SCH ×2 (09:01→22:55)
[2019-01-14] MEDS: FUROSEMIDE 40 MG TAB PO SCH (09:01)
[2019-01-14] MEDS: PRAVASTATIN 20 MG TAB PO SCH (09:01)
[2019-01-14] MEDS: PANTOPRAZOLE 40MG INJ (PROTONIX) (C9113) IV SCH (09:01)
[2019-01-14] MEDS: NYSTATIN 100,000 UNITS/GM TOPICAL PWD 15 GM TOP SCH ×2 (09:01→21:46)
--- NOTE | 2019-01-14 10:42 | IPN ---
DATE: 01/14/2019 Autumn Jenkins is seen in [address] [place] [address]. She feels well. She would like to go home. She says she is not short of breath. She still has her lower extremity edema. PHYSICAL EXAMINATION: 119/75. Pulse 87. Respiratory rate 18. 93% oxygen saturation. Alert, conversant, supine, in no distress. Lungs clear. Heart regular rate and rhythm. Abdomen soft and nontender. 1+ peripheral edema. IMPRESSION: 1. Congestive heart failure. She put out 1.3 liters yesterday on transition to oral furosemide. Her renal function is stable. At this point, she essentially has cardiorenal syndrome and I think she has achieved the balance between diuresis and being prerenal and unless her labs look dramatically different tomorrow she can be discharged on her current dose of furosemide. 2. Acute on chronic kidney disease. Again, I think she has cardiorenal syndrome and a balance between these two seems to have been met. 3. Diarrhea. This is resolved per patient. 4. Hypokalemia. This has resolved. 5. Chronic kidney disease Stage 3. She has daily labs ordered. 6. Type 2 diabetes. She is on glargine insulin and Invokana at home. I am not sure the Invokana is going to provide much with her declining renal function, but it has worked somewhat as a diuretic and has a decreased rate of heart failure admissions for patients on this so I would continue this on discharge. Plan is for discharge tomorrow.
[2019-01-14 11:15] VITALS: O2SAT 92
[2019-01-14 14:00] VITALS: BP 127/74
[2019-01-14 14:11] LABS: FATS NEUTRAL Normal (.); FATS TOTAL Normal (.)
[2019-01-14 22:00] VITALS: BP 139/73
[2019-01-15 02:18] VITALS: O2SAT 94
[2019-01-15 06:00] VITALS: BP 130/68
[2019-01-15 06:34] LABS: HEMATOCRIT 31.8 % (36.0-47.0); HEMOGLOBIN 9.3 g/dl (12.0-15.5); MEAN CORPUSCULAR HEMOGLOBIN 22.9 pg (27.0-33.0); MEAN CORPUSCULAR HGB CONC 29.2 g/dl (32.0-36.5); MEAN CORPUSCULAR VOLUME 78.3 fl (80.0-96.0); PLATELET COUNT, AUTOMATED 332 10^3/uL (150-450); RED BLOOD COUNT 4.06 10^6/uL (4.00-5.40); WHITE BLOOD COUNT 7.2 10^3/uL (4.0-10.0)
[2019-01-15 06:57] LABS: CALCIUM LEVEL 7.9 MG/DL (8.8-10.2); CREATININE FOR GFR 1.41 MG/DL (0.55-1.30); GLOMERULAR FILTRATION RATE 39.5 (>45)
[2019-01-15] MEDS: CARVedilol 12.5 MG TAB PO SCH ×2 (08:28→20:06)
[2019-01-15] MEDS: PRAVASTATIN 20 MG TAB PO SCH (08:28)
[2019-01-15] MEDS: FUROSEMIDE 40 MG TAB PO SCH (08:28)
[2019-01-15] MEDS: CHOLESTYRAMINE 4 GM PWD PKT PO SCH ×2 (08:28→22:11)
[2019-01-15] MEDS: amLODIPine 5 MG TAB PO SCH (08:28)
[2019-01-15] MEDS: HEPARIN SOD (PORCINE) 5000 UNITS/ML VIAL SC SCH ×2 (08:29→20:06)
[2019-01-15] MEDS: PANTOPRAZOLE 40MG INJ (PROTONIX) (C9113) IV SCH (08:29)
[2019-01-15] MEDS: HumaLOG INSULIN (NovoLOG) PER UNIT SC SCH ×4 (08:29→22:17)
[2019-01-15] MEDS: NYSTATIN 100,000 UNITS/GM TOPICAL PWD 15 GM TOP SCH ×2 (08:29→20:06)
[2019-01-15 09:00] VITALS: O2SAT 93
--- NOTE | 2019-01-15 10:15 | IPNPDOC ---
Subjective Date Seen The patient was seen on 01/15/19. Subjective Chief Complaint/HPI Pt this morning is feeling well. She doesn't understand why there is a fuss over the foot being swollen this morning. General: Denies: Fatigue Constitutional: Denies: Chills, Fever ENT: Denies: Head Aches Pulmonary: Denies: Dyspnea, Cough Cardiovascular: Denies: Chest Pain, Palpitations Gastrointestinal: Denies: Nausea, Vomiting, Diarrhea Neurological: Reports: Weakness Psych: Reports: Mood Normal Objective Physical Examination General Exam: Positive: Alert, Cooperative, No Acute Distress ENT Exam: Positive: Mucous membr. moist/pink Chest Exam: Positive: Clear to auscultation, Normal air movement Heart Exam: Positive: Rate Normal, Regular Rhythm Abdomen Exam: Positive: Normal bowel sounds, Soft; Negative: Tenderness Extremity Exam: Negative: Edema Skin Exam: Negative: Rash, Breakdown Neuro Exam: Positive: Normal Speech, Strength at 5/5 X4 ext Psych Exam: Positive: Mental status NL, Mood NL, Oriented x 3 A-FIB/CHADSVASC A-FIB History Current/History of A-Fib/PAF?: No Assessment /Plan Problems (1) Unilateral edema of lower extremity Status: Acute Discussed With: Patient Problem Specific Plan: Monitor Clinically Problem Text: STAT US to r/o DVT ordered. (2) CHF (congestive heart failure) Status: Acute Response to Treatment: Stable Problem Text: 01/15 diastolic CHF, doing well, cont PO lasix. 01/13 Resp status cont to improve. She has been on IV Lasix 40 TID, Net Neg yest -990. Will change to PO Lasix today. 01/12 Resp status cont to improve. Cont with IV lasix, Scr pending this AM. BNP 4584 01/11: She was still net positive, though less so, yesterday. Spoke with nursing about getting daily weights, and using the bedscale it looks like she is up 5 kg. She already had received some oral Lasix this a.m., so I continued PO Lasix today, IV Lasix ordered for tomorrow with net negatives. She denies any dyspnea or chest discomfort. Will continue to monitor I&Os and daily weights while diuresing. 01/10: Decompensated, requiring oxygen. New pleural effusions on CXR. IVFs stopped and given PO Lasix. Daily weights are not currently accurate (quite different values with different scales) but I&Os consistent with fluid overload. 01/09/19: Patient appears well compensated today. We will monitor her IVF closely. Once her oral intake is adequate we will need to d/c her IVF 01/08/19: Lasix on hold. Patient appears well compensated. We will need to monitor her IVF to avoid volume overload (3) Diarrhea Status: Acute Problem Specific Plan: Monitor Clinically Problem Text: 01/13 Scr, increased yesterday from 1.3 to 1.7, labs again pending this AM, will d/c IV lasix. Monitor. 01/12 improved 01/09/19: She was started on Cholestyramine yesterday. Additional stool studies pending. We will continue to monitor 01/08/19: Patient was admitted back December 28 for same issue. GI panel was negative. Celiac panel pending. We will start cholestyramine today. (4) Acute kidney injury Status: Resolved Response to Treatment: Stable Problem Text: 01/15 returned to baseline 01/12 await todays labs 01/11: Creatinine up slightly today. Unfortunately, we do need to diurese her, and we'll try to find a balance in her fluid status. 01/10: Creatinine similar to yesterday and similar to recent hospital discharge. IVFs stopped today. 01/09/19: Renal function much improved, Cre 1.33, GFR 42. Patient has advanced her diet and her stools are slowly improving. Once she has adequate oral intake we will need to d/c her IVF 01/08/19: Secondary to dehydration. Cre 1.85, GFR 28.9, improved from Cre 2.21 upon admission. Patient with CKD baseline ~1.7-1.9. She is receiving hydration with KCL. (5) Hypokalemia Status: Resolved Problem Text: 01/12 await labs 01/10: Normal potassium this a.m., though I gave her some Lasix this afternoon. 01/09/19: K+ 3.3 this morning. She continues with NS/KCL IVF. She was given K+ 20 meq x 1 this morning. We will repeat her K+ this afternoon. 01/08/19: She received 5 runs of K+ this morning and was started on NS with KCL at 70/hr. Repeat K+ scheduled for 12pm. (6) Hypertension Status: Chronic Response to Treatment: Stable Problem Text: 01/08/19: Pressures stable on Coreg and Norvasc. Losartan, HCTZ and Lasix are on hold (7) DM2 (diabetes mellitus, type 2) Status: Chronic Response to Treatment: Stable Problem Text: 01/08/19: Sliding scale coverage (8) CKD (chronic kidney disease) stage 3, GFR 30-59 ml/min Status: Chronic Problem Text: 01/08/19: Patient with CKD baseline cre ~1.7-1.9 Plan/VTE VTE Prophylaxis Ordered?: Yes (Heparin ) Plan Anticipated Discharge: Home VS, I&O, 24H, Fishbone Vital Signs/I&O Vital Signs Date Time Temp Pulse Resp B/P (MAP) Pulse Ox O2 Delivery O2 Flow Rate FiO2 01/15/19 08:28 86 136/77 01/15/19 06:00 97.9 17 92 2.0 01/15/19 02:18 Nasal Cannula I&O- Last 24 Hours up to 6 AM 01/15/19 06:00 Intake Total 2310 ml Output Total 2400 ml Balance -90 ml Laboratory Data 24H LABS Laboratory Tests 2 01/14/19 11:25: Bedside Glucose (Misc Panel) 282H 01/14/19 16:34: Bedside Glucose (Misc Panel) 195H 01/14/19 20:19: Bedside Glucose (Misc Panel) 356H 01/15/19 05:39: Bedside Glucose (Misc Panel) 246H 01/15/19 06:02: Nucleated Red Blood Cells % (auto) 0.0, Anion Gap 4L, Glomerular Filtration Rate 39.5L, Blood Urea Nitrogen 27H, Creatinine 1.41H, Sodium Level 140, Potassium Level 4.0, Chloride Level 109H, Carbon Dioxide Level 27, Calcium Level 7.9L CBC/BMP Laboratory Tests 01/15/19 06:02 Red Blood Count 4.06, Mean Corpuscular Volume 78.3 L, Mean Corpuscular Hemoglobin 22.9 L, Mean Corpuscular Hemoglobin Concent 29.2 L, Red Cell Distribution Width 18.7 H, Calcium Level 7.9 L Microbiology Microbiology 01/09/19 Stool Occult Blood (BRIANNA) - Final, Complete 01/09/19 Stool Lactoferrin - Final, Complete 5/15/19 Gastrointestinal Tract Panel (PCR) - Final, Complete 01/07/19 Urine Culture - Final, Complete ISABELLA SALAZAR PA-C January 15, 2019 10:15
--- NOTE | 2019-01-15 10:29 | REP ---
Right lower extremity Duplex Doppler venous ultrasound: Real time compression and duplex Doppler interrogation of the right lower extremity deep venous system is performed. The right common femoral, superficial femoral and popliteal veins are fully compressible with transducer pressure and demonstrate normal spontaneous and phasic flow, without evidence of deep venous thrombosis. Impression: No evidence of deep venous thrombosis of the right lower extremity femoral popliteal venous system. Electronically Signed by Reid Lorenz MD 01/15/2019 10:21 A
[2019-01-15 14:00] VITALS: BP 140/81
[2019-01-15 22:00] VITALS: BP 126/78
[2019-01-15 23:16] VITALS: O2SAT 92
[2019-01-16 06:00] VITALS: BP 127/72
[2019-01-16 07:14] LABS: HEMATOCRIT 33.8 % (36.0-47.0); MEAN CORPUSCULAR HEMOGLOBIN 23.4 pg (27.0-33.0); MEAN CORPUSCULAR HGB CONC 29.6 g/dl (32.0-36.5); MEAN CORPUSCULAR VOLUME 79.2 fl (80.0-96.0); PLATELET COUNT, AUTOMATED 318 10^3/uL (150-450); RED BLOOD COUNT 4.27 10^6/uL (4.00-5.40); WHITE BLOOD COUNT 8.9 10^3/uL (4.0-10.0)
[2019-01-16 07:49] LABS: CALCIUM LEVEL 8.5 MG/DL (8.8-10.2); CREATININE FOR GFR 1.22 MG/DL (0.55-1.30); GLOMERULAR FILTRATION RATE 46.7 (>45); POTASSIUM SERUM 4.3 MEQ/L (3.5-5.1)
[2019-01-16] MEDS: PANTOPRAZOLE 40MG INJ (PROTONIX) (C9113) IV SCH ×2 (08:28→09:00)
[2019-01-16] MEDS: HEPARIN SOD (PORCINE) 5000 UNITS/ML VIAL SC SCH (08:28)
[2019-01-16] MEDS: NYSTATIN 100,000 UNITS/GM TOPICAL PWD 15 GM TOP SCH (08:28)
[2019-01-16] MEDS: HumaLOG INSULIN (NovoLOG) PER UNIT SC SCH (08:28)
[2019-01-16] MEDS: CHOLESTYRAMINE 4 GM PWD PKT PO SCH (08:29)
[2019-01-16 08:33] VITALS: BP 134/80
[2019-01-16] MEDS: PRAVASTATIN 20 MG TAB PO SCH (08:33)
[2019-01-16] MEDS: amLODIPine 5 MG TAB PO SCH (08:33)
[2019-01-16] MEDS: CARVedilol 12.5 MG TAB PO SCH (08:33)
[2019-01-16] MEDS: FUROSEMIDE 40 MG TAB PO SCH (08:33)
[2019-01-16] MEDS ORDERED: NYAM10003 TOP (09:08)
[2019-01-16] MEDS ORDERED: CHOL4PW PO (09:08)
--- NOTE | 2019-01-16 15:29 | DSES ---
DATE OF ADMISSION: 01/07/2019 DATE OF DISCHARGE: 01/16/2019 PRIMARY CARE PROVIDER: Dr. Luis Colmenares ATTENDING: Dr. Ruebn Tao HISTORY: This is a 68-year-old female patient who follows with Dr. Colmenares in the outpatient setting who presented to [facility] Emergency Room complaining of nausea, vomiting, nonbloody diarrhea for 1 day. She had been recently admitted from December 28- and treated for viral diarrhea. A CT done at that time was benign. States that every time she eats she has a bowel movement that is loose. In the emergency room (ER) on her second presentation, CT abdomen and pelvis showed earlier mild diverticulitis, acute renal failure, and hypokalemia. She was then admitted to the hospital for further management and monitoring. Her potassium was replaced. She was given intravenous (IV) fluids and started on clear liquid diet. She has been given cholestyramine to help control her loose stools. Gastrointestinal (GI) panel has been performed and is negative. She will need outpatient gastrointestinal followup. She did have occult blood, which was negative. Stool for polymorphonuclear leukocytes (polys) was positive. Her renal function has returned to baseline. Her potassium has also been replaced and normalized. She has completed intravenous (IV) antibiotics for concern for diverticulitis. She has been seen by physical therapy, who feel as though she is safe to return home. Her discharge was withheld yesterday secondary to some right lower extremity edema. She underwent negative ultrasound. I suspect she has edema, as she has been sitting with her left leg up on the bed and her right leg hanging over the edge of the bed, and I suspect this is contributing to this unilateral lower extremity edema. We talked about avoiding this and repositioning herself. DISCHARGE DIAGNOSES: 1. Unilateral lower extremity edema. 2. Acute on chronic congestive heart failure, diastolic. 3. Diarrhea. 4. Acute kidney injury. 5. Hypokalemia. 6. Hypertension. 7. Diabetes mellitus, type 2. 8. Chronic kidney disease, stage III. DISCHARGE MEDICATIONS: - cholestyramine 2 mg by mouth twice daily - nystatin powder topically twice daily to skin folds - amlodipine 5 mg daily - Invokana 100 mg daily - carvedilol 12 mg by mouth twice a day - furosemide 40 mg by mouth daily - Basaglar 50 units subcutaneous daily - Prevacid 30 mg by mouth daily - losartan 100 mg by mouth daily - potassium 10 mEq by mouth twice a day - pravastatin 40 mg daily DISCHARGE PLAN: Followup with Dr. Colmenares in 1 week. Activity should be as tolerated. Diet is regular.
[2019-01-17] MEDS ORDERED: TRAD5TAB PO (07:13)
[2019-01-17] MEDS ORDERED: GLIM2TAB PO (07:13)
[2019-01-17] MEDS ORDERED: RISATAB3 PO (07:13)
[2019-01-17] MEDS ORDERED: CHOL4POW4 PO (07:16)
[2019-01-17] MEDS ORDERED: CHOL4PW PO (07:16)
[2019-01-17] MEDS ORDERED: NYST1POW9 TOP (07:17)
[2019-01-17] MEDS ORDERED: PATIENT COMMENTS (07:19)
== END 2019-01-16 11:32 | disposition home health service (06) | DRG 682 ==
LOC: M ED 19:18 → M ED INP 23:51 → M MSPAV 01-08 02:58
PROVIDERS: ADMIT Internal Medicine; ATTEND Family Medicine
DX: N17.9 Acute kidney failure, unspecified (principal); I50.33 Acute on chronic diastolic (congestive) heart failure; I13.0 Hypertensive heart and chronic kidney disease with heart failure and stage 1 through stage 4 chronic kidney disease, or unspecified chronic kidney disease; E87.6 Hypokalemia; K52.9 Noninfective gastroenteritis and colitis, unspecified; E11.22 Type 2 diabetes mellitus with diabetic chronic kidney disease; E78.5 Hyperlipidemia, unspecified; E86.0 Dehydration; N18.3 Chronic kidney disease, stage 3 (moderate); Z88.0 Allergy status to penicillin; Z88.2 Allergy status to sulfonamides; Z88.8 Allergy status to other drugs, medicaments and biological substances; Z79.4 Long term (current) use of insulin; Z79.899 Other long term (current) drug therapy

== ENCOUNTER 2019-01-17 06:17 | Inpatient (IN) | payer MEDICARE ==
[~2019-01-17] VITALS: Ht 175.3 cm; Wt 81.2 kg
[~2019-01-17 06:17] MED LIST changes: +CARV12.5 PO; +CHOL4PW PO; +NYAM10003 TOP
[2019-01-17 06:33] LABS: ABG BASE EXCESS -6.5 (-2.0-2.0); ABG HCO3 21.2 MEQ/L (22.0-26.0); ABG O2 SATURATION 77.6 % (95.0-99.0); ABG PARTIAL PRESSURE CO2 52.4 mmHg (35.0-45.0); ABG PARTIAL PRESSURE O2 51.8 mmHg (75.0-100.0); ABG STANDARD HCO3 18.8 MEQ/L (22.0-26.0); ABG TOTAL CO2 22.8 MEQ/L (23.0-31.0)
[2019-01-17 06:37] LABS: ABG pH (ARTERIAL) 7.225 UNITS (7.350-7.450)
[2019-01-17] MEDS: IPRATROPIUM 0.5MG/ALBUTEROL 2.5MG INH SOL UD 3ML (DUONEB)(J7620) NEB SCH ×3 (06:49→09:05)
[2019-01-17 06:59] LABS: BASO # 0.1 10^3/uL (0.0-0.2); BASO % 0.7 % (0.0-1.0); HEMATOCRIT 33.8 % (36.0-47.0); HEMOGLOBIN 10.1 g/dl (12.0-15.5); LYMPH # 0.4 10^3/uL (1.5-4.5); LYMPH % 3.4 % (24.0-44.0); MEAN CORPUSCULAR HEMOGLOBIN 23.9 pg (27.0-33.0); MEAN CORPUSCULAR HGB CONC 29.9 g/dl (32.0-36.5); MEAN CORPUSCULAR VOLUME 79.9 fl (80.0-96.0); MONO # 0.3 10^3/uL (0.0-0.8); MONO % 2.7 % (0.0-5.0); NEUTROPHILS # 11.2 10^3/uL (1.8-7.7); NEUTROPHILS % 92.5 % (36.0-66.0); PLATELET COUNT, AUTOMATED 322 10^3/uL (150-450); RED BLOOD COUNT 4.23 10^6/uL (4.00-5.40); WHITE BLOOD COUNT 12.1 10^3/uL (4.0-10.0)
[2019-01-17] MEDS ORDERED: ISOVUE-370 76% 100ML VIAL (Q9967) As Ordered ONE (07:00)
[2019-01-17] MEDS ORDERED: TRAD5TAB PO (07:13)
[2019-01-17] MEDS ORDERED: GLIM2TAB PO (07:13)
[2019-01-17] MEDS ORDERED: RISATAB3 PO (07:13)
[2019-01-17] MEDS ORDERED: CHOL4POW4 PO (07:16)
[2019-01-17] MEDS ORDERED: CHOL4PW PO (07:16)
[2019-01-17] MEDS ORDERED: NYST1POW9 TOP (07:17)
[2019-01-17] MEDS ORDERED: PATIENT COMMENTS (07:19)
[2019-01-17 07:22] LABS: MB/CK RELATIVE INDEX 3.33 (< OR =4); TROPONIN I 0.02 NG/ML (< 0.10)
[2019-01-17 07:25] LABS: CALCIUM LEVEL 8.1 MG/DL (8.8-10.2); CREATININE FOR GFR 1.45 MG/DL (0.55-1.30); GLOMERULAR FILTRATION RATE 38.2 (>45); POTASSIUM SERUM 4.9 MEQ/L (3.5-5.1)
[2019-01-17] MEDS ORDERED: HumuLIN R (REGULAR) INSULIN (NovoLIN R) **100U/ML** PER UNIT IV ONE (07:45)
--- NOTE | 2019-01-17 07:56 | REPVR ---
EXAM: CT Angiography Chest With Contrast EXAM DATE/TIME: 01/17/2019 7:34 AM CLINICAL HISTORY: 68 years old, female; Signs and symptoms; Shortness of breath; Additional info: SOB TECHNIQUE: Imaging protocol: Axial computed tomographic angiography images of the chest with intravenous contrast using CT angiography protocol. Coronal and sagittal reformatted images were created and reviewed. 3D rendering: MIP reconstructed images were created and reviewed. Radiation optimization: All CT scans at this facility use at least one of these dose optimization techniques: automated exposure control; mA and/or kV adjustment per patient size (includes targeted exams where dose is matched to clinical indication); or iterative reconstruction. Contrast material: ISOVUE 370; Contrast volume: 75 ml; Contrast route: IV; COMPARISON: CR Chest, 2 view PA, Lat 01/10/2019 11:23 AM FINDINGS: Limitations: There is significant motion artifact. Pulmonary arteries: The pulmonary arteries are not enlarged. No filling defects are seen within the main pulmonary artery through the lobar pulmonary arteries. Assessment of the segmental and subsegmental branches is significantly limited by motion artifact. Aorta: The aorta demonstrates mild atherosclerotic calcification. There is no thoracic aortic aneurysm or evidence of dissection. Lungs: Motion artifact limits the assessment of the fine detail of the lungs. There is volume loss and compressive atelectasis in bilateral lower lobes, the right middle lobe and inferior lingula. There is a suggestion of interlobular septal thickening in both lungs. Pleural space: There are moderate sized bilateral pleural effusions, right slightly larger than left. Heart: The heart is enlarged. There is particular enlargement of the left atrium. There is mild atherosclerotic calcification of the coronary arteries. Mediastinum: A moderate sized hiatal hernia is present. Gallbladder and bile ducts: Calcified gallstones are noted in the partially visualized gallbladder. Lymph nodes: There are nonspecific enlarged paratracheal lymph nodes. Bones/joints: No suspicious osseous lesions. No acute fractures or dislocations. Soft tissues: Unremarkable. IMPRESSION: 1. Moderate bilateral pleural effusions with associated compressive atelectasis in both lungs. 2. No thoracic aortic aneurysm or evidence of dissection. 3. No central pulmonary emboli, but assessment of the more peripheral branches is limited by motion artifact. 4. Probable interlobular septal thickening, which may be due to pulmonary edema, but assessment is limited by motion. 5. Moderate size hiatal hernia. Electronically signed by: Regina Martinez On 01/17/2019 07:55:39 AM
[2019-01-17] MEDS ORDERED: FUROSEMIDE 100 MG/10 ML VIAL (J1940) IV ONE (08:00)
--- NOTE | 2019-01-17 08:02 | REP ---
Clinical: Shortness of breath. Comparison: 01/10/2019. Findings: Perihilar and lower lobe opacities consistent with elements of air space disease and pleural effusions as well as pulmonary vascular congestion with cephalization and interstitial edema most compatible with CHF. Findings are unchanged. No pneumothorax. Skeletal structures grossly intact. Impression: Findings most compatible with CHF and differential diagnosis less likely includes multifocal pneumonia and effusions. Electronically Signed by Devang Stewart MD 01/17/2019 07:53 A
[2019-01-17] MEDS ORDERED: PANTOPRAZOLE 40MG INJ (PROTONIX) (C9113) IV SCH (09:00)
[2019-01-17 09:06] LABS: ABG BASE EXCESS -5.8 (-2.0-2.0); ABG HCO3 19.6 MEQ/L (22.0-26.0); ABG O2 SATURATION 90.2 % (95.0-99.0); ABG PARTIAL PRESSURE O2 66.2 mmHg (75.0-100.0); ABG STANDARD HCO3 19.6 MEQ/L (22.0-26.0); ABG TOTAL CO2 20.8 MEQ/L (23.0-31.0)
[2019-01-17] MEDS ORDERED: NOREPINEPHRINE BITARTRATE 8 MG in D5W 492 ML IV SCH (10:57)
[2019-01-17] MEDS ORDERED: PROPOFOL 1,000 MG in APPROPRIATE DILUENT 1 EA IV SCH (10:57)
[2019-01-17 11:08] LABS: PH BODY FLUID 7.611 UNITS (NOT ESTABLISHED); SOURCE, BODY FLUID pH PLEURAL
[2019-01-17] MEDS ORDERED: DEXTROSE 50% 50 ML SYRINGE IV PRN (11:15)
[2019-01-17] MEDS ORDERED: GLUCOSE 4 GM CHEW TABLET PO PRN (11:15)
[2019-01-17] MEDS ORDERED: GLUCAGON FOR INJ 1 MG VIAL (J1610) SC PRN (11:15)
[2019-01-17 11:39] LABS: APPEARANCE, BODY FLUID HAZY (CLEAR); PLEURAL FL COLOR PALE YELLOW (COLORLESS); SOURCE, BODY FLUID PLEURAL
[2019-01-17 11:54] LABS: AMYLASE, BODY FLUID 11 U/L (NOT ESTABLISHED); CHOLESTEROL, BODY FLUID < 50 MG/DL (NOT ESTABLISHED); LDH, BODY FLUID 53 U/L (NOT ESTABLISHED); SOURCE, BODY FLUID ALBUMIN PLEURAL; SOURCE, BODY FLUID AMYLASE PLEURAL; SOURCE, BODY FLUID CHOL PLEURAL; SOURCE, BODY FLUID GLUCOSE PLEURAL; SOURCE, BODY FLUID LDH PLEURAL; SOURCE, BODY FLUID TOT PROTEIN PLEURAL; SOURCE, BODY FLUID TRIG PLEURAL; TOTAL PROTEIN, BODY FLUID 0.9 G/DL (NOT ESTABLISHED); TRIGLYCERIDE, BODY FLUID 11 MG/DL (NOT ESTABLISHED)
[2019-01-17] MEDS ORDERED: IPRATROPIUM 0.5MG/ALBUTEROL 2.5MG INH SOL UD 3ML (DUONEB)(J7620) NEB SCH (12:00)
[2019-01-17 12:17] LABS: ALBUMIN 3.4 GM/DL (3.2-5.2)
[2019-01-17 13:00] VITALS: BP 129/72
--- NOTE | 2019-01-17 13:23 | HPE ---
DATE OF ADMISSION: 01/17/2019 CHIEF COMPLAINT: Dyspnea at rest. HISTORY OF PRESENT ILLNESS: This is a 68-year-old white female patient of Dr. Luis Colmenares [facility] who presents to [facility] ER with sudden onset worsening dyspnea at rest since her discharge from [facility] yesterday on 01/16/2019. Her oxygen saturation was 50% on 2 liters when she was initially found by EMS. She was transferred to [facility] ER where she was found to be in hypoxic hypercarbic respiratory failure with initial pH of 7.23, PCo2 52, Po2 52, bicarbonate of 21, oxygen sat of 78% on 2 liters nasal cannula. She was placed on BiPAP 14/7 at 50% and within a 2 hours her gas corrected. She was also given furosemide 60 IV in the ER for which she diuresed 2 liters. The patient now states that her dyspnea is much improved. She denies any chest pain or palpitations, presyncope, syncope, cough nor congestion. She denies any recent nausea, vomiting or diarrhea. PAST MEDICAL HISTORY/HOSPITALIZATIONS: Last 01/07/2019 to 01/16/2019 for acute on chronic congestive heart failure (CHF) secondary to valvular mitral valve disease with acute kidney injury (ROLA). ILLNESSES: Severe mitral stenosis suspect from rheumatic valvular disease with trace PR. But moderate severe TR and severe pulmonary hypertension with RVSP of 65 and hypokinetic right ventricular free wall. LVEF 75% by TTE 12/31/[address] Rios. CHF recurrence secondary to severe mitral stenosis, chronic kidney disease stage 3 with baseline GFR of 35-40, diabetes mellitus type 2 insulin requiring with relatively poor control 07/23/2018 A1c of 9.9 and hypertension essential, hyperlipidemia with vitamin D deficiency, recurrent diverticulitis, GERD, hiatal hernia, history of nicotine addiction. Anemia microcytic secondary to iron deficiency. PAST SURGICAL HISTORY: Appendectomy, , bilateral cataract, colonoscopy done 01/2006 was reportedly normal. MEDICATIONS: Reconciled with pharmacy. Amlodipine 5 mg by mouth daily, Invokana 100 mg by mouth daily, carvedilol 12.5 twice a day, cholestyramine 4 grams by mouth twice a day, furosemide 40 mg by mouth daily, glimepiride 2 mg by mouth daily, insulin glargine 60 units subcu at bedtime, probiotic 1 tab by mouth by mouth twice a day, lansoprazole 30 mg by mouth daily, Tradjenta 5 mg by mouth daily, losartan 100 mg daily, potassium 10 mEq twice a day, pravastatin 40 mg at bedtime. ALLERGIES: No known drug allergies. REVIEW OF SYSTEMS: Constitutional: Roughly 15 pound weight loss in the last 2 months related to recurrent admissions, anorexia. No fevers, chills. HEENT: No epistaxis or hoarseness. Cardiovascular: No chest pain or palpitations. Pulmonary: Dyspnea as above. GI: No melena or hematochezia. : No dysuria or hematuria. Derm: No rash. Back: Chronic lumbar back pain. There is no paresthesia or weakness. PHYSICAL EXAMINATION: Temperature 98.2, 99, 20, Sat is 100% on BiPAP 14/7 at a rate of 8 at 50% FiO2. GENERAL: Patient is alert and oriented times three. In no respiratory distress with biPAP. HEENT: Normocephalic, atraumatic. Eyes are clear. NECK: Without adenopathy or thyromegaly. CARDIOVASCULAR: 6 cm of JVD regular rate and rhythm with occasional ectopy, murmur 2/6 at the apex. No S3, S4. RESPIRATORY: Decreased breath sounds bilateral, bibasilar course rales. No wheeze. ABDOMEN: Soft nontender and nondistended. Positive bowel sounds. No hepatosplenomegaly. EXTREMITIES: 1 mm pretibial pitting edema bilateral. NEURO: Nonfocal. INVESTIGATIONS: WBC 12.1, hemoglobin and hematocrit 10.1 and 34, MCV of 80, platelets of 322. Sodium 136, potassium 4.9, chloride 105, bicarbonate 24, BUN 27, creatinine 1.5, glucose 464, calcium 8.1, BNP of 3,880 with a CK of 48, troponin I 0.02, lactic acid 0.9. EKG 01/17/2019 6:35 showed normal sinus rhythm at 99 beats per minute with an occasional PVC. No repolarization abnormality. Chest x-rays shows moderate bilateral pleural effusions with moderate pulmonary vascular congestion with cephalization and interstitial edema. CT angiogram of the chest showed no obvious essential pulmonary emboli. No thoracic aortic aneurysm or dissection. Moderate bilateral pleural effusions with compressive atelectasis. Moderate hiatal hernia. ASSESSMENT: 68-year-old white female with acute hypoxic/hypercarbic respiratory failure secondary to severe mitral stenosis. This is in fact her third admission for this in the past month. PLAN: 1. Cardiovascular. We will admit the patient to [facility] ICU bed given she remains on BiPAP. She will probably be able to wean off this quite quickly after diuresis. Given this is her third admission for this and now this being the most severe degree of respiratory failure occurring within 24 hours of discharge the patient will need to be transferred for consideration for mitral valve replacement once stabilized. This was discussed with Dr. Hatch and agrees to the plan of care. For now we will continue her baseline Carvedilol and hold her amlodipine. Cautiously diurese to avoid significant reduction given her severe pulmonary hypertension. 2. Pulmonary biPAP as above. We will titrate oxygen to keep sats 88-92. She most likely has an underlying degree of obstructive lung disease +/- obstructive sleep apnea. Her oxygen saturations on room air in routine clinic visits have been in the mid 90's 3. Endo will hold her current Invokana and linagliptin regimen. We will drop her insulin glargine from [address] on a sliding scale of Lispro insulin before meals and at bedtime. At her last hospitalization she did have mild hypoglycemia. 4. DVT prophylaxis. We will place her on heparin subcu three times a day. 5. Renal. We will follow her GFR and electrolytes closely to avoid over diuresis and ROLA like she had at her last hospitalization.
--- NOTE | 2019-01-17 13:44 | RO ---
DATE OF PROCEDURE: 01/17/2019 PROCEDURE: Right therapeutic thoracentesis under ultrasound guidance. DIAGNOSIS: Large bilateral pleural effusions. POSTPROCEDURE DIAGNOSIS: Large bilateral pleural effusions. PROCEDURALIST: Dr. Hatch HOLE DIGGER TRUCK DRIVER: Dr. Soria. COMPLICATIONS: No observed complications. MEDICATION: 1% lidocaine. A total of 5 mL down to the level of the pleura. DESCRIPTION OF PROCEDURE: After informed consent was signed and placed in the chart, the patient was placed in the sitting position. The right posterior thorax was ultrasounded the largest fluid collection was marked. Time-out was performed with two patient identifiers identifying correct site, correct procedure. The skin was prepped with chlorhexidine and a sterile barrier precaution was placed over the site. The needle was then introduced subcutaneously 1% lidocaine was injected down to the level of the pleura. Upon entering the pleura there was return of clear yellow fluid. The needle was removed and a ricarda in the skin was made in the narrow trocar was advanced into the pleural space with return of again yellow fluid. The catheter was advanced over the trocar and trocar was removed. Catheter was then placed a manual suction. A total of 2060 mL of fluid returned. This was stopped in order to prevent re-expansion pulmonary edema. There is likely more fluid available. The patient had minimal coughing but tolerated the procedure well. The catheter was then removed under exhalation and a bandage was placed over the site. There are no observed complications.
[2019-01-17] MEDS: FERROUS SULFATE 325MG TAB PO SCH (13:49)
[2019-01-17] MEDS: CARVedilol 12.5 MG TAB PO SCH ×2 (13:49→20:07)
[2019-01-17] MEDS: LOSARTAN 25 MG TAB PO SCH ×2 (13:50→20:06)
[2019-01-17] MEDS: PANTOPRAZOLE 40MG TAB (PROTONIX) PO SCH (13:50)
[2019-01-17] MEDS: FUROSEMIDE 40 MG/4 ML VIAL (J1940) IV SCH ×3 (13:51→23:55)
[2019-01-17] MEDS: HumaLOG INSULIN (NovoLOG) PER UNIT SC SCH ×3 (13:51→20:52)
[2019-01-17] MEDS ORDERED: HEPARIN SOD (PORCINE) 5000 UNITS/ML VIAL SC SCH (14:00)
--- NOTE | 2019-01-17 14:16 | CCN ---
DATE: 01/17/2019 I was called by the emergency room physician for consultation on Autumn Kuo who is a 68-year-old female with known recent exacerbation of heart failure likely secondary to severe mitral stenosis who presented to the emergency room just days after her last hospitalization with increased shortness of breath and severe hypoxia. Apparently, they had difficulty getting any significant improvement in her oxygen saturation, therefore, she was placed on bilevel noninvasive therapy almost immediately. There was also evidence of hypercarbia on her initial blood gas. On my arrival to the emergency room, the patient was sleeping with bilevel noninvasive therapy with tidal volumes averaging mid 400s. She was able to speak in full sentences. She states that she simply felt more short of breath since the time of her discharge. She had no chest discomfort. The interview was limited due to noninvasive therapy. Past medical history was obtained from the chart which includes: 1. diastolic dysfunction with severe mitral stenosis. 2. Hypertension. 3. Diabetes. 4. Chronic kidney disease. 5. Hyperlipidemia. 6. Vitamin D deficiency. 7. History of recurrent diverticulitis. 8. Gastroesophageal reflux. 9. History of hiatal hernia. 10. History of nicotine use. 11. Anemia from iron deficiency. 12. Appendectomy. Physical Examination: Temperature is 98.3, pulse is 99, respiratory rate of 20, blood pressure is 141/93 with a mean arterial pressure 109, and oxygen saturation at that point in time on bilevel noninvasive therapy with an FIO2 of 0.6 was 98%. However, on removing bilevel oxygen, saturations dropped to the mid 80s. Even with additional oxygen supplementation, the maximum oxygen saturation was 87%. General: Awake, alert, oriented, able to answer the short questions. HEENT: Sclerae clear and anicteric. Pupils equal and reactive to light. Mucous membranes were moist. Tongue was midline. Very hirsuit. Neck is supple. There was elevated jugular venous pulse (JVP) bilaterally to the angle of the jaw. Carotids had some variation in intensity, but I did not auscultate any bruit. Cardiovascular: JVP as mentioned above. Mostly regular S1-S2 with frequent ectopy. There was a grade 2 diastolic murmur that radiated to the apex. There is systemic edema as outlined below. Pulmonary: Decreased breath sounds bilateral. Dullness to percussion more than 2/3 of the bases bilaterally. I do not auscultate any wheeze. I did not auscultate any rhonchi. There is no accessory muscle use. Abdomen soft, nontender, nondistended. There are normoactive bowel sounds. No discernible hepatosplenomegaly, masses or hernia. Extremities: There is pitting edema bilaterally to the proximal pre tibia. There is no cyanosis or clubbing. Skin is pale without rashes, jaundice or bruising. Neurologic: No unilateral weakness. No evidence of tremor. Fairly good strength bilaterally. No evidence of asymmetric weakness. Laboratory evaluation showed a white blood cell count of 12.1, hemoglobin of 10.1, hematocrit of 34, and platelet count of 322. Sodium is 136, potassium 4.9, chloride 105, bicarb of 24 with BUN of 27, creatinine 1.45 and a fasting glucose of 461. Calcium was 8.1. BNP was elevated at 3880 compared to her last BNP measured on 01/12/2019 of 4584. Troponin was unremarkable at 0.02. Initial arterial blood gas shows a pH of 7.23, pCO2 of 52, and pAO2 of 52. The second arterial blood gas that was taken while on noninvasive therapy prior to thoracentesis shows a pH of 7.33, pCO2 of [address] angio was performed due to her elevated D-dimer on recent hospitalization and reported asymmetric lower extremity swelling. This showed large bilateral effusions, right greater than left. There is some endotracheal mucus. There is a fairly decent sized hiatal hernia. There is no evidence of pneumonia or mass. There is cardiomegaly and volume overload. IMPRESSION: 1. Acute hypercarbic hypoxic respiratory failure likely from volume overload. At this point in time, I have recommended therapeutic thoracentesis and I believe this will help with restriction of the lungs. Will start with unilateral thoracentesis. The patient was consented. The patient understands the risks of bleeding, pneumothorax, injury to surrounding structures, chest pain and coughing. Consent was signed at the bedside. She may do well without noninvasive ventilation. Will therefore monitor in the unit in case this is required The most obvious cause of her hypoxia is volume overload. I discussed the plan with the primary physician who plans on demising her clinical state and then referring for possible mitral valve replacement. 2. Hypoalbuminemia. 3. Bilateral pleural effusions as above. 4. Chronic kidney disease. The patient did receive contrast today with attempts at diuresis. Will need to monitor this closely. 5. Diabetes with hyperglycemia. Management per primary team.
[2019-01-17 16:00] VITALS: BP 94/54
[2019-01-17 18:00] VITALS: BP 106/56
[2019-01-17 18:37] LABS: ALBUMIN 3.1 GM/DL (3.2-5.2); CALCIUM LEVEL 8.6 MG/DL (8.8-10.2); CREATININE FOR GFR 1.52 MG/DL (0.55-1.30); GLOMERULAR FILTRATION RATE 36.2 (>45); PHOSPHORUS LEVEL 2.6 MG/DL (2.5-4.9); POTASSIUM SERUM 3.9 MEQ/L (3.5-5.1)
--- NOTE | 2019-01-17 19:27 | ECGEPIP ---
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
--- NOTE | 2019-01-17 19:29 | ECGEPIP ---
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
[2019-01-17 20:00] VITALS: BP 116/65
[2019-01-17] MEDS: PRAVASTATIN 20 MG TAB PO SCH (20:07)
[2019-01-17] MEDS: LEVEMIR (INSULIN DETEMIR) 1 UNITS/0.01ML SC SCH (20:52)
[2019-01-17] MEDS: ACETAMINOPHEN TAB 650MG DOSE (2X325MG) PO PRN (20:52)
[2019-01-17] MEDS ORDERED: CHLORHEXIDINE GLUCONATE 0.12 % 15ML UDC (PERIDEX ORAL RINSE) MT SCH (21:00)
[2019-01-18] VITALS (13 sets, daily range): BP systolic 98–126; BP diastolic 58–66; O2SAT 94–96
[2019-01-18 05:22] LABS: HEMATOCRIT 28.4 % (36.0-47.0); HEMOGLOBIN 8.5 g/dl (12.0-15.5); MEAN CORPUSCULAR HEMOGLOBIN 22.9 pg (27.0-33.0); MEAN CORPUSCULAR HGB CONC 29.9 g/dl (32.0-36.5); MEAN CORPUSCULAR VOLUME 76.5 fl (80.0-96.0); PLATELET COUNT, AUTOMATED 266 10^3/uL (150-450); RED BLOOD COUNT 3.71 10^6/uL (4.00-5.40); WHITE BLOOD COUNT 7.2 10^3/uL (4.0-10.0)
[2019-01-18] MEDS: FUROSEMIDE 40 MG/4 ML VIAL (J1940) IV SCH ×4 (05:54→23:54)
[2019-01-18 05:58] LABS: ALBUMIN 2.7 GM/DL (3.2-5.2); BILIRUBIN,TOTAL 1.3 MG/DL (0.2-1.0); CALCIUM LEVEL 8.4 MG/DL (8.8-10.2); CREATININE FOR GFR 1.46 MG/DL (0.55-1.30); GLOMERULAR FILTRATION RATE 37.9 (>45); MAGNESIUM LEVEL 1.2 MG/DL (1.8-2.4); POTASSIUM SERUM 3.3 MEQ/L (3.5-5.1); TOTAL PROTEIN 5.4 GM/DL (6.4-8.2); TROPONIN I 0.03 NG/ML (< 0.10)
[2019-01-18] MEDS: LOSARTAN 25 MG TAB PO SCH (08:02)
[2019-01-18] MEDS: FERROUS SULFATE 325MG TAB PO SCH (08:02)
[2019-01-18] MEDS: CARVedilol 12.5 MG TAB PO SCH ×2 (08:02→20:25)
[2019-01-18] MEDS: HumaLOG INSULIN (NovoLOG) PER UNIT SC SCH ×4 (08:03→20:24)
[2019-01-18] MEDS: PANTOPRAZOLE 40MG TAB (PROTONIX) PO SCH (08:03)
--- NOTE | 2019-01-18 08:59 | REP ---
Clinical: Respiratory failure. Comparison: 01/17/2019. Findings: Large left pleural effusion has increased from prior examination while the right pleural effusion has improved. Underlying chronic interstitial changes and elements of COPD cannot be excluded. Cardiomegaly suggested and pericardial effusion cannot be excluded as well. Skeletal structures are intact. No pneumothorax. Impression: Large left pleural effusion increased from prior examination. Cannot exclude pericardial effusion. Electronically Signed by Devang Stewart MD 01/18/2019 08:51 A
[2019-01-18] MEDS: ACETAMINOPHEN TAB 650MG DOSE (2X325MG) PO PRN (09:02)
[2019-01-18] MEDS ORDERED: POTASSIUM CHLORIDE 10 MEQ SR TABLET PO ONE ×2 (10:00→12:00)
[2019-01-18] MEDS ORDERED: MAG SULF 1GM/100ML (MAG RUN) 1 GM in APPROPRIATE DILUENT 1 EA IV ONE (10:00)
--- NOTE | 2019-01-18 14:01 | IPNPDOC ---
Subjective Date Seen The patient was seen on 01/18/19. Subjective Chief Complaint/HPI dyspnea close to baseline Eyes: Denies: Pain ENT: Denies: Head Aches Skin: Denies: Rash Pulmonary: Denies: Dyspnea Cardiovascular: Denies: Chest Pain Gastrointestinal: Denies: Nausea Objective Physical Examination General Exam: Positive: Alert, No Acute Distress Neck Exam: Positive: JVD (8 cm) Chest Exam: Positive: Rales, Diminished Heart Exam: Positive: Rate Normal, Murmurs (diastolic snap/rumble, loud S1) Abdomen Exam: Positive: Normal bowel sounds Extremity Exam: Positive: Edema (B 2mm PTPE) Assessment /Plan Problems (1) CHF due to valvular disease Problem Text: net - 4960 since 01/17 admission (including 01/17 R tesis of 2059)/1800 FR/JUVENAL 01/18 HD amlo 5 and los 100 held given SBP 100-110 c persistent decompensation; watch preload reduction given severe MS/PHTHN/hypokinetic R ventricle; plan tx to [facility] 01/20 for catherization +/- MV annuloplasty vs replacement (this will be 3rd admission in last 4W for recurrent CHF, between 2nd and 3rd admission, patient was home for <24H and came back requiring BIPAP for respiratory support) (2) CKD (chronic kidney disease) stage 3, GFR 30-59 ml/min Status: Chronic Problem Text: at baseline cr ~1.5 (3) DM2 (diabetes mellitus, type 2) Status: Chronic Problem Text: HD: glar 60 c anahi 5, canda 100, glim 2 BG mid 100s on det 40 (4) Severe mitral valve stenosis Status: Chronic Response to Treatment: Uncontrolled Problem Text: as per CHF 12/31/18 TTE Rios: COMMENTS: Normal sinus rhythm with out intraventricular conduction disturbance. Isolated PVCs. M-mode and two-dimensional echocardiography was performed with pulsed, continuous wave, color flow and tissue Doppler studies. Mild concentric left ventricle hypertrophy with septal wall motion abnormality believed to be due to right ventricular pressure overload yet preserved global resting systolic function. At least moderately dilated left atrium. Unable to estimate mean left atrial pressure in light of intrinsic mitral valve disorder. Prominently dilated right heart chambers with hypokinesis of the right ventricular free wall and Doppler evidence of severe pulmonary hypertension. IVC size upper limits of normal with reduced respiratory collapse suggestive an elevated central venous pressure. Aortic valvular sclerosis without functional valvular abnormality. Normal aortic root size. 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 Normal appearing tricuspid valve with moderately severe insufficiency. No apparent intracardiac mass. Minuscule posterior pericardial effusion. Based on the above test findings we would recommend consideration of cardiac catheterization with view to mitral valvuloplasty versus replacement. DD: Pravin Rios MD, [facility] 12/31/181821 04 DS: KELLY 12/31/181942 (5) Anemia Status: Chronic Problem Text: 2 CKD/Fe deficiency anemia 02/18 8.5, HO stools, + Fe sucrose chronic hgb 9s 12/27/18 % sat 7 (6) Respiratory failure Status: Acute Response to Treatment: Improving Problem Text: hypoxic/hypercarbic remains off BIPAP since 01/17/19 Plan/VTE VTE Prophylaxis Ordered?: Yes VS, I&O, 24H, Fishbone Vital Signs/I&O Vital Signs Date Time Temp Pulse Resp B/P (MAP) Pulse Ox O2 Delivery O2 Flow Rate FiO2 01/18/19 12:00 3.0 01/18/19 12:00 98.2 80 20 103/58 (73) 95 01/17/19 11:23 NIPPV (BIPAP/CPAP) 01/17/19 09:06 50 I&O- Last 24 Hours up to 6 AM 01/18/19 06:00 Intake Total 320 ml Output Total 2350 ml Balance -2030 ml Laboratory Data 24H LABS Laboratory Tests 2 01/17/19 17:19: Bedside Glucose (Misc Panel) 373H 01/17/19 17:53: Blood Urea Nitrogen 28H, Creatinine 1.52H, Sodium Level 140, Potassium Level 3.9#, Chloride Level 106, Carbon Dioxide Level 25, Anion Gap 9, Glomerular Filtration Rate 36.2L, Calcium Level 8.6L, Phosphorus Level 2.6, Albumin 3.1L 01/17/19 20:49: Bedside Glucose (Misc Panel) 196H 01/18/19 05:11: Blood Urea Nitrogen 30H, Creatinine 1.46H, Sodium Level 143, Potassium Level 3.3L, Chloride Level 108H, Carbon Dioxide Level 28, Anion Gap 7L, Glomerular Filtration Rate 37.9L, Calcium Level 8.4L, Albumin 2.7L, Nucleated Red Blood Cells % (auto) 0.0, Aspartate Amino Transf (AST/SGOT) 9, Alanine Aminotrans ferase (ALT/SGPT) 8L, Alkaline Phosphatase 64, Total Bilirubin 1.3H, Total Protein 5.4L, Magnesium Level 1.2L, Troponin I 0.03#, Albumin/Globulin Ratio 1.00 01/18/19 07:14: Bedside Glucose (Misc Panel) 141H 01/18/19 11:34: Bedside Glucose (Misc Panel) 282H CBC/BMP Laboratory Tests 01/17/19 17:53 Anion Gap 9 01/18/19 05:11 Red Blood Count 3.71 L, Mean Corpuscular Volume 76.5 L, Mean Corpuscular Hemoglobin 22.9 L, Mean Corpuscular Hemoglobin Concent 29.9 L, Red Cell Distribution Width 18.7 H, Calcium Level 8.4 L, Aspartate Amino Transf (AST/SGOT) 9, Alanine Aminotransferase (ALT/SGPT) 8 L, Alkaline Phosphatase 64, Total Bilirubin 1.3 H, Total Protein 5.4 L, Albumin 2.7 L Microbiology Microbiology 01/17/19 Blood Culture - Preliminary, Resulted No growth after 24 hours . All specim... 01/17/19 Blood Culture - Preliminary, Resulted No growth after 24 hours . All specim... 01/17/19 Acid Fast Stain, Received Pending 01/17/19 Mycobacterial Culture, Received Pending 01/17/19 Fungal Smear, Received Pending 01/17/19 Fungal Culture, Received Pending 01/17/19 Gram Stain - Final, Resulted 01/17/19 Body Fluid Culture, Resulted Pending 01/17/19 Anaerobic Culture, Resulted Pending 01/17/19 Respiratory Virus Panel (PCR) (BRIANNA) - Final, Complete Jameson Monroy M.D. January 18, 2019 14:01
[2019-01-18] MEDS ORDERED: IRON SUCROSE 100MG 5ML VIAL (J1756 PER 1MG) IV SCH (14:15)
[2019-01-18] MEDS ORDERED: IRON SUCROSE 25 MG in NS 50 ML IV ONE (15:00)
[2019-01-18] MEDS ORDERED: IRON SUCROSE 225 MG in NS 250 ML IV ONE (16:00)
[2019-01-18] MEDS: LEVEMIR (INSULIN DETEMIR) 1 UNITS/0.01ML SC SCH (20:24)
[2019-01-18] MEDS: PRAVASTATIN 20 MG TAB PO SCH (20:24)
[2019-01-18] MEDS: POLYVINYL ALCOHOL OPHTH SOLN 15 ML(LIQUITEARS) OU PRN (20:38)
[2019-01-19] VITALS (23 sets, daily range): BP systolic 113–123; BP diastolic 57–69; O2SAT 89–99
[2019-01-19 05:58] LABS: BASO # 0.1 10^3/uL (0.0-0.2); BASO % 0.7 % (0.0-1.0); HEMATOCRIT 30.7 % (36.0-47.0); HEMOGLOBIN 9.2 g/dl (12.0-15.5); MEAN CORPUSCULAR HEMOGLOBIN 23.7 pg (27.0-33.0); MEAN CORPUSCULAR VOLUME 79.1 fl (80.0-96.0); MONO # 0.7 10^3/uL (0.0-0.8); MONO % 7.5 % (0.0-5.0); NEUTROPHILS # 7.1 10^3/uL (1.8-7.7); NEUTROPHILS % 80.3 % (36.0-66.0); PLATELET COUNT, AUTOMATED 273 10^3/uL (150-450); RED BLOOD COUNT 3.88 10^6/uL (4.00-5.40); WHITE BLOOD COUNT 8.9 10^3/uL (4.0-10.0)
[2019-01-19] MEDS: FUROSEMIDE 40 MG/4 ML VIAL (J1940) IV SCH (06:03)
[2019-01-19] MEDS: HumaLOG INSULIN (NovoLOG) PER UNIT SC SCH ×4 (07:30→20:46)
[2019-01-19 08:44] LABS: ALBUMIN 2.7 GM/DL (3.2-5.2); BLOOD UREA NITROGEN 30 MG/DL (7-18); CALCIUM LEVEL 7.5 MG/DL (8.8-10.2); CARBON DIOXIDE LEVEL 29 MEQ/L (21-32); CHLORIDE LEVEL 107 MEQ/L (98-107); CREATININE FOR GFR 1.59 MG/DL (0.55-1.30); GLOMERULAR FILTRATION RATE 34.4 (>45); GLUCOSE, FASTING 151 MG/DL (70-100); MAGNESIUM LEVEL 1.5 MG/DL (1.8-2.4); PHOSPHORUS LEVEL 3.6 MG/DL (2.5-4.9); POTASSIUM SERUM 3.5 MEQ/L (3.5-5.1); SODIUM LEVEL 144 MEQ/L (136-145); TOTAL PROTEIN 5.4 GM/DL (6.4-8.2)
[2019-01-19] MEDS: PANTOPRAZOLE 40MG TAB (PROTONIX) PO SCH (08:59)
[2019-01-19] MEDS: CARVedilol 12.5 MG TAB PO SCH ×2 (08:59→20:45)
[2019-01-19] MEDS: FERROUS SULFATE 325MG TAB PO SCH (08:59)
[2019-01-19 09:16] LABS: VITAMIN B12 LEVEL 471 PG/ML (247-911)
--- NOTE | 2019-01-19 10:00 | IPNPDOC ---
Subjective Date Seen The patient was seen on 01/19/19. Subjective Chief Complaint/HPI Feels well. No SOB. Constitutional: Denies: Chills Pulmonary: Denies: Dyspnea, Cough Cardiovascular: Denies: Chest Pain, Palpitations Gastrointestinal: Denies: Nausea, Vomiting, Abdominal Pain, Diarrhea, Constipation Objective Physical Examination General Exam: Positive: Alert, No Acute Distress Neck Exam: Positive: JVD (8 cm) Chest Exam: Positive: Diminished; Negative: Rales, Rhonchi, Wheezing Heart Exam: Positive: Rate Normal, Regular Rhythm, Murmurs (diastolic snap/rumble, loud S1) Abdomen Exam: Positive: Normal bowel sounds Extremity Exam: Positive: Edema (1+ edema right > Left) Assessment /Plan Problems (1) CHF due to valvular disease Problem Text: net - 6090 since 01/17 admission (including 01/17 R tesis of 2059) I will back of on the diuretic for now as she seems much better compensated. Monitor BP and Rf Plan is to arrange transfer to [facility] for catherization +/- MV annuloplasty vs replacement 01/18 HD amlo 5 and los 100 held given SBP 100-110 c persistent decompensation; watch preload reduction given severe MS/PHTHN/hypokinetic R ventricle; plan tx to [facility] 01/20 for catherization +/- MV annuloplasty vs replacement (this will be 3rd admission in last 4W for recurrent CHF, between 2nd and 3rd admission, patient was home for <24H and came back requiring BIPAP for respiratory support) (2) Severe mitral valve stenosis Status: Chronic Response to Treatment: Uncontrolled Problem Text: as per [facility] 12/31/18 TTE Gabriel: COMMENTS: Normal sinus rhythm with out intraventricular conduction disturbance. Isolated PVCs. M-mode and two-dimensional echocardiography was performed with pulsed, continuous wave, color flow and tissue Doppler studies. Mild concentric left ventricle hypertrophy with septal wall motion abnormality believed to be due to right ventricular pressure overload yet preserved global resting systolic function. At least moderately dilated left atrium. Unable to estimate mean left atrial pressure in light of intrinsic mitral valve disorder. Prominently dilated right heart chambers with hypokinesis of the right ventricular free wall and Doppler evidence of severe pulmonary hypertension. IVC size upper limits of normal with reduced respiratory collapse suggestive an elevated central venous pressure. Aortic valvular sclerosis without functional valvular abnormality. Normal aortic root size. 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 Normal appearing tricuspid valve with moderately severe insufficiency. No apparent intracardiac mass. Minuscule posterior pericardial effusion. Based on the above test findings we would recommend consideration of cardiac catheterization with view to mitral valvuloplasty versus replacement. DD: Pravin Rios MD, [facility] 12/31/181821 04 DS: KELLY 12/31/181942 (3) CKD (chronic kidney disease) stage 3, GFR 30-59 ml/min Status: Chronic Problem Text: at baseline cr ~1.5 (4) DM2 (diabetes mellitus, type 2) Status: Chronic Problem Text: HD: glar 60 c anahi 5, canda 100, glim 2 BG mid 100s on det 40 (5) Anemia Status: Chronic Problem Text: 2 CKD/Fe deficiency anemia 02/18 8.5, HO stools, + Fe sucrose chronic hgb 9s 12/27/18 % sat 7 (6) Respiratory failure Status: Acute Response to Treatment: Improving Problem Text: hypoxic/hypercarbic remains off BIPAP since 01/17/19 Plan/VTE VTE Prophylaxis Ordered?: Yes Plan Patient seen and examined. Case reviewed with RPA who documented encounter. Discussed with cable assembler, Dr. Kelly, who will see patient and help facilitate transfer to [place] for cardiac cath and intervention for her mitral stenosis. VS, I&O, 24H, Fishbone Vital Signs/I&O Vital Signs Date Time Temp Pulse Resp B/P (MAP) Pulse Ox O2 Delivery O2 Flow Rate FiO2 01/19/19 08:59 64 119/59 01/19/19 08:00 97.2 18 96 8.0 01/19/19 04:00 Nasal Cannula 01/17/19 09:06 50 I&O- Last 24 Hours up to 6 AM 01/19/19 06:00 Intake Total 750 ml Output Total 2750 ml Balance -2000 ml Laboratory Data 24H LABS Laboratory Tests 2 01/18/19 11:34: Bedside Glucose (Misc Panel) 282H 01/18/19 17:13: Bedside Glucose (Misc Panel) 327H 01/18/19 20:18: Bedside Glucose (Misc Panel) 279H 01/19/19 05:19: Immature Granulocyte % (Auto) 0.5, White Blood Count 8.9, Red Blood Count 3.88L, Hemoglobin 9.2L, Hematocrit 30.7L, Mean Corpuscular Volume 79.1L, Mean Corpuscular Hemoglobin 23.7L, Mean Corpuscular Hemoglobin Concent 30.0L, Red Cell Distribution Width 19.3H, Platelet Count 273, Neutrophils (%) (Auto) 80.3H, Lymphocytes (%) (Auto) 11.0L, Monocytes (%) (Auto) 7.5H, Eosinophils (%) (Auto) 0.0, Basophils (%) (Auto) 0.7, Neutrophils # (Auto) 7.1, Lymphocytes # (Auto) 1.0L, Monocytes # (Auto) 0.7, Eosinophils # (Auto) 0.0, Basophils # (Auto) 0.1, Nucleated Red Blood Cells % (auto) 0.0, Blood Urea Nitrogen 30H, Creatinine 1.59H, Sodium Level 144, Potassium Level 3.5, Chloride Level 107, Carbon Dioxide Level 29, Anion Gap 8, Glomerular Filtration Rate 34.4L, Calcium Level 7.5L, Phosphorus Level 3.6#, Magnesium Level 1.5L, Total Protein (PEP) 5.4L, Albumin 2.7L, Vitamin B12 Level 471 CBC/BMP Laboratory Tests 01/19/19 05:19 Red Blood Count 3.88 L, Mean Corpuscular Volume 79.1 L, Mean Corpuscular Hemoglobin 23.7 L, Mean Corpuscular Hemoglobin Concent 30.0 L, Red Cell Distribution Width 19.3 H, Neutrophils (%) (Auto) 80.3 H, Lymphocytes (%) (Auto) 11.0 L, Monocytes (%) (Auto) 7.5 H, Eosinophils (%) (Auto) 0.0, Basophils (%) (Auto) 0.7, Neutrophils # (Auto) 7.1, Lymphocytes # (Auto) 1.0 L, Monocytes # (Auto) 0.7, Eosinophils # (Auto) 0.0, Basophils # (Auto) 0.1, Anion Gap 8 Microbiology Microbiology 01/17/19 Blood Culture - Preliminary, Resulted No Growth after 48 hours. All Specime... 01/17/19 Blood Culture - Preliminary, Resulted No Growth after 48 hours. All Specime... 01/17/19 Acid Fast Stain, Received Pending 01/17/19 Mycobacterial Culture, Received Pending 01/17/19 Fungal Smear, Received Pending 01/17/19 Fungal Culture, Received Pending 01/17/19 Gram Stain - Final, Complete 01/17/19 Body Fluid Culture - Final, Complete 01/17/19 Anaerobic Culture - Final, Complete 01/17/19 Respiratory Virus Panel (PCR) (BRIANNA) - Final, Complete GHADA TRISTAN PA-C January 19, 2019 10:00 Yony Ward M.D. January 19, 2019 15:00
[2019-01-19] MEDS ORDERED: POTASSIUM CHLORIDE 10 MEQ SR TABLET PO ONE (11:00)
[2019-01-19] MEDS ORDERED: MAG SULF 1GM/100ML (MAG RUN) 1 GM in APPROPRIATE DILUENT 1 EA IV ONE (11:00)
--- NOTE | 2019-01-19 17:13 | CR ---
DATE OF CONSULTATION: 01/19/2019 REFERRING PROVIDER: Dr. Ward PRIMARY CARE PROVIDER: Dr. Luis Colmenares REASON FOR CONSULTATION: Heart failure, mitral stenosis. HISTORY OF PRESENT ILLNESS: 68-year-old woman on her third hospitalization this month at [facility]. The first hospitalization was the beginning of this month from December 28 to January 01, 2019, and at that time, she was treated for a acute viral gastroenteritis. A CT scan of the abdomen done at that time was benign. She then was discharged home and came back on 01/07/2019 with gastrointestinal symptoms, worsening kidney function, electrolyte abnormalities. CT of the abdomen done at that time showed mild diverticulosis, and she was treated with IV fluids and IV antibiotics. She also was given cholestyramine to help with her loose stools. Stool guaiac then was negative. Her renal function has returned to baseline with hydration and her electrolyte abnormalities were corrected. Because of pedal edema, she had a Doppler of the legs done prior to her discharge on 01/16/2019 and there was no deep vein thrombosis (DVT). She was discharged home and then came back on 01/21/2019 with respiratory failure, hypoxemic. She was treated by pulmonary with BiPap. She was on treated also with IV diuretics and she responded quickly. On her first hospitalization in the hospital, she had an echocardiogram and it revealed probably severe mitral stenosis. The plan was to proceed with further cardiac workup as an outpatient, but in view of her recent hospitalization, I was called to see her and we tried to speed up the process. When I saw Mrs. Autumn Kuo on the floor, she was sitting up in bed in no acute distress at rest. She stated that pedal edema has improved significantly as well as shortness of breath. She denies any chest pain. She does complain of some fluttering in the chest at times on and off. She has no focal manifestation. She denies any nausea, vomiting, diarrhea, melena or hematemesis. She has no dysuria, pyuria, or hematuria. She has no focal manifestation. She has two EKGs this hospitalization and they revealed normal sinus rhythm. PAST MEDICAL HISTORY: She has a past medical history positive for hypertension, hyperlipidemia, diabetes mellitus, and this month she was treated for gastroenteritis and diverticulitis. She also was found earlier this month to have severe mitral stenosis by echocardiogram. She denies any history of atrial fibrillation, CVA or transient ischemic attack, coronary artery disease, myocardial infarction, rheumatic fever. She does have some underlying chronic kidney disease stage II to III. PAST SURGICAL HISTORY: Positive for bilateral cataract extraction, appendectomy, section. FAMILY HISTORY: Noncontributory. SOCIAL HISTORY: The patient denies any smoking, EtOH abuse or illicit drugs. ALLERGIES: She has no known drug allergies. MEDICATIONS AT HOME: - amlodipine 5 mg by mouth daily - Invokana 100 mg by mouth daily - carvedilol 12.5 mg by mouth twice a day - cholestyramine 4 grams by mouth twice a day - Lasix 40 mg by mouth daily - glimepiride 2 mg by mouth daily - insulin glargine 60 units subcutaneous at bedtime - lansoprazole 30 mg by mouth daily - Tradjenta 5 mg by mouth daily - losartan 100 mg by mouth daily - KCl 10 mEq by mouth twice a day - pravastatin 40 mg by mouth daily CURRENT MEDICATIONS: - Lasix 40 mg intravenous every 12 hours - Pravastatin 40 mg by mouth daily - artificial tears - Levemir 40 units subcutaneous - Humalog as directed - Tylenol 60 mg every 4 hours as needed for pain or fever - carvedilol 12.5 mg by mouth twice a day - pantoprazole 40 mg by mouth daily - ferrous sulfate 325 mg by mouth daily - D50 - glucose tablets - Glucagon as needed for hypoglycemic events PHYSICAL EXAMINATION: The patient is alert and oriented, in no acute distress at rest and her most recent vital signs reveal blood pressure of 118/75 with a pulse reported to vary between 96 and 100, respirations 18 and a maximum temperature is 97.2 degrees Fahrenheit with an oxygen saturation of 98% on 2 liters nasal cannula. HEAD: Atraumatic. Fundus examination was not done. NECK: Neck is supple and no jugular venous distention (JVD) appreciated. LUNGS: Reveal minimal crackles at the bases but no wheezing. HEART: Examination revealed irregular heart sounds without gallops. The point of maximum impulse (PMI) is not displaced. There is no rub. ABDOMEN: Unremarkable. EXTREMITIES: Trace bilateral lower leg edema. NEUROLOGIC EXAMINATION: Negative for focal deficit. LABORATORY DATA: Complete blood count (CBC) done today revealed a WBC of 8.9, hemoglobin 9.2, hematocrit 30.7 and platelets 273,000. On admission, hemoglobin/hematocrit were 10.1 and 33.8, respectively. Basic metabolic panel (BMP) revealed a sodium of 144, potassium 3.5, chloride 107, CO2 29, BUN 30, creatinine 1.59, GFR 34.4 and fasting glucose 151 with a calcium of 7.5. Serum magnesium is 1.5. On 01/18, serum magnesium was 1.2. Serum troponin was 0.02 and 0.03. ABG on admission revealed a pH of 7.25 with a pCO2 of 52.4 and a pO2 of 51.8. Upon rechecking it 2 to 3 hours later on BiPap, ABG revealed pH of 7.33 and pCO2 of 38 and PO2 of 66.2. Echocardiogram on admission 01/17/2019 at 6:35:06 revealed normal sinus rhythm at 99 beats per minute, low voltage QRS complexes noted in the limb leads and nonspecific ST-T abnormalities. Repeat EKG on the same day at 08:12:47 also revealed normal sinus rhythm with a slower heartbeat at 87 beats per minute, low voltage QRS complexes in the limb leads and left ventricular abnormality. Chest x-ray on 01/17/2019 revealed findings consistent with congestive failure. CT of the chest on admission 01/17/2019 revealed moderate bilateral pleural effusion associated with atelectasis in both lungs, no thoracic aneurysm or dissection and no pulmonary emboli. There are findings consistent with pulmonary edema. Moderate sized hiatal hernia also noted. Chest x-ray done on 01/18/2019 revealed large left pleural effusion, increased from prior examination on 01/17/2019. Right pleural effusion was thought to have improved. Chronic changes were noted and findings consistent with chronic obstructive pulmonary disease (COPD). Cardiomegaly could not be excluded. No pneumothorax. IMPRESSION: 1. Mitral stenosis, reported to be severe earlier this month and the patient was admitted on 01/17/2019 with pulmonary edema causing acute hypoxemic respiratory failure. She was treated with BiPap and diuretics. She is doing much better. Her chest x-ray revealed cardiomegaly, usually not seen in patients with mitral stenosis, and I will proceed with an echocardiogram for reassessment. We have discussed about mitral valve replacement, and she is in agreement if needed. Case will be discussed with the invasive team in [place]. I have noticed also her heart rate is irregular upon examination and I will have an EKG. She will be started on telemetry, she is at high risk to develop paroxysmal atrial fibrillation. 2. Status post acute hypoxemic respiratory failure secondary to pulmonary edema and that was managed with BiPap. 3. History of hypertension. We will continue current medications. 4. History of hyperlipidemia, on a statin. 5. History of diabetes mellitus, being addressed. 6. Chronic kidney disease stage III, this has been stable. I will cut back on the diuretics in anticipation of the cardiac catheterization. 7. Anemia. The patient had a recent negative stool guaiac. This may be related to her underlying kidney disease. She might benefit from GI workup if not done recently. 8. Electrolyte abnormalities, being addressed. Hypokalemia is now corrected. Her hypomagnesemia is improving. 9. Pleural effusion, bilaterally, enlarged. The patient had right therapeutic thoracentesis on 01/21/2019, and a total of 2 liters of fluid was removed. It was yellowish and clear. It was a pleasure to participate in the care of Mrs. Autumn Kuo for her underlying cardiac condition. I will continue to monitor along with you while in the hospital. At this present time, she appears to be stable.
[2019-01-19] MEDS: PRAVASTATIN 20 MG TAB PO SCH (20:45)
[2019-01-19] MEDS: LEVEMIR (INSULIN DETEMIR) 1 UNITS/0.01ML SC SCH (20:46)
--- NOTE | 2019-01-19 22:57 | ECGEPIP ---
[facility] Test Date: 2019-01-19 Pat Name: ANSON BENSON Department: Room: [place] [address] Gender: Female Script Editor: JOSEPH : 1950 Requested By: CONRADO PIPER Order Number: [id number] Reading MD: Conrado Piper Measurements Intervals [place] Rate: 88 P: 59 WV: 145 QRS: 45 QRSD: 83 T: 57 QT: 391 QTc: 473 Interpretive Statements SINUS RHYTHM WITH FREQUENT SUPRAVENTRICULAR PREMATURE COMPLEXES LOW QRS VOLTAGE IN EXTREMITY LEADS ABNORMAL RHYTHM ECG No remarkable changes but now isolated PACs and tall R waves in V1/V2 Prior on 01/17/19 at 8:12 and 6:35 Electronically Signed on 01-19-2019 22:56:49 EDT by Conrado Piper
[2019-01-20] VITALS (22 sets, daily range): BP systolic 108–123; BP diastolic 56–75; O2SAT 90–98
[2019-01-20] MEDS ORDERED: FUROSEMIDE 40 MG/4 ML VIAL (J1940) IV SCH
[2019-01-20] MEDS: HumaLOG INSULIN (NovoLOG) PER UNIT SC SCH ×4 (07:11→20:30)
--- NOTE | 2019-01-20 07:56 | IPNPDOC ---
Subjective Date Seen The patient was seen on 01/20/19. Subjective Chief Complaint/HPI Denies c/o today. Transfer to [facility] pending for MVR. Constitutional: Denies: Chills, Fever, Night Sweats Pulmonary: Denies: Dyspnea, Cough Cardiovascular: Denies: Chest Pain, Palpitations, Orthopnea, Paroxysmal Noc. Dyspnea, Lt Headedness Objective Physical Examination General Exam: Positive: Alert, No Acute Distress Neck Exam: Positive: JVD (8 cm) Chest Exam: Positive: Diminished; Negative: Rales, Rhonchi, Wheezing Heart Exam: Positive: Rate Normal, Regular Rhythm, Murmurs (diastolic snap/rumble, loud S1) Abdomen Exam: Positive: Normal bowel sounds Extremity Exam: Positive: Edema (1+ edema right > Left) Assessment /Plan Problems (1) CHF due to valvular disease Problem Text: 01/20/19: continues to [facility]. labs pending for today. net - 6090 since 01/17 admission (including 01/17 R tesis of 2059) I will back of on the diuretic for now as she seems much better compensated. Monitor BP and Rf Plan is to arrange transfer to [facility] for catherization +/- MV annuloplasty vs replacement 01/18 HD amlo 5 and los 100 held given SBP 100-110 c persistent decompensation; watch preload reduction given severe MS/PHTHN/hypokinetic R ventricle; plan tx to [facility] 01/20 for catherization +/- MV annuloplasty vs replacement (this will be 3rd admission in last 4W for recurrent CHF, between 2nd and 3rd admission, patient was home for <24H and came back requiring BIPAP for respiratory support) (2) Severe mitral valve stenosis Status: Chronic Response to Treatment: Uncontrolled Problem Text: 01/20/19: cardio on board. Planned transfer for MVR to [facility]. as per CHF 12/31/18 TTE Gabriel: COMMENTS: Normal sinus rhythm with out intraventricular conduction disturbance. Isolated PVCs. M-mode and two-dimensional echocardiography was performed with pulsed, continuous wave, color flow and tissue Doppler studies. Mild concentric left ventricle hypertrophy with septal wall motion abnormality believed to be due to right ventricular pressure overload yet preserved global resting systolic function. At least moderately dilated left atrium. Unable to estimate mean left atrial pressure in light of intrinsic mitral valve disorder. Prominently dilated right heart chambers with hypokinesis of the right ventricular free wall and Doppler evidence of severe pulmonary hypertension. IVC size upper limits of normal with reduced respiratory collapse suggestive an elevated central venous pressure. Aortic valvular sclerosis without functional valvular abnormality. Normal aortic root size. 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 Normal appearing tricuspid valve with moderately severe insufficiency. No apparent intracardiac mass. Minuscule posterior pericardial effusion. Based on the above test findings we would recommend consideration of cardiac catheterization with view to mitral valvuloplasty versus replacement. DD: Pravin Rios MD, [facility] 12/31/181821 04 DS: KELLY 12/31/181942 (3) CKD (chronic kidney disease) stage 3, GFR 30-59 ml/min Status: Chronic Problem Text: at baseline cr ~1.5 (4) Acute on chronic diastolic (congestive) heart failure Status: Acute Response to Treatment: Improving Problem Text: valvular heart disease contributes but she has hypertension, obesity as background for underlying diastolic dysfunction. (5) DM2 (diabetes mellitus, type 2) Status: Chronic Problem Text: HD: glar 60 c anahi 5, canda 100, glim 2 BG mid 100s on det 40 (6) Anemia Status: Chronic Problem Text: 2 CKD/Fe deficiency anemia 02/18 8.5, HO stools, + Fe sucrose chronic hgb 9s 12/27/18 % sat 7 (7) Respiratory failure Status: Acute Response to Treatment: Improving Problem Text: hypoxic/hypercarbic remains off BIPAP since 01/17/19 Plan/VTE VTE Prophylaxis Ordered?: Yes VS, I&O, 24H, [facility] Vital Signs/I&O Vital Signs Date Time Temp Pulse Resp B/P (MAP) Pulse Ox O2 Delivery O2 Flow Rate FiO2 01/20/19 04:00 96 Nasal Cannula 2.0 01/20/19 04:00 97.6 86 16 117/61 (79) 01/17/19 09:06 50 I&O- Last 24 Hours up to 6 AM 01/20/19 06:00 Intake Total 900 ml Output Total 1650 ml Balance -750 ml Laboratory Data 24H LABS Laboratory Tests 2 01/19/19 11:35: Bedside Glucose (Misc Panel) 248H 01/19/19 16:38: Bedside Glucose (Misc Panel) 227H 01/19/19 20:24: Bedside Glucose (Misc Panel) 335H 01/20/19 06:26: Bedside Glucose (Misc Panel) 80 Microbiology Microbiology 01/17/19 Blood Culture - Preliminary, Resulted No Growth after 72 hours. All specime... 01/17/19 Blood Culture - Preliminary, Resulted No Growth after 72 hours. All specime... 01/17/19 Acid Fast Stain, Received Pending 01/17/19 Mycobacterial Culture, Received Pending 01/17/19 Fungal Smear, Received Pending 01/17/19 Fungal Culture, Received Pending 01/17/19 Gram Stain - Final, Complete 01/17/19 Body Fluid Culture - Final, Complete 01/17/19 Anaerobic Culture - Final, Complete 01/17/19 Respiratory Virus Panel (PCR) (BRIANNA) - Final, Complete Maria Dolores Cesar January 20, 2019 07:56 Luis Colmenares MD January 20, 2019 12:56
[2019-01-20] MEDS: PANTOPRAZOLE 40MG TAB (PROTONIX) PO SCH (08:05)
[2019-01-20] MEDS: FUROSEMIDE 40 MG/4 ML VIAL (J1940) IV SCH (08:06)
[2019-01-20] MEDS: CARVedilol 12.5 MG TAB PO SCH ×2 (08:06→20:29)
[2019-01-20] MEDS: FERROUS SULFATE 325MG TAB PO SCH (08:06)
[2019-01-20 08:08] LABS: BASO # 0.1 10^3/uL (0.0-0.2); BASO % 0.7 % (0.0-1.0); EOS % 0.1 % (0.0-3.0); HEMATOCRIT 34.3 % (36.0-47.0); HEMOGLOBIN 10.3 g/dl (12.0-15.5); LYMPH # 0.8 10^3/uL (1.5-4.5); LYMPH % 8.4 % (24.0-44.0); MEAN CORPUSCULAR HEMOGLOBIN 24.4 pg (27.0-33.0); MEAN CORPUSCULAR VOLUME 81.3 fl (80.0-96.0); MONO # 0.6 10^3/uL (0.0-0.8); NEUTROPHILS # 7.7 10^3/uL (1.8-7.7); NEUTROPHILS % 83.4 % (36.0-66.0); PLATELET COUNT, AUTOMATED 263 10^3/uL (150-450); RED BLOOD COUNT 4.22 10^6/uL (4.00-5.40); WHITE BLOOD COUNT 9.2 10^3/uL (4.0-10.0)
[2019-01-20] MEDS: ACETAMINOPHEN TAB 650MG DOSE (2X325MG) PO PRN (08:10)
--- NOTE | 2019-01-20 08:20 | IPN ---
DATE: 01/20/2019 Mrs. Kuo tells me that she is much improved since her admission. She does not have any orthopnea or paroxysmal nocturnal dyspnea (PND). She has not done a lot of ambulation yet, but she feels that there has been fairly dramatic improvement. Denies any chest pain. PHYSICAL EXAMINATION: Her vital signs reveal blood pressure 117/61, heart rate is mostly in 80s. It is irregular rhythm with relatively frequent ectopy. She is afebrile. Saturation 96% on 2 liters of oxygen. Fluid balance yesterday was documented negative 190. Weight is 79.5, which is actually up since yesterday, but about 4 kg down since admission. Lungs are clear to auscultation. Good air movement. Heart exam reveals a regular rhythm. Surprisingly, I do appreciate diastolic murmur at the apex, very faint, 1-2/6. Abdomen: Soft, nontender. Extremities are free of edema. Neurologically, she is intact and her jugular venous pulse (JVP) is not high. Laboratories this morning are all pending. ASSESSMENT AND PLAN: Mrs. Kuo, a 60-year-old female who has longstanding history of diabetes who presented with pulmonary edema. This is her third presentation within the last 2 months. This time she required noninvasive ventilatory support. An echocardiogram performed 2 weeks ago revealed severe mitral stenosis with mean gradient over 20 mmHg. I believe that at this point, it is obvious that she will need surgical intervention. Apparently, no arrangements in this regard have been made yet and I will contact [facility] for tentative transfer either today or soon. I talked to the patient about the rationale and she already was prepared and wants to proceed because she realizes that her condition is rapidly declining.
[2019-01-20 08:56] LABS: CALCIUM LEVEL 7.9 MG/DL (8.8-10.2); CREATININE FOR GFR 1.27 MG/DL (0.55-1.30); GLOMERULAR FILTRATION RATE 44.5 (>45); MAGNESIUM LEVEL 1.6 MG/DL (1.8-2.4); POTASSIUM SERUM 4.1 MEQ/L (3.5-5.1)
[2019-01-20] MEDS ORDERED: MAG SULF 1GM/100ML (MAG RUN) 1 GM in APPROPRIATE DILUENT 1 EA IV ONE (12:00)
[2019-01-20 14:14] LABS: ALBUMIN % 55.5 % (55.8-66.1); ALPHA-1-GLOBULIN % 6.8 % (2.9-4.9)
[2019-01-20 14:15] LABS: ALPHA-1-GLOBULINS 0.37 GM/DL (0.17-0.41); ALPHA-2-GLOBULINS 0.76 GM/DL (0.42-0.99); BETA-1-GLOBULINS 0.42 GM/DL (0.28-0.60); BETA-1-GLOBULINS % 7.7 % (4.7-7.2); BETA-2-GLOBULINS 0.28 GM/DL (0.19-0.55); BETA-2-GLOBULINS % 5.2 % (3.2-6.5); GAMMA GLOBULIN % 10.8 % (11.1-18.8); GAMMA GLOBULINS 0.58 GM/DL (0.65-1.58)
[2019-01-20] MEDS: POLYVINYL ALCOHOL OPHTH SOLN 15 ML(LIQUITEARS) OU PRN (20:29)
[2019-01-20] MEDS: PRAVASTATIN 20 MG TAB PO SCH (20:29)
[2019-01-20] MEDS: LEVEMIR (INSULIN DETEMIR) 1 UNITS/0.01ML SC SCH (20:30)
--- NOTE | 2019-01-20 20:40 | ECHO ---
DATE OF PROCEDURE: 01/20/2019 REFERRING PHYSICIAN: Jameson Monroy MD INDICATION: Cardiomegaly. Mitral stenosis. HEIGHT: 175 cm WEIGHT: 79 kg DIMENSIONS: IVS: 1.1 LV: 5.1 LVPW: 1.0 LA: 4.3 Aorta: 2.8 IVC: 1.9 Left atrial volume index: 53 The study is of acceptable technical quality. The patient is in sinus rhythm. Left ventricle is normal size and has hyperdynamic contractility, I estimate left ventricular ejection fraction (LVEF) around 70%. No segmental wall motion abnormalities are appreciated. Right ventricle appears to be normal size and is normally contractile. There is severe biatrial enlargement, left atrium is much larger than right. Aortic valve is minimally sclerotic, but has normal mobility. There are heavy abnormalities of mitral valve with very prominent calcifications at the base of posterior mitral leaflet and there is a restricted anterior mitral leaflet with typical hockey stick appearance in diastole consistent with severe mitral stenosis. Tricuspid and pulmonic valves appear normal. No pericardial effusion is noted. Left pleural effusion is noted. Inferior vena cava is on upper limits of normal size. Aortic root is normal. Aortic arch also appears normal. Abdominal aorta was not visualized. Doppler interrogation of aortic valve reveals no significant stenosis or insufficiency. There is mild mitral insufficiency, but severe mitral stenosis. The documented mean gradient was 13 and peak gradient 21 mmHg, but I believe that it underestimates the true gradient. Calculated mitral valve area was only 0.7 cm2 based on pressure half-time method. There is moderate tricuspid insufficiency. Calculated pulmonary artery pressure is in minimum in 70s corresponding to severe pulmonary hypertension. Pulmonic valve exhibits trace insufficiency. CONCLUSION 1. Study is of acceptable technical quality. 2. Normal left ventricle (LV) size with hyperdynamic LV systolic function. 3. Aortic sclerosis, but no significant stenosis or insufficiency. 4. Severe mitral stenosis. 5. Moderate tricuspid insufficiency. 6. High central venous pressure and severe pulmonary hypertension. COMMENTS Subacute bacterial endocarditis (SBE) prophylaxis is not recommended. Mitral stenosis is undoubtedly the underlying principal pathology. In appropriate clinical setting this clearly indicates a need for mitral valve replacement. Based on characteristics of the valve, this is not a valve that will be amendable to valvuloplasty.
[2019-01-21] VITALS (10 sets, daily range): BP systolic 112–137; BP diastolic 61–79; O2SAT 90–95
[2019-01-21] MEDS: ACETAMINOPHEN TAB 650MG DOSE (2X325MG) PO PRN (04:31)
[2019-01-21 05:00] LABS: HEMATOCRIT 30.1 % (36.0-47.0); HEMOGLOBIN 8.7 g/dl (12.0-15.5); MEAN CORPUSCULAR HEMOGLOBIN 23.2 pg (27.0-33.0); MEAN CORPUSCULAR HGB CONC 28.9 g/dl (32.0-36.5); MEAN CORPUSCULAR VOLUME 80.3 fl (80.0-96.0); PLATELET COUNT, AUTOMATED 242 10^3/uL (150-450); RED BLOOD COUNT 3.75 10^6/uL (4.00-5.40); WHITE BLOOD COUNT 7.9 10^3/uL (4.0-10.0)
[2019-01-21 05:15] LABS: CALCIUM LEVEL 7.7 MG/DL (8.8-10.2); CREATININE FOR GFR 1.31 MG/DL (0.55-1.30); POTASSIUM SERUM 3.8 MEQ/L (3.5-5.1)
[2019-01-21] MEDS ORDERED: LEVEMIR (INSULIN DETEMIR) 1 UNITS/0.01ML SC SCH ×2 (09:00→21:00)
[2019-01-21] MEDS: FERROUS SULFATE 325MG TAB PO SCH (09:00)
[2019-01-21] MEDS: FUROSEMIDE 40 MG/4 ML VIAL (J1940) IV SCH (09:19)
[2019-01-21] MEDS: HumaLOG INSULIN (NovoLOG) PER UNIT SC SCH (09:20)
[2019-01-21] MEDS: PANTOPRAZOLE 40MG TAB (PROTONIX) PO SCH (09:36)
[2019-01-21] MEDS: CARVedilol 12.5 MG TAB PO SCH (09:37)
[2019-01-21] MEDS ORDERED: SLF 3 ML SYR IV PRN (10:15)
--- NOTE | 2019-01-21 10:45 | IPNPDOC ---
Subjective Date Seen The patient was seen on 01/21/19. Subjective Chief Complaint/HPI CHF Events since last encounter Planned transfer to [facility] for MVR with Dr. Oneal. patient aware. transfer placed by Dr. Kelly. Constitutional: Denies: Chills, Fever, Night Sweats Pulmonary: Reports: Dyspnea (baseline) Cardiovascular: Denies: Chest Pain, Palpitations, Orthopnea, Paroxysmal Noc. Dyspnea, Lt Headedness Objective Physical Examination General Exam: Positive: Alert, No Acute Distress Neck Exam: Positive: JVD (8 cm) Chest Exam: Positive: Diminished; Negative: Rales, Rhonchi, Wheezing Heart Exam: Positive: Rate Normal, Regular Rhythm, Murmurs (diastolic snap/rumble, loud S1) Abdomen Exam: Positive: Normal bowel sounds Extremity Exam: Positive: Edema (1+ edema right > Left) Assessment /Plan Problems (1) CHF due to valvular disease Problem Text: 01/21/19: transfer to [facility] today for MV annuloplasty vs replacement. 01/20/19: continues to [facility]. labs pending for today. net - [id number] since 01/17 admission (including 01/17 R tesis of 2059) I will back of on the diuretic for now as she seems much better compensated. M onitor BP and Rf Plan is to arrange transfer to [facility] for catherization +/- MV annuloplasty vs replacement 01/18 HD amlo 5 and los 100 held given SBP 100-110 c persistent decompensation; watch preload reduction given severe MS/PHTHN/hypokinetic R ventricle; plan tx to [facility] 01/20 for catherization +/- MV annuloplasty vs replacement (this will be 3rd admission in last 4W for recurrent CHF, between 2nd and 3rd admission, patient was home for <24H and came back requiring BIPAP for respiratory support) (2) Severe mitral valve stenosis Status: Chronic Response to Treatment: Uncontrolled Problem Text: 01/20/19: cardio on board. Planned transfer for MVR to [facility]. as per CHF 12/31/18 TTE Gabriel: COMMENTS: Normal sinus rhythm with out intraventricular conduction disturbance. Isolated PVCs. M-mode and two-dimensional echocardiography was performed with pulsed, continuous wave, color flow and tissue Doppler studies. Mild concentric left ventricle hypertrophy with septal wall motion abnormality believed to be due to right ventricular pressure overload yet preserved global resting systolic function. At least moderately dilated left atrium. Unable to estimate mean left atrial pressure in light of intrinsic mitral valve disorder. Prominently dilated right heart chambers with hypokinesis of the right ventricular free wall and Doppler evidence of severe pulmonary hypertension. IVC size upper limits of normal with reduced respiratory collapse suggestive an elevated central venous pressure. Aortic valvular sclerosis without functional valvular abnormality. Normal aortic root size. 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 Normal appearing tricuspid valve with moderately severe insufficiency. No apparent intracardiac mass. Minuscule posterior pericardial effusion. Based on the above test findings we would recommend consideration of cardiac catheterization with view to mitral valvuloplasty versus replacement. DD: Pravin Rios MD, [facility] 12/31/181821 DT: HERMES 12/31/181904 DS: KELLY 12/31/181942 (3) CKD (chronic kidney disease) stage 3, GFR 30-59 ml/min Status: Chronic Problem Text: at baseline cr ~1.5 (4) Acute on chronic diastolic (congestive) heart failure Status: Acute Response to Treatment: Improving Problem Text: valvular heart disease contributes but she has hypertension, obesity as background for underlying diastolic dysfunction. (5) DM2 (diabetes mellitus, type 2) Status: Chronic Problem Text: HD: glar 60 c anahi 5, canda 100, glim 2 BG mid 100s on det 40 (6) Anemia Status: Chronic Problem Text: 2 CKD/Fe deficiency anemia 02/18 8.5, HO stools, + Fe sucrose chronic hgb 9s 12/27/18 % sat 7 (7) Respiratory failure Status: Acute Response to Treatment: Improving Problem Text: hypoxic/hypercarbic remains off BIPAP since 01/17/19 Plan/VTE VTE Prophylaxis Ordered?: Yes VS, I&O, 24H, On License Of [facility] Vital Signs/I&O Vital Signs Date Time Temp Pulse Resp B/P (MAP) Pulse Ox O2 Delivery O2 Flow Rate FiO2 01/21/19 09:37 135/67 01/21/19 08:00 97.6 79 17 95 4.0 01/21/19 06:00 Nasal Cannula 01/17/19 09:06 50 I&O- Last 24 Hours up to 6 AM 01/21/19 06:00 Intake Total 1244 ml Output Total 1650 ml Balance -406 ml Laboratory Data 24H LABS Laboratory Tests 2 01/20/19 11:20: Bedside Glucose (Misc Panel) 246H 01/20/19 16:50: Bedside Glucose (Misc Panel) 412H 01/20/19 20:18: Bedside Glucose (Misc Panel) 396H 01/21/19 04:46: Nucleated Red Blood Cells % (auto) 0.0, Anion Gap 7L, Glomerular Filtration Rate 43.0L, Blood Urea Nitrogen 26H, Creatinine 1.31H, Sodium Level 140, Potassium Level 3.8, Chloride Level 108H, Carbon Dioxide Level 25, Calcium Level 7.7L CBC/BMP Laboratory Tests 01/21/19 04:46 Red Blood Count 3.75 L, Mean Corpuscular Volume 80.3, Mean Corpuscular Hemog lobin 23.2 L, Mean Corpuscular Hemoglobin Concent 28.9 L, Red Cell Distribution Width 19.9 H, Calcium Level 7.7 L Microbiology Microbiology 01/17/19 Blood Culture - Preliminary, Resulted No Growth after 72 hours. All specime... 01/17/19 Blood Culture - Preliminary, Resulted No Growth after 72 hours. All specime... 01/17/19 Acid Fast Stain, Received Pending 01/17/19 Mycobacterial Culture, Received Pending 01/17/19 Fungal Smear, Received Pending 01/17/19 Fungal Culture, Received Pending 01/17/19 Gram Stain - Final, Complete 01/17/19 Body Fluid Culture - Final, Complete 01/17/19 Anaerobic Culture - Final, Complete 01/17/19 Respiratory Virus Panel (PCR) (BRIANNA) - Final, Complete Maria Dolores Cesar [employer] ENGINEER January 21, 2019 10:45
--- NOTE | 2019-01-21 10:59 | IPN ---
DATE: 01/21/2019 SUBJECTIVE: The patient feels well today. She is not dyspneic, not having chest pain and appears to be comfortable. Reviewed the plan to transfer to [place] for operative correction either by repair or replacement of a mitral valve, which should reduce her likelihood of decompensation related congestive heart failure, primarily diastolic in detail and she is prepared for transfer when it happens. OBJECTIVE: Vital signs as recorded in nursing record reviewed here. Blood pressure 135/67, pulse 79, regular and respiratory rate is 17-18. Her oxygen saturation 95% currently receiving 4 liters, saturation ranging between 92-95% on 4. Lungs are clear to the bases bilaterally with good air movement and good air entry. Regular rhythm. Soft murmur noted left sternal border barely detectable. No pedal edema is seen. Review of her blood sugar shows that her blood sugar control is still not optimal. She tends to be pretty high late in the afternoon reviewing the miscellaneous results under lab, which shows specific fingerstick blood sugar measurements. Yesterday morning however, she was somewhat low at 80, became 412 by afternoon and 396 by nightly measurement. Currently receiving sliding scale coverage on top of once a day Levemir, which is dosed as an evening dose. This does not seem to be providing adequate control of her blood sugar late in the afternoon and suggestion is that we should perhaps change her Levemir to a twice a day schedule with the larger portion of her dosing being given in the morning. Since we are still not sure when she will transfer, we will make these changes to be applied for tomorrow's Levemir dosing if she does not transfer today. We will plan to switch her to 25 Levemir in the morning, 15 at bedtime and continue sliding-scale. We will continue her current other medications, which include furosemide 40 IV daily, carvedilol 12.5 twice a day. She is not currently on an angiotensin-converting enzyme (SHERI) inhibitor or angiotensin receptor yessi (ARB). Although, these would be desirable for long-term control of her pressure. She has had some renal function abnormalities, which cause some hesitation in continuing these agents right now. Her creatinine is 1.31 but during this hospitalization it was as high as 1.59 on 01/19/2019. Overnight her fluid balance is slightly negative, 606 negative since yesterday 1890 negative on the day before. ASSESSMENT: Severe mitral stenosis. Acute on chronic diastolic failure. Hypertension. Diabetes mellitus, type 2. PLAN: Modification of insulin regimen as outlined. Continue current therapeutics. it may soon be time to reduce her diuretic dose. Her BUN is 26, creatinine 1.31 which is slightly increased from yesterday, so we will go ahead and change her oral furosemide from her current IV dose starting tomorrow along with the new insulin regimen specified if she stays in hospital. If the transfers to [place], then the national account executive may not change, might wish to leave things as is until she is ready for discharge and we can pursue modifying her insulin regimen after discharge.
[2019-01-21] MEDS ORDERED: SLF 3 ML SYR IV SCH (14:00)
[2019-01-22] MEDS ORDERED: FUROSEMIDE 40 MG TAB PO SCH (09:00)
== END 2019-01-21 15:24 | disposition short-term general hospital (02) | DRG 306 ==
LOC: M ED 06:17 → M ED INP 10:51 → M ICU 13:01 → M PCU 01-18 14:36
PROVIDERS: ADMIT Family Medicine; ATTEND Family Medicine
PROC: 0W993ZZ Drainage of Right Pleural Cavity, Percutaneous Approach (ICD-10-PCS; principal; 2019-01-17)
DX: I05.0 Rheumatic mitral stenosis (principal); J96.01 Acute respiratory failure with hypoxia; J96.02 Acute respiratory failure with hypercapnia; I13.0 Hypertensive heart and chronic kidney disease with heart failure and stage 1 through stage 4 chronic kidney disease, or unspecified chronic kidney disease; I50.32 Chronic diastolic (congestive) heart failure; J90 Pleural effusion, not elsewhere classified; I27.20 Pulmonary hypertension, unspecified; N18.3 Chronic kidney disease, stage 3 (moderate); E11.22 Type 2 diabetes mellitus with diabetic chronic kidney disease; E11.65 Type 2 diabetes mellitus with hyperglycemia; E78.5 Hyperlipidemia, unspecified; E55.9 Vitamin D deficiency, unspecified; E88.09 Other disorders of plasma-protein metabolism, not elsewhere classified; E87.6 Hypokalemia; K21.9 Gastro-esophageal reflux disease without esophagitis; K44.9 Diaphragmatic hernia without obstruction or gangrene; D50.9 Iron deficiency anemia, unspecified; Z87.891 Personal history of nicotine dependence; Z98.41 Cataract extraction status, right eye; Z98.42 Cataract extraction status, left eye; Z79.4 Long term (current) use of insulin; Z79.899 Other long term (current) drug therapy; Z90.49 Acquired absence of other specified parts of digestive tract

== ENCOUNTER 2019-02-06 13:30 | Inpatient (IN) | payer MEDICARE ==
[~2019-02-06] VITALS: Ht 175.3 cm; Wt 83.1 kg
[~2019-02-06 13:30] MED LIST changes: +CHOL4POW4 PO; +GLIM2TAB PO; +NYST1POW9 TOP; +PATIENT COMMENTS
[2019-02-06] MEDS: METOPROLOL 5 MG/5 ML VIAL IV SCH ×3 (14:06→14:36)
[2019-02-06 14:17] LABS: BASO # 0.1 10^3/uL (0.0-0.2); BASO % 0.5 % (0.0-1.0); EOS # 0.7 10^3/uL (0.0-0.50); EOS % 6.3 % (0.0-3.0); HEMATOCRIT 31.9 % (36.0-47.0); HEMOGLOBIN 9.3 g/dl (12.0-15.5); LYMPH # 0.9 10^3/uL (1.5-4.5); LYMPH % 8.2 % (24.0-44.0); MEAN CORPUSCULAR HEMOGLOBIN 24.1 pg (27.0-33.0); MEAN CORPUSCULAR HGB CONC 29.2 g/dl (32.0-36.5); MEAN CORPUSCULAR VOLUME 82.6 fl (80.0-96.0); MONO # 0.7 10^3/uL (0.0-0.8); MONO % 6.7 % (0.0-5.0); NEUTROPHILS # 8.4 10^3/uL (1.8-7.7); NEUTROPHILS % 76.6 % (36.0-66.0); PLATELET COUNT, AUTOMATED 371 10^3/uL (150-450); RED BLOOD COUNT 3.86 10^6/uL (4.00-5.40); WHITE BLOOD COUNT 10.9 10^3/uL (4.0-10.0)
[2019-02-06 14:29] LABS: INR 1.71; PROTHROMBIN TIME 20.4 SECONDS (12.1-14.4)
[2019-02-06 14:30] LABS: PARTIAL THROMBOPLASTIN TIME 31.6 SECONDS (25.4-37.6)
--- NOTE | 2019-02-06 14:32 | REP ---
Oral chest x-ray: Single view. History: Chest pain. Comparison study: January 18, 2019. Findings: The left pleural effusion seen on the previous radiograph is improved. There is evidence of hiatal hernia. There is still some slight blunting of the left lateral pleural angle. Heart is mildly enlarged. No new infiltrate. Electronically Signed by Claude Mendoza MD 02/06/2019 02:23 P
[2019-02-06 14:43] LABS: BILIRUBIN,DIRECT 0.2 MG/DL (0.0-0.2); BILIRUBIN,TOTAL 0.5 MG/DL (0.2-1.0); CALCIUM LEVEL 8.7 MG/DL (8.8-10.2); CK-MB VALUE MASS 2.1 NG/ML (<3.6); CREATININE FOR GFR 1.45 MG/DL (0.55-1.30); FREE T4 1.68 NG/DL (0.76-1.46); GLOMERULAR FILTRATION RATE 38.2 (>45); POTASSIUM SERUM 4.2 MEQ/L (3.5-5.1); THYROID STIMULATING HORMONE 3.74 uIU/ML (0.358-3.740); TOTAL PROTEIN 5.9 GM/DL (6.4-8.2); TROPONIN I 0.08 NG/ML (< 0.10)
[2019-02-06] MEDS ORDERED: METOPROLOL TART 25 MG TABLET PO ONE (15:15)
[2019-02-06] MEDS ORDERED: WARF-58 PO (15:39)
[2019-02-06] MEDS ORDERED: METO25TA4 PO (15:41)
[2019-02-06] MEDS ORDERED: NORC1TAB7 PO (15:44)
[2019-02-06] MEDS ORDERED: GLUCOSE 4 GM CHEW TABLET PO PRN (15:45)
[2019-02-06] MEDS ORDERED: NORCO, ANEXSIA 5/325MG TABLET (HYDROcodone/ACETAMINOPHEN) PO PRN (15:45)
[2019-02-06] MEDS ORDERED: GLUCAGON FOR INJ 1 MG VIAL (J1610) SC PRN (15:45)
[2019-02-06] MEDS ORDERED: DEXTROSE 50% 50 ML SYRINGE IV PRN (15:45)
[2019-02-06 16:00] VITALS: BP 128/60
[2019-02-06 16:55] LABS: HEMOGLOBIN A1c 8.8 %
[2019-02-06] MEDS ORDERED: WARFARIN SOD 5 MG TAB PO ONE (17:00)
[2019-02-06] MEDS ORDERED: diltiaZEM 125 MG in NS 100 ML IV SCH (17:00)
--- NOTE | 2019-02-06 18:02 | HPE ---
DATE OF ADMISSION: 02/06/2019 PRIMARY CARE PROVIDER: Luis Colmenares MD Patient has been signed out to Dr. Jameson Monroy at 4:00 p.m. on 02/06/2019. CHIEF COMPLAINT: "Fast heart rate" HISTORY OF PRESENT ILLNESS: This is a 68-year-old female with past medical history significant for severe mitral valve stenosis on echo that was done on 01/17/2019 causing congestive heart failure and hyperglycemic respiratory failure. The patient is a known diabetic, hyperlipidemic, hypertensive with chronic kidney disease, stage III, anemia of chronic disease, and was recently admitted in December 2018 for congestive heart failure (CHF). The patient has since been sent to Dr. Oneal in [place] and underwent a porcine bioprosthetic valve replacement and was discharged home this past week. Home care nurse visited her at home and she was found to have heart rate of 140 to 150 and atrial flutter. Patient otherwise denies any shortness of breath, chest pain, pressure, tightness, lightheadedness, dizziness, palpitations. She denies any orthopnea, dyspnea, paroxysmal nocturnal dyspnea and states that her lower extremity edema has improved in the past few weeks. She denies any recent weight gain, weight loss. Denies fever, chills or cough. She says that she has a little bit of pain from the incision site on the right abdomen, but has had no increasing redness or drainage from the area. In the emergency room she was found to have atrial flutter, ventricular rate of 155. She was given oral metoprolol, encouraged to take anticoagulation. She was agreeable to stay for rate control. It was explained to her that she is at risk of developing cerebrovascular accident (CVA) in the future if she is not anticoagulated. She is currently living with her sister and has been ambulating well. She has been sleeping on the sofa on the first floor. No dyspnea on exertion when she walks around the house and has had no other complaints. Chest x-ray shows chronic effusion, left is improved with cardiomegaly. She has evidence of a hiatal hernia and blunting of the left lateral pleural angle but no new infiltrate. EKG shows atrial flutter with rapid ventricular rate of 155, early repolarization. Troponin is 0.08 and BNP is elevated at 10,181. Creatinine is 1.45 which is baseline. Hospitalist was asked to admit for atrial flutter with rapid ventricular rate for rate control and anticoagulation. PAST MEDICAL HISTORY: Congestive heart failure with preserved ejection fraction 75% on transthoracic echocardiogram 12/31/2018 secondary to severe mitral valve stenosis. 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 Severe pulmonary hypertension with right ventricular systolic pressure 65 mmHg with a hypokinetic right ventricle free wall. Chronic kidney disease, stage III. GFR of 35 to 40, at baseline. Recurrent diverticulitis. Hiatal hernia. Gastroesophageal reflux disease. Nicotine addition. Has not smoked cigarette since before . Iron deficiency anemia. Type 2 diabetes. Poorly controlled. A1c of 9.9. Hypertension. Dyslipidemia. PAST SURGICAL HISTORY: Porcine mitral valve replacement due to severe mitral regurgitation (MR) causing congestive heart failure (CHF), Dr. Oneal January 2019. Appendectomy. Bilateral cataract surgery. Colonoscopy in 2005. section. Patient has one child. HOME MEDICATIONS: - Coreg 12.5 mg twice a day - amlodipine 5 daily - cholestyramine 4 grams twice a day - furosemide 40 daily - glimepiride 2 mg twice a day - [place] 5/325 one tablet every 6 as needed - losartan 100 daily - metoprolol 25 twice a day - nystatin topically twice a day - potassium chloride 10 mEq twice a day - pravastatin 40 daily - warfarin 3 mg daily - Invokana 100 daily - Basaglar insulin 10 units subcutaneous daily - Aaliyah-Bid Caplet one tab twice a day - lansoprazole 30 daily - Tradjenta 5 mg daily ALLERGIES: PENICILLIN, SULFA, HYDROCHLOROTHIAZIDE, METFORMIN, PIOGLITAZONE, ROFECOXIB, TRIAMTERENE. FAMILY HISTORY: Mother , age 87. in 1998. Father, unknown medical problems, was a chronic smoker and alcoholic, in his 60s. Patient is one of eight children. Three brothers and two have heart disease. One brother with diabetes. Sister that she lives with also has diabetes. SOCIAL HISTORY: Patient has one daughter. Her healthcare proxy is her sister whom she lives with. She had a remote history of smoking. Has not touched cigarettes since before . No alcohol abuse or recreational drug use. She is retried. 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 She is currently living with her sister. REVIEW OF SYSTEMS: 12-point system negative aside from positive findings on history of presenting illness. PHYSICAL EXAMINATION: Temperature 97.8, pulse 144, irregularly irregular. Respiratory 16, blood pressure 140/82, 99% on room air. GENERAL: Patient has no respiratory distress. No conversational dyspnea. She is able to speak in full sentences. No cyanosis. No use of accessory respiratory muscles. She is awake, alert, oriented times three. Able to provide a history. She has facial hair, poor dentition. Looks unkempt. Slight elevation and jugular venous distention. Dry mucous membranes. No cervical lymphadenopathy or thyromegaly. LUNGS: Diminished at the bases. HEART: S1, S2, irregularly irregular. ABDOMEN: She has an incision in the right upper quadrant which has no erythema. Some tenderness, but no drainage. Positive bowel sounds in all four quadrants. No hepatosplenomegaly. No rebound or guarding. EXTREMITIES: Trace edema bilaterally. No cyanosis, clubbing. Dorsalis pedis, posterior tibialis pulses are felt. No abdominal bruits are noted. No carotid bruits are noted. EKG: Atrial flutter, ventricular rate of 155. Early repolarization. White count 10.9, hemoglobin 9.3, hematocrit 31, platelet count 371. Sodium 139, potassium 4.2, chloride 102, bicarbonate 28, BUN 22, creatinine 1.45, glucose of 247. A1c is pending. Calcium 8.7, total bilirubin 0.5, direct bilirubin 0.2. ALC 34, ALT 186. Alkaline phosphatase 123. Total CK 35. MB fraction 2.1. Rel index 6.0, troponin 0.08, BNP 40663. Total protein 5.9, albumin of 3. Lipase 173. TSH 3.74. Free T4 is 1.68. IMAGING STUDIES: Chest x-ray: Left pleural effusion seen on previous radiograph is improved. Evidence of hiatal hernia. There is some slight blunting of the left lateral pleural angle. Heart is mildly enlarged with no new infiltrate. ASSESSMENT AND PLAN: This is a 68-year-old female with history of severe mitral stenosis, congestive heart failure secondary to mitral valve stenosis who recently underwent mitral valve replacement with a porcine valve by Dr. Oneal in [place] and had been doing well. Home care nurse presented today and she was found to have new onset atrial flutter and was sent to the ER. She remained asymptomatic. Vital signs were stable. Patient will be admitted as inpatient for two midnights to telemetry unit, PCU for heart rate control and anticoagulation. 1. Atrial flutter with rapid ventricular response. Patient remains asymptomatic. Denies chest pain, pressure, tightness, shortness of breath, lightheadedness, dizziness, near syncope at home. She was ambulating well around the house and had been sleeping on the first floor sofa at her sister's house. She has not experienced any chest heaviness or tightness during this episode. Patient did receive metoprolol orally in the ER, however, was inadequate. Heart rate remained in the 150s. She is currently being placed on Cardizem with a 20 mg IV bolus and a 5 mg intravenous drip overnight until rate is controlled. She has been given warfarin 5 mg this evening. There is no neurologic deficits at this time and does not need bridge therapy. Patient had previously been seen by Dr. Kelly and Dr. Mccarthy. Will defer to Dr. Monroy if he would like to get them consulted during this admission. Will check a TSH level. 2. History of congestive heart failure with preserved ejection fraction, EF of 70% from previous echo with no segmental wall motion abnormalities. Right ventricle appeared to be normal in size and contractile. She had severe mitral stenosis previously. Patient will be kept on 2 liters fluid restriction. Strict intake and output (I and Os) and daily weights. We will continue to monitor for decompensated congestive heart failure in light of uncontrolled atrial fibrillation. She otherwise denies any CHF symptoms such as dyspnea on exertion, PND, orthopnea or worsening lower extremity edema. She has not had any recent weight gain and says that her lower extremity has significantly improved since she has had her valve surgery and has been diuresed with daily Lasix at home. She will be continued on her home medications of carvedilol, Lasix, and losartan with holding parameters. She will be kept on strict I and Os, daily weights and fluid restriction during this admission. Telemetry to monitor patient's rate control for atrial flutter with rapid ventricle rate. 3. Hypertension. Appears to be well controlled at this time. She will be resumed on her home dose of losartan. Since we are starting her on Cardizem drip, her Coreg will be held temporarily. Once she is rate controlled she may be resumed back on beta blockade. 4. Type 2 diabetes with nephropathy. Patient will be kept on a consistent carbohydrate, no added salt diet, insulin sliding scale and be resumed back on her long acting Levemir insulin as well as short acting Lispro sliding scale. Oral hypoglycemics may be resumed as outpatient. Will check patient's A1c. 5. Hypothyroidism. 6. Dyslipidemia. Patient is currently not on any statins. Will check a lipid profile in the morning. 7. Severe mitral stenosis, status post mitral valve replacement. Dressing changes per Dr. Oneal's previous outpatient recommendations. Patient is resumed on her home medications, losartan, since she is currently on Cardizem was held off on beta blockade. May resume once rate is controlled. 8. History of gastroesophageal reflux disease and hiatal hernia. Continue on proton pump inhibitor (PPI). 9. Chronic kidney disease, stage III. Currently at baseline creatinine. Will monitor I and Os, daily weights and monitor metabolic panel. 10. Anemia of chronic disease. No acute indication for RBC transfusion. Will continue to monitor with repeat CBC in the morning. 11. Left pleural effusion, secondary to previous CHF which is improved after the mitral valve replacement. Continue to monitor I and Os. Avoid fluid overload. She appears to be clinically euvolemic. 12. Deep venous thrombosis (DVT) prophylaxis. Currently on warfarin to target INR 2 to 3. 13. Patient is being signed out to Dr. Jameson Monroy on 02/06/2019 at 4:00 p.m. ART
[2019-02-06] MEDS: HumaLOG INSULIN (NovoLOG) PER UNIT SC SCH ×2 (18:47→21:44)
[2019-02-06 20:00] VITALS: BP 113/68
[2019-02-06] MEDS ORDERED: CHOLESTYRAMINE 4 GM PWD PKT PO SCH (20:00)
[2019-02-06] MEDS: LEVEMIR (INSULIN DETEMIR) 1 UNITS/0.01ML SC SCH (21:44)
[2019-02-06 23:59] VITALS: BP 138/53
[2019-02-07] MEDS: ACETAMINOPHEN TAB 650MG DOSE (2X325MG) PO PRN (04:04)
[2019-02-07 05:14] LABS: HEMATOCRIT 29.5 % (36.0-47.0); HEMOGLOBIN 8.7 g/dl (12.0-15.5); MEAN CORPUSCULAR HEMOGLOBIN 24.2 pg (27.0-33.0); MEAN CORPUSCULAR HGB CONC 29.5 g/dl (32.0-36.5); MEAN CORPUSCULAR VOLUME 81.9 fl (80.0-96.0); PLATELET COUNT, AUTOMATED 363 10^3/uL (150-450); WHITE BLOOD COUNT 10.3 10^3/uL (4.0-10.0)
[2019-02-07 05:37] LABS: CALCIUM LEVEL 7.9 MG/DL (8.8-10.2); CHOLESTEROL RISK RATIO 3.821 (<5); CREATININE FOR GFR 1.27 MG/DL (0.55-1.30); GLOMERULAR FILTRATION RATE 44.5 (>45); MAGNESIUM LEVEL 1.8 MG/DL (1.8-2.4); POTASSIUM SERUM 3.9 MEQ/L (3.5-5.1)
--- NOTE | 2019-02-07 05:45 | ECGEPIP ---
[facility] - ED Test Date: 2019-02-06 Pat Name: ANSON BENSON Department: Room: [place] [address] Gender: Female Hand Glove Cleaner: abdoul : 1950 Requested By: Denise Ye Order Number: [id number] Reading MD: Demarco Christian Measurements Intervals [place] Rate: 155 P: NE: -1 QRS: QRSD: 117 T: 140 QT: 296 QTc: 476 Interpretive Statements ATRIAL FLUTTER WITH RAPID VENTRICULAR RESPONSE LEFT AXIS DEVIATION PATTERN CONSISTENT WITH PULMONARY DISEASE MODERATE INTRAVENTRICULAR CONDUCTION DELAY ST DEVIATION AND MODERATE T-WAVE ABNORMALITY, CONSIDER LATERAL ISCHEMIA RHYTHM/RATE CHANGE COMPARED TO 01/19/19 Electronically Signed on 02-07-2019 5:45:22 EDT by Demarco Christian
[2019-02-07 06:31] LABS: INR 2.03; PROTHROMBIN TIME 23.3 SECONDS (12.1-14.4)
[2019-02-07 08:00] VITALS: BP 126/67
[2019-02-07] MEDS: LACTOBACILLUS ACIDOPHILUS CAP (BACID) PO SCH (08:32)
[2019-02-07] MEDS: HumaLOG INSULIN (NovoLOG) PER UNIT SC SCH ×4 (08:32→20:06)
[2019-02-07] MEDS: LOSARTAN 50 MG TAB PO SCH (08:33)
[2019-02-07] MEDS: FUROSEMIDE 40 MG TAB PO SCH (08:33)
[2019-02-07] MEDS: PANTOPRAZOLE 40MG TAB (PROTONIX) PO SCH (08:33)
--- NOTE | 2019-02-07 09:46 | IPNPDOC ---
Subjective Date Seen The patient was seen on 02/07/19. Subjective Chief Complaint/HPI Feels ok and is eager to go home ENT: Denies: Head Aches Pulmonary: Denies: Dyspnea, Cough, Pleuritic Chest Pain Cardiovascular: Denies: Chest Pain, Orthopnea Gastrointestinal: Denies: Nausea, Vomiting, Abdominal Pain Neurological: Denies: Weakness, Numbness Psych: Reports: Mood Normal Objective Physical Examination General Exam: Positive: Alert, Cooperative, No Acute Distress Eye Exam: Positive: PERRLA, EOMI; Negative: Sclera icteric Neck Exam: Positive: Supple; Negative: thyromegaly Chest Exam: Positive: Clear to auscultation, Normal air movement; Negative: Rales, Rhonchi, Wheezing Heart Exam: Positive: Tachycardic, Irregular Rhythm; Negative: Murmurs, Rubs Abdomen Exam: Positive: Normal bowel sounds, Soft; Negative: Tenderness Extremity Exam: Negative: Clubbing, Edema Skin Exam: Negative: Rash, Lesion Psych Exam: Positive: Mental status NL Assessment /Plan Problems (1) Atrial fibrillation with rapid ventricular response Status: Acute Response to Treatment: Improving Problem Text: her rate is better, in the 110's but not where she should be. will change to po diltiazem regimen from her current drip. will need anticoag and accepts this requirement to reduce stroke risk. warfarin has been started. (2) Acute on chronic diastolic (congestive) heart failure Status: Acute Response to Treatment: Improving Problem Text: improving with better rate control. (3) Severe mitral valve stenosis Status: Chronic Response to Treatment: Stable Problem Text: now s/p mitral valve replacement, heterograft. (4) DM2 (diabetes mellitus, type 2) Status: Chronic Response to Treatment: Stable Problem Text: control has not been as good as desired chronically. Plan/VTE VTE Prophylaxis Ordered?: Yes Plan Medications: Change to PO Anticipated Discharge: Home VS, I&O, 24H, Fishbone Vital Signs/I&O Vital Signs Date Time Temp Pulse Resp B/P (MAP) Pulse Ox O2 Delivery O2 Flow Rate FiO2 02/07/19 08:33 126/67 02/07/19 08:00 96.8 121 20 97 02/06/19 17:16 Room Air I&O- Last 24 Hours up to 6 AM 02/07/19 06:00 Intake Total 930 ml Output Total 1250 ml Balance -320 ml Laboratory Data 24H LABS Laboratory Tests 2 02/06/19 14:02: Immature Granulocyte % (Auto) 1.7, White Blood Count 10.9H, Red Blood Count 3.86L, Hemoglobin 9.3L, Hematocrit 31.9L, Mean Corpuscular Volume 82.6, Mean Corpuscular Hemoglobin 24.1L, Mean Corpuscular Hemoglobin Concent 29.2L, Red Cell Distribution Width 21.6H, Platelet Count 371, Neutrophils (%) (Auto) 76.6H, Lymphocytes (%) (Auto) 8.2L, Monocytes (%) (Auto) 6.7H, Eosinophils (%) (Auto) 6.3H, Basophils (%) (Auto) 0.5, Neutrophils # (Auto) 8.4H, Lymphocytes # (Auto) 0.9L, Monocytes # (Auto) 0.7, Eosinophils # (Auto) 0.7H, Basophils # (Auto) 0.1, Nucleated Red Blood Cells % (auto) 0.0, Prothrombin Time 20.4H, Prothromb Time International Ratio 1.71, Activated Partial Thromboplast Time 31.6, Anion Gap 8, Glomerular Filtration Rate 38.2L, Estimated Mean Plasma Glucose 206H, Hemoglobin A1c 8.8, Calcium Level 8.7L, Aspartate Amino Transf (AST/SGOT) 34, Alanine Aminotransferase (ALT/SGPT) 186H, Alkaline Phosphatase 123H, Total Bilirubin 0.5, Direct Bilirubin 0.2, Total Creatine Kinase 35, Creatine Kinase MB 2.1, Creatine Kinase MB Relative Index 6.00H, Troponin I 0.08, GA-Mam-G-Type Natriuretic Peptide 95416K, Total Protein 5.9L, Albumin 3.0L, Albumin/Globulin Ratio 1.03, Lipase 173, Thyroid Stimulating Hormone (TSH) 3.740, Free Thyroxine 1.68H 02/06/19 18:23: Bedside Glucose (Misc Panel) 218H 02/06/19 20:12: Bedside Glucose (Misc Panel) 304H 02/07/19 04:29: Nucleated Red Blood Cells % (auto) 0.0, Anion Gap 7L, Glomerular Filtration Rate 44.5L, Calcium Level 7.9L, Magnesium Level 1.8, Triglycerides Level 151H, LDL Cholesterol 49, Total Cholesterol 107, Non-HDL Cholesterol (LDL + VLDL) 79, Total HDL Cholesterol 28L, Cholesterol/HDL Ratio 3.821 02/07/19 06:00: Prothrombin Time 23.3H, Prothromb Time International Ratio 2.03 CBC/BMP Laboratory Tests 02/06/19 14:02 Red Blood Count 3.86 L, Mean Corpuscular Volume 82.6, Mean Corpuscular Hemoglobin 24.1 L, Mean Corpuscular Hemoglobin Concent 29.2 L, Red Cell Distribution Width 21.6 H, Neutrophils (%) (Auto) 76.6 H, Lymphocytes (%) (Auto) 8.2 L, Monocytes (%) (Auto) 6.7 H, Eosinophils (%) (Auto) 6.3 H, Basophils (%) (Auto) 0.5, Neutrophils # (Auto) 8.4 H, Lymphocytes # (Auto) 0.9 L, Monocytes # (Auto) 0.7, Eosinophils # (Auto) 0.7 H, Basophils # (Auto) 0.1 02/07/19 04:29 Red Blood Count 3.60 L, Mean Corpuscular Volume 81.9, Mean Corpuscular Hemoglobin 24.2 L, Mean Corpuscular Hemoglobin Concent 29.5 L, Red Cell Distribution Width 21.2 H Luis Colmenares MD Feb 07, 2019 09:46
[2019-02-07 12:00] VITALS: BP 132/63
[2019-02-07 16:00] VITALS: BP 124/76
[2019-02-07] MEDS ORDERED: WARFARIN SOD 5 MG TAB PO SCH (17:00)
[2019-02-07 20:00] VITALS: BP 100/55
[2019-02-07] MEDS: LEVEMIR (INSULIN DETEMIR) 1 UNITS/0.01ML SC SCH (20:05)
[2019-02-07 23:59] VITALS: BP 121/65
[2019-02-08] MEDS: ACETAMINOPHEN TAB 650MG DOSE (2X325MG) PO PRN ×2 (00:07→04:51)
[2019-02-08 04:00] VITALS: BP 125/64
[2019-02-08 05:26] LABS: INR 2.5; PROTHROMBIN TIME 27.5 SECONDS (12.1-14.4)
[2019-02-08 05:35] LABS: CALCIUM LEVEL 7.6 MG/DL (8.8-10.2); CREATININE FOR GFR 1.53 MG/DL (0.55-1.30); GLOMERULAR FILTRATION RATE 35.9 (>45); POTASSIUM SERUM 3.9 MEQ/L (3.5-5.1)
[2019-02-08 08:00] VITALS: BP 107/62
[2019-02-08] MEDS: HumaLOG INSULIN (NovoLOG) PER UNIT SC SCH ×2 (08:47→12:30)
[2019-02-08 08:48] VITALS: BP 107/62
[2019-02-08] MEDS: LACTOBACILLUS ACIDOPHILUS CAP (BACID) PO SCH (08:48)
[2019-02-08] MEDS: LOSARTAN 50 MG TAB PO SCH (08:48)
[2019-02-08] MEDS: FUROSEMIDE 40 MG TAB PO SCH (08:49)
[2019-02-08] MEDS: PANTOPRAZOLE 40MG TAB (PROTONIX) PO SCH (08:49)
[2019-02-08] MEDS ORDERED: SLF 3 ML SYR IV PRN (10:30)
[2019-02-08] MEDS ORDERED: CARD120C3 PO (10:57)
[2019-02-08] MEDS ORDERED: WARF4TAB51 PO (10:57)
--- NOTE | 2019-02-08 13:49 | ECGEPIP ---
[facility] Test Date: 2019-02-08 Pat Name: ANSON BENSON Department: Room: [place] [address] Gender: Female [employer]: CHARBEL : 1950 Requested By: Luis Farfan Order Number: [id number] Reading MD: Krish Sinclair Measurements Intervals [place] Rate: 79 P: 29 MA: 184 QRS: QRSD: 120 T: 139 QT: 406 QTc: 467 Interpretive Statements SINUS RHYTHM WITH OCCASIONAL SUPRAVENTRICULAR PREMATURE COMPLEXES Left atrial enlargement POSSIBLE LATERAL MYOCARDIAL INFARCTION, OF INDETERMINATE AGE Normalized rhythm and rate when compared to tracing done 02-06-19 Electronically Signed on 02-08-2019 13:48:56 EDT by Krish Sinclair
[2019-02-08] MEDS ORDERED: SLF 3 ML SYR IV SCH (14:00)
--- NOTE | 2019-02-09 10:55 | DSES ---
DATE OF ADMISSION: 02/06/2019 DATE OF DISCHARGE: 02/08/2019 HISTORY: Autumn is recently status post mitral valve replacement done at [facility]. She was discharged. Became dyspneic and came to the ED and found to have atrial fibrillation with rapid ventricular response. She had been discharged on warfarin but was not yet therapeutic her dose of warfarin 3 mg at the time of her discharge. She was not therapeutic dose in hospital was increased to 5 mg. She was also metoprolol 25 mg by mouth twice a day but was not sure whether she was supposed to be taking it and carvedilol or whether it was intended as a replacement of carvedilol and she was on amlodipine 5 mg a day. On admission her heart rate was 113-140. She received IV diltiazem and transitioned to by mouth diltiazem on 02/07/2019 which left her with rates in the low 100's 104 on 103 range which she tolerated well and this morning she has converted back to sinus rhythm with occasional PAC. Blood pressure 121-107 and O2 sat 94-98%. On the morning of discharge she is fully therapeutic with INR today of 2.50. She was 2.03 yesterday. On the day of discharge her lungs were clear. Rhythm is regular with occasional extrasystole and no murmur is noted. She has no significant pedal edema. Her right chest wounds are healing well. There is no drainage or redness and no significant tenderness. She had been on hydrocodone at the time of admission but she has not required any dosing with this agent since the and this agent will therefore be stopped. DISCHARGE MEDICATIONS: Discharge medications will include diltiazem 240 mg daily, warfarin 2 mg tablets she is to take two daily as she will have a followup prothrombin time tomorrow. She will resume Invokana 100 mg daily and glimepiride 2 mg twice a day. She will resume days Basiglar 10 units daily. She had been on acidophilus tablets which she will resume twice a day for chronic diarrhea problem, cholestyramine she has been on and has been stopped and we will only restart this if diarrhea returns since it complicates dosing other meds to a significant degree because of the period that she has not take meds related to inference with absorption from the binding resin. Nystatin powder to areas twice a day as required, potassium chloride 10 mEq twice a day, pravastatin 40 mg a day, amlodipine 5 mg, it was stopped, carvedilol was stopped, cholestyramine and hydrocodone, metoprolol and warfarin were stopped. We will hold Lasix. She may have sufficient diuretic effect from the Invokana. At this point she is not fluid overload her pressures are if anything on the low side and will hold off on any diuresis for now. Activity will be as tolerated. Diet will continue to be limited in terms of sodium 2 grams and consistent carbohydrates be reviewed the nature of potassium of vitamin K in food and avoid dark green leaky things and to enjoy iceberg lettuce and tomatoes as she might ordinarily do and emphasize importance of consistency in diet planning. She will need a prothrombin time tomorrow and she can present either to [facility] or out office in [place] for this. She will need to contact our office to communicate with our coagulation management RN who is Regina Villalba to confirm that the INR test has been ordered. She will followup with us as scheduled on February 12 and she will follow up with her cardiac team in [facility] in [place] and is as currently is scheduled. I would believe the plan is for her production service manager assume care of her prothrombin time INR after this but will coordinate that subsequently.
== END 2019-02-08 13:21 | disposition home or self-care (01) | DRG 308 ==
LOC: M ED 13:30 → EDBD 13:30 → M ED INP 15:41 → M PCU 17:33
PROVIDERS: ADMIT General Practice; ATTEND Family Medicine
DX: I48.92 Unspecified atrial flutter (principal); I50.33 Acute on chronic diastolic (congestive) heart failure; I13.0 Hypertensive heart and chronic kidney disease with heart failure and stage 1 through stage 4 chronic kidney disease, or unspecified chronic kidney disease; E11.22 Type 2 diabetes mellitus with diabetic chronic kidney disease; E78.5 Hyperlipidemia, unspecified; N18.3 Chronic kidney disease, stage 3 (moderate); D50.9 Iron deficiency anemia, unspecified; Z95.3 Presence of xenogenic heart valve; E11.21 Type 2 diabetes mellitus with diabetic nephropathy; E03.9 Hypothyroidism, unspecified; I27.20 Pulmonary hypertension, unspecified; Z98.41 Cataract extraction status, right eye; Z98.42 Cataract extraction status, left eye; Z87.891 Personal history of nicotine dependence; Z79.01 Long term (current) use of anticoagulants; Z79.899 Other long term (current) drug therapy; Z79.4 Long term (current) use of insulin; Z88.0 Allergy status to penicillin; Z88.2 Allergy status to sulfonamides; Z88.8 Allergy status to other drugs, medicaments and biological substances

== ENCOUNTER → 2019-02-11 | Outpatient (REF) | payer MEDICARE ==
[~2019-02-11] MED LIST changes: +CARD120C3 PO; +METO25TA4 PO; +NORC1TAB7 PO; -OMEP20CA3 PO; +OMEP20CA4 PO; +WARF-58 PO; +WARF4TAB51 PO
[2019-02-12 12:34] LABS: INR 2.04; PROTHROMBIN TIME 22.8 SECONDS (11.8-14.0)
== END ==
LOC: M SFHCCLAY 15:55
PROVIDERS: ATTEND Family Medicine
DX: Z51.81 Encounter for therapeutic drug level monitoring (principal)
CPT/HCPCS: 85610; G0463

== ENCOUNTER → 2019-03-24 | Outpatient (REF) | payer MEDICARE ==
[2019-03-24 17:19] LABS: PROTHROMBIN TIME 12.9 SECONDS (11.8-14.0)
== END ==
LOC: M SFHCCLAY 10:43
PROVIDERS: ATTEND Family Medicine
DX: Z51.81 Encounter for therapeutic drug level monitoring (principal)

== ENCOUNTER → 2019-04-01 | Outpatient (REF) | payer MEDICARE ==
[2019-04-01 17:13] LABS: INR 1.51; PROTHROMBIN TIME 17.9 SECONDS (11.8-14.0)
== END ==
LOC: M SFHCCLAY 11:02
PROVIDERS: ATTEND Family Medicine
DX: I48.0 Paroxysmal atrial fibrillation (principal); Z79.01 Long term (current) use of anticoagulants

== ENCOUNTER → 2019-04-08 | Outpatient (REF) | payer MEDICARE ==
[2019-04-08 18:15] LABS: INR 1.9; PROTHROMBIN TIME 21.6 SECONDS (11.8-14.0)
== END ==
LOC: M SFHCCLAY 10:48
PROVIDERS: ATTEND Family Medicine
DX: I48.0 Paroxysmal atrial fibrillation (principal); Z79.01 Long term (current) use of anticoagulants

== ENCOUNTER → 2019-04-15 | Outpatient (REF) | payer MEDICARE ==
[2019-04-15 17:32] LABS: INR 3.03; PROTHROMBIN TIME 31.3 SECONDS (11.8-14.0)
== END ==
LOC: M SFHCCAPE 10:07
PROVIDERS: ATTEND Family Medicine
DX: I48.0 Paroxysmal atrial fibrillation (principal); Z79.01 Long term (current) use of anticoagulants; Z95.2 Presence of prosthetic heart valve

== ENCOUNTER → 2019-04-22 | Outpatient (REF) | payer MEDICARE ==
[2019-04-22 17:22] LABS: INR 2.26; PROTHROMBIN TIME 24.8 SECONDS (11.8-14.0)
== END ==
LOC: M SFHCCLAY 09:46
PROVIDERS: ATTEND Family Medicine
DX: I48.0 Paroxysmal atrial fibrillation (principal); Z79.01 Long term (current) use of anticoagulants; Z95.2 Presence of prosthetic heart valve

== ENCOUNTER → 2019-04-29 | Outpatient (REF) | payer MEDICARE ==
[2019-04-29 17:05] LABS: INR 1.9; PROTHROMBIN TIME 21.5 SECONDS (11.8-14.0)
== END ==
LOC: M SFHCCAPE 09:48
PROVIDERS: ATTEND Family Medicine
DX: I48.0 Paroxysmal atrial fibrillation (principal); Z79.01 Long term (current) use of anticoagulants